=== PATIENT | female | born 1985 | race Caucasian/White ===

== ENCOUNTER 2021-03-23 18:01 | Emergency (ER) | payer SELFPAY ==
[2021-03-23] MEDS ORDERED: Dexamethasone 10 MG/ML SDV IVPUSH ONE (18:11)
[2021-03-23] MEDS ORDERED: Sodium Chloride 0.9% 1,000 ML IV ONE (18:11)
[2021-03-23] MEDS ORDERED: Acetaminophen 500 MG Tab PO ONE (18:12)
--- NOTE | 2021-03-23 18:19 | EDM.PDOC ---
<OrionphilPiotr gabriel Gurdeep - Last Filed: 03/23/21 18:36> ED HPI GENERAL MEDICAL PROBLEM - General Chief Complaint: Respiratory Problem Stated Complaint: LOW OXYGEN 85%, COVID POS Time Seen by Provider: 03/23/21 18:07 Source of Information: Reports: Patient History Limitations: Reports: No Limitations - History of Present Illness INITIAL COMMENTS - FREE TEXT/NARRATIVE: 35-year-old female past medical history obesity, asthma presents for worsening shortness of breath in setting of known Covid infection. Patient states that she began to feel symptomatic with Covid 4 days ago. She went for testing yesterday and tested positive. She was given albuterol nebulizer treatments and sent home. Today she notes worsening symptoms and has been checking her oxygen saturation at home which was 88% on room air. She notes body aches, fever, nonproductive cough, shortness of breath, diarrhea. She denies vomiting or chest pain. She feels dehydrated. She did not get a Covid vaccine. - Related Data Allergies Allergy/AdvReac Type Severity Reaction Status Date / Time No Known Allergies Allergy Verified 03/23/21 18:08 Home Meds: Home Meds Ramipril 10 mg PO DAILY 03/23/21 [History] ED ROS GENERAL - Review of Systems Review Of Systems: Comprehensive ROS is negative, except as noted in HPI. ED EXAM, GENERAL - Physical Exam Exam: See Below Exam Limited By: No Limitations General Appearance: Alert, WD/WN, No Apparent Distress Ears: Hearing Grossly Normal Throat/Mouth: Normal Voice, No Airway Compromise Head: Atraumatic, Normocephalic Respiratory/Chest: No Respiratory Distress, Lungs Clear, Normal Breath Sounds, No Accessory Muscle Use Cardiovascular: Normal Peripheral Pulses, Regular Rate, Rhythm GI/Abdominal: Soft, Non-Tender Extremities: Normal Inspection Neurological: Alert, Normal Cognition, Normal Gait Psychiatric: Normal Affect, Normal Mood Skin Exam: Warm, Dry, Intact, Normal Color Course - Re-Assessments/Exams Free Text/Narrative Re-Assessment/Exam: 03/23/21 18:18 Patient is hypoxic on room air to 86%. She improves with nasal cannula oxygen. Will get labs and imaging. 03/23/21 19:00 Patient care transitioned to Dr. Rodriguez pending labs and imaging Departure - Departure Disposition: Home, Self-Care 01 Clinical Impression: COVID-19, Hypoxia - Discharge Information Instructions: Hypoxia, COVID-19: How to Protect Yourself and Others - [facility] [place] Referrals: PCP,None [Primary Care Provider] - Forms: ED Department Discharge Additional Instructions: The following information is given to patients seen in the emergency department who are being discharged to home. This information is to outline your options for follow-up care. We provide all patients seen in our emergency department with a follow-up referral. The need for follow-up, as well as the timing and circumstances, are variable depending upon the specifics of your emergency department visit. If you don't have a primary care physician on staff, we will provide you with a referral. We always advise you to contact your personal physician following an emergency department visit to inform them of the circumstance of the visit and for follow-up with them and/or the need for any referrals to a consulting specialist. The emergency department will also refer you to a specialist when appropriate. This referral assures that you have the opportunity for follow-up care with a specialist. All of these measure are taken in an effort to provide you with optimal care, which includes your follow-up. Under all circumstances we always encourage you to contact your private physician who remains a resource for coordinating your care. When calling for follow-up care, please make the office aware that this follow-up is from your recent emergency room visit. If for any reason you are refused follow-up, please contact the [facility] Emergency Department at and asked to speak to the emergency department charge nurse. Please follow up with your primary care physician. If you do not have a primary care physician, see below: [facility] [address] [place] [id number] [facility] [address] [place] [id number] You were seen today for shortness of breath. This is likely related to your Covid diagnosis. We also did a CT that did not show any pulmonary emboli in your lungs. We placed you on oxygen through nasal cannula to help maintain oxygen level. We will send you home with an oxygen concentrator so that you can have oxygen while you are home. If you have worsening symptoms please return to ED immediately. Sepsis Event Note (ED) - Evaluation Sepsis Screening Result: No Definite Risk <Brandon Rodriguez - Last Filed: 03/23/21 21:13> Course - Vital Signs Last Recorded V/S: Last Vital Signs Temp 96.6 F L 03/23/21 18:13 Pulse 79 03/23/21 18:38 Resp 16 03/23/21 18:13 BP 145/84 H 03/23/21 18:38 Pulse Ox 98 03/23/21 18:38 - Orders/Labs/Meds Orders: Active Orders 24 hr Category Date Time Status Cardiac Monitoring [RC] . DIRECTED Care 03/23/21 18:11 Active Pulse Oximetry [RC] ASDIRECTED Care 03/23/21 18:11 Active Saline Lock Insert [OM.PC] Stat Oth 03/23/21 18:11 Ordered Labs: Laboratory Tests 03/23/21 03/23/21 03/23/21 Range/Units 18:09 18:09 18:09 WBC 5.01 (4.0-11.0) K/uL RBC 4.62 (4.30-5.90) M/uL Hgb 13.9 (12.0-16.0) g/dL Hct 40.2 (36.0-46.0) % MCV 87.0 (80.0-98.0) fL MCH 30.1 (27.0-32.0) pg MCHC 34.6 (31.0-37.0) g/dL RDW Std Deviation 40.7 (28.0-62.0) fl RDW Coeff of Zulma 13 (11.0-15.0) % Plt Count 256 (150-400) K/uL MPV 10.20 (7.40-12.00) fL Neut % (Auto) 60.1 (48.0-80.0) % Lymph % (Auto) 28.5 (16.0-40.0) % [place] % (Auto) 11.4 (0.0-15.0) % Eos % (Auto) 0.0 (0.0-7.0) % Baso % (Auto) 0.0 (0.0-1.5) % Neut # (Auto) 3.0 (1.4-5.7) K/uL Lymph # (Auto) 1.4 (0.6-2.4) K/uL [place] # (Auto) 0.6 (0.0-0.8) K/uL Eos # (Auto) 0.0 (0.0-0.7) K/uL Baso # (Auto) 0.0 (0.0-0.1) K/uL Nucleated RBC % 0.0 /100WBC Nucleated RBCs # 0 K/uL INR 1.04 APTT 29.9 (18.6-31.3) SEC D-Dimer, Quantitative 0.55 H (0.0-0.50) mg/L FEU Sodium 138 (136-145) mmol/L Potassium 2.8 L (3.5-5.1) mmol/L Chloride 96 L (98-107) mmol/L Carbon Dioxide 31.1 (21.0-32.0) mmol/L BUN 11 (7.0-18.0) mg/dL Creatinine 1.4 H (0.6-1.0) mg/dL Est Cr Clr Drug Dosing 51.00 mL/min Estimated GFR (MDRD) 42.5 ml/min Glucose 109 H (74-106) mg/dL Lactic Acid (0.4-2.0) mmol/L Calcium 7.9 L (8.5-10.1) mg/dL Total Bilirubin 0.8 (0.2-1.0) mg/dL AST 60 H (15-37) IU/L ALT 56 (14-63) IU/L Alkaline Phosphatase 88 (46-116) U/L Troponin I < 0.050 (0.000-0.056) ng/mL C-Reactive Protein 12.90 H (0.00-0.90) mg/dL Total Protein 7.6 (6.4-8.2) g/dL Albumin 3.5 (3.4-5.0) g/dL Globulin 4.1 H (2.6-4.0) g/dL Albumin/Globulin Ratio 0.9 (0.9-1.6) Urine HCG, Qual (NEGATIVE) SARS-CoV-2 RNA (REJI) (NEGATIVE) 03/23/21 03/23/21 03/23/21 Range/Units 18:15 18:22 19:22 WBC (4.0-11.0) K/uL RBC (4.30-5.90) M/uL Hgb (12.0-16.0) g/dL Hct (36.0-46.0) % MCV (80.0-98.0) fL MCH (27.0-32.0) pg MCHC (31.0-37.0) g/dL RDW Std Deviation (28.0-62.0) fl RDW Coeff of Zulma (11.0-15.0) % Plt Count (150-400) K/uL MPV (7.40-12.00) fL Neut % (Auto) (48.0-80.0) % Lymph % (Auto) (16.0-40.0) % [place] % (Auto) (0.0-15.0) % Eos % (Auto) (0.0-7.0) % Baso % (Auto) (0.0-1.5) % Neut # (Auto) (1.4-5.7) K/uL Lymph # (Auto) (0.6-2.4) K/uL [place] # (Auto) (0.0-0.8) K/uL Eos # (Auto) (0.0-0.7) K/uL Baso # (Auto) (0.0-0.1) K/uL Nucleated RBC % /100WBC Nucleated RBCs # K/uL INR APTT (18.6-31.3) SEC D-Dimer, Quantitative (0.0-0.50) mg/L FEU Sodium (136-145) mmol/L Potassium (3.5-5.1) mmol/L Chloride (98-107) mmol/L Carbon Dioxide (21.0-32.0) mmol/L BUN (7.0-18.0) mg/dL Creatinine (0.6-1.0) mg/dL Est Cr Clr Drug Dosing mL/min Estimated GFR (MDRD) ml/min Glucose (74-106) mg/dL Lactic Acid 0.9 (0.4-2.0) mmol/L Calcium (8.5-10.1) mg/dL Total Bilirubin (0.2-1.0) mg/dL AST (15-37) IU/L ALT (14-63) IU/L Alkaline Phosphatase (46-116) U/L Troponin I (0.000-0.056) ng/mL C-Reactive Protein (0.00-0.90) mg/dL Total Protein (6.4-8.2) g/dL Albumin (3.4-5.0) g/dL Globulin (2.6-4.0) g/dL Albumin/Globulin Ratio (0.9-1.6) Urine HCG, Qual NEGATIVE (NEGATIVE) SARS-CoV-2 RNA (REJI) POSITIVE H (NEGATIVE) Meds: Medications Discontinued Medications Generic Name Dose Route Start Last Admin Trade Name Shantell PRN Reason Stop Dose Admin Acetaminophen 1,000 mg 03/23/21 18:12 03/23/21 18:19 Acetaminophen 500 Mg Tab PO 03/23/21 18:13 1,000 mg ONETIME ONE Administration Dexamethasone 6 mg 03/23/21 18:11 03/23/21 18:19 Dexamethasone 10 Mg/Ml Sdv IVPUSH 03/23/21 18:12 6 mg ONETIME ONE Administration Sodium Chloride 1,000 mls @ 999 mls/hr 03/23/21 18:11 03/23/21 18:19 Normal Saline IV 03/23/21 19:11 999 mls/hr .Bolus ONE Administration Iopamidol 50 ml 03/23/21 20:28 03/23/21 20:29 Iopamidol 755 Mg/Ml 500 Ml Multipack Bottle IVPUSH 03/23/21 20:29 50 ml ONETIME STA Administration - Re-Assessments/Exams Free Text/Narrative Re-Assessment/Exam: 03/23/21 21:10 Patient elevated D-dimer we did a CT PE did not show any pulmonary emboli. Patient was try to wean off oxygen but oxygen level drops down to the mid 80s. She was placed back on 2 L oxygen improved greater than 98%. Patient looks comfortable on oxygen. We do not have any beds available in the hospital and also we have called various other patients there are no beds available in the state either. We will try to send patient home home O2 as she is requiring this to maintain oxygen saturation. Departure - Departure Time of Disposition: 21:12 Condition: Good - Discharge Information *PRESCRIPTION DRUG MONITORING PROGRAM REVIEWED*: Not Applicable *COPY OF PRESCRIPTION DRUG MONITORING REPORT IN PATIENT ELISA: Not Applicable Critical Care Note - Critical Care Note Total Time (mins): 45 Comments: Critical Care Procedure Note Authorized and Performed by: Dr. Rodriguez Total critical care time: Approximately Due to a high probability of clinically significant, life threatening deterioration, the patient required my highest level of preparedness to intervene emergently and I personally spent this critical care time directly and personally managing the patient. This critical care time included obtaining a history; examining the patient; pulse oximetry; ordering and review of studies; arranging urgent treatment with development of a management plan; evaluation of patient's response to treatment; frequent reassessment; and, discussions with other providers. This critical care time was performed to assess and manage the high probability of imminent, life-threatening deterioration that could result in multi-organ failure. It was exclusive of separately billable procedures and treating other patients and teaching time. Sepsis Event Note (ED) - Focused Exam Vital Signs: Vital Signs Temp Pulse Resp BP Pulse Ox 03/23/21 18:38 79 145/84 H 98 03/23/21 18:13 96.6 F L 84 16 146/85 H 89 L
[2021-03-23 18:42] LABS: BLOOD UREA NITROGEN,BUN 11 mg/dL (7.0-18.0); CARBON DIOXIDE,CO2 31.1 mmol/L (21.0-32.0); CHLORIDE,CL 96 mmol/L (98-107); GLUCOSE RANDOM 109 mg/dL (74-106); POTASSIUM,K 2.8 mmol/L (3.5-5.1); SODIUM,NA 138 mmol/L (136-145)
--- NOTE | 2021-03-23 19:47 | CR ---
Indication: COVID positive Technique: Chest 1 view Comparison: None Findings/Impression: Low lung volumes accentuate the cardiac size. There are patchy opacities in the left mid lung which may represent COVID pneumonia. No pneumothorax or effusion. No acute osseous abnormality. Dictated by Huma Agudelo MD @ 03/23/2021 7:46:52 PM (Electronically Signed)
[2021-03-23] MEDS ORDERED: Iopamidol 755 MG/ML 500 ML Multipack Bottle IVPUSH STA (20:28)
--- NOTE | 2021-03-23 20:48 | CT ---
HISTORY: COVID infection. Hypoxia. Elevated D-dimer. TECHNIQUE: CT chest with IV contrast, pulmonary embolism protocol. 50 mL [id number] IV. COMPARISON: None. FINDINGS: Pulmonary arteries: No pulmonary embolism. Main pulmonary artery is normal caliber. Lungs: Central airways are patent. Patchy airspace consolidation involving all lobes of both lungs, moderate on the left and mild on the right. Associated mild patchy ground-glass opacities bilaterally. Mild atelectasis in the left lower lobe. No pleural effusion or pneumothorax. Mediastinum: Thoracic aorta is normal caliber. No pericardial effusion. Lymph nodes: No lymphadenopathy. Musculoskeletal: Degenerative changes of the spine. Upper min: Unremarkable. IMPRESSION: 1. No pulmonary embolism. 2. Multifocal bilateral airspace disease consistent with pneumonia, likely COVID pneumonia. Please note that all CT scans at this facility use dose modulation, iterative reconstruction, and/or weight-based dosing when appropriate to reduce radiation dose to as low as reasonably achievable. Dictated by Yoav Mendez MD @ 03/23/2021 8:46:33 PM (Electronically Signed)
== END 2021-03-23 21:27 | disposition home or self-care (01) ==
LOC: MW.ED 18:01
DX: U07.1 COVID-19 (principal); R09.02 Hypoxemia; E66.9 Obesity, unspecified; Z68.36 Body mass index [BMI] 36.0-36.9, adult; Z79.899 Other long term (current) drug therapy
CPT/HCPCS: 36415; 71045; 71275; 80053; 81025; 83605; 84484; 85025; 85379; 85610; 85730; 86140; 87635; 93005; 96374; 99285; A9270; J1100; J7030; Q9967; U0002

== ENCOUNTER 2021-03-26 10:00 | Inpatient (IN) | payer MEDICAID ==
[2021-03-26] MEDS ORDERED: Sodium Chloride 0.9% 10 ML Syringe FLUSH PRN (10:44)
[2021-03-26] MEDS ORDERED: Acetaminophen 325 MG Tab PO ONE (10:44)
[2021-03-26] MEDS ORDERED: Sodium Chloride 0.9% 1,000 ML IV ONE (10:44)
[2021-03-26] MEDS ORDERED: Sodium Chloride 0.9% 2.5 ML Syringe FLUSH PRN (10:44)
[2021-03-26] MEDS ORDERED: Ketorolac 30 MG/ML SDV IVPUSH ONE (10:44)
[2021-03-26] MEDS ORDERED: Ondansetron 4 MG/2 ML SDV IVPUSH ONE (10:44)
--- NOTE | 2021-03-26 10:45 | EDM.PDOC ---
ED HPI GENERAL MEDICAL PROBLEM - General Chief Complaint: General Stated Complaint: COVID POS/SOB Time Seen by Provider: 03/26/21 10:07 Source of Information: Reports: Patient History Limitations: Reports: No Limitations - History of Present Illness INITIAL COMMENTS - FREE TEXT/NARRATIVE: HISTORY AND PHYSICAL: History of present illness: The patient is a 35-year-old female with a BMI of 37.3 presents to the emergency room with complaints of shortness of breath after being diagnosed with COVID-19 on March 22. Her symptoms started on March 19, 2021. The patient p resents on 2 L per nasal cannula of O2 with an SPO2 of 88%. The patient complains of a headache, dizziness, shortness of breath, and nausea. The patient states that on Monday when she presented due to worsening shortness of breath and was placed on home O2 whenever she would try to sleep her SPO2 would drop to 85%. The patient states that she has been unable to eat and is extremely hungry. In the emergency department the patient is hypertensive with a blood pressure 162/81 and tachycardic with a pulse of 103. She is febrile with a temperature of 104.4. She is tachypneic with a respiratory rate of 39 and shallow. Her SPO2 on 2 L per nasal cannula after exertion was 77%. Review of systems: As per history of present illness and below otherwise all systems reviewed and negative. Past medical history: As per history of present illness and as reviewed below otherwise noncontributory. Surgical history: As per history of present illness and as reviewed below otherwise noncontri butory. Social history: See social history for further information Family history: As per history of present illness and as reviewed below otherwise noncontributory. Physical exam: General: Well developed and well nourished. Alert and orientated x 3. Ill acting in appearance and mild distress. Nursing notes were reviewed. HEENT: Atraumatic, normocephalic, pupils equal and reactive bilaterally, negative for conjunctival pallor or scleral icterus, mucous membranes moist, TMs normal bilaterally, throat clear, neck supple, nontender, trachea midline. No drooling or trismus noted. No meningeal signs. No hot potato voice noted. Lungs: Clear to auscultation bilaterally. No wheezes, rales, or rhonchi. Chest nontender. Tachypneic, no accessory muscles used. Heart: S1S2, tachycardic without overt murmur, gallops, or rubs. No JVD. No peripheral edema Abdomen: Soft, nondistended, nontender. Normoactive bowel sounds. Negative for masses or costovertebral tenderness. Skin: Intact, warm, dry. No lesions or rashes noted. Hematologic: No petechiae or purpra. Mucosa appropriate color and normal nail bed color and refill. Extremities: Atraumatic, moves all extremities per self without difficulty or deficits, negative for cords or calf pain. Neurovascular unremarkable. Neuro: Awake, alert, oriented. Cranial nerves II through XII unremarkable. Cerebellum unremarkable. Motor and sensory unremarkable throughout. Exam nonfocal. Psychiatric: Mood and affect are appropriate. Normal thought process. Answering questions appropriately. Notes: *This patient was seen and evaluated during the 2019 SARS-CoV-2 novel coronavirus pandemic period. Community viral transmission is ongoing at time of this encounter and the emergency department is operating under pandemic response procedures. As stated above the patient is a 35-year-old female who presents to the emergency room with complaints of shortness of breath after being diagnosed with Covid on March 22. Her symptoms started on March 19, 2021. The patient presents on 2 L per nasal cannula of O2 with an SPO2 of 77%. The patient is tachypneic with a respiration rate of 40. The patient desats into the mid 80s with any exertion. At present the patient is on 5 L per nasal cannula with an SPO2 of 90% at rest. Dr. Nielsen consulted on possibility of high flow oxygen and his advised to wait at this time. The patient had a pulmonary angiogram on March 23 and was read as 1 no pulmonary embolism, 2 multifocal bilateral airspace disease consistent with pneumonia, likely Covid pneumonia per the radiologist. The patient has already been diagnosed with COVID pneumonia not order a repeat chest x-ray. The patient's urine hCG on 03/23/2021 was negative. I will not repeat another urine hCG. The patient states that she is not . The patient's temperature is 104.4 and I will treat her with Tylenol. Upon reading Dr. Rodriguez's notes he attempted to place the patient on 03/23/2021, however, was unable to due to no beds in several facilities and as the patient did well while on 2 L of O2 she was discharged home with instructions to follow-up if her O2 sat fell below 90%. I will order lab work, EKG, IV fluids, Tylenol, & Toradol. The patient CMP is significant for hyponatremia of 135 and hypokalemia of 3.2. The patient's chloride is also low at 94. Patient's lactic acid is normal at 1.2. The patient hypocalcemia is 880. Patient's total bilirubin is 1.6. Patient's AST 89, ALT 72 and albumin is 2.8. The patient CBC is unremarkable. I spoke with Dr. Farrell the hospitalist regarding admission. Dr. Rivas agrees with admission but would like a chest x-ray and a troponin added on. I have ordered these. Dr. Rivas would also like Remdesivir 200 mg loading dose while in the emergency department. I have ordered this also. Upon completion of the troponin and chest x-ray, the patient will be admitted inpatient on telemetry. The patient's troponin I is less than 0.050. Chest x-ray IMPRESSION: Relatively severe COVID pneumonitis has worsened since the prior exam. Upon transfer to the floor I was informed the patient's O2 sat was at 85% and the patient would be set up on high flow oxygen on the floor. I phoned Dr. Rivas to inform her of this change the patient. Diagnostics: EKG, CBC, CMP, blood cultures, lactic acid, Therapeutics: V fluids, Toradol, Tylenol, Zofran Impression: Hypoxemia, COVID-19 pneumonia Definitive disposition and diagnosis as appropriate pending reevaluation and review of above. head Pain Score (Numeric/FACES): 7 - Related Data Allergies Allergy/AdvReac Type Severity Reaction Status Date / Time No Known Allergies Allergy Verified 03/26/21 15:28 Home Meds: Home Meds Ramipril 10 mg PO DAILY 03/23/21 [History] Past Medical History - Past Health History Medical/Surgical History: Denies Medical/Surgical History Cardiovascular History: Reports: Hypertension - Infectious Disease History Infectious Disease History: Reports: Chicken Pox - Past Surgical History Other HEENT Surgeries/Procedures: wears glasses Social & Family History - Family History Family Medical History: No Pertinent Family History - Tobacco Use Tobacco Use Status *Q: Never Tobacco User - Caffeine Use Caffeine Use: Reports: None - Recreational Drug Use Recreational Drug Use: No ED ROS GENERAL - Review of Systems Review Of Systems: Comprehensive ROS is negative, except as noted in HPI. ED EXAM, GENERAL - Physical Exam Exam: See Below (See dictation) Course - Vital Signs Last Recorded V/S: Last Vital Signs Temp 96.3 F L 03/26/21 14:45 Pulse 87 03/26/21 14:45 Resp 20 03/26/21 14:45 BP 139/83 03/26/21 14:45 Pulse Ox 94 L 03/26/21 14:45 - Orders/Labs/Meds Orders: Active Orders 24 hr Category Date Time Status Admission Status [Patient Status] [ADT] Stat ADT 03/26/21 13:31 Active CULTURE BLOOD [BC] Stat Lab 03/26/21 10:39 Received CULTURE BLOOD [BC] Stat Lab 03/26/21 11:03 Received Sodium Chloride 0.9% [Saline Flush] Med 03/26/21 10:44 Active 10 ml FLUSH ASDIRECTED PRN Sodium Chloride 0.9% [Saline Flush] Med 03/26/21 10:44 Active 2.5 ml FLUSH ASDIRECTED PRN Blood Culture x2 Reflex Set [OM.PC] Stat Oth 03/26/21 10:44 Ordered Saline Lock Insert [OM.PC] Stat Oth 03/26/21 10:43 Ordered Medication Orders Albuterol/Ipratropium (Albuterol/Ipratropium 4 Gm Inhalation [place]) 1 gm INH Q4HRRT PRN PRN Reason: Dyspnea Dexamethasone (Dexamethasone 4 Mg Tab) 6 mg PO DAILY DUYEN Enoxaparin Sodium (Enoxaparin 40 Mg/0.4 Ml Syringe) 40 mg SUBCUT Q24H DUYEN Guaifenesin/Dextromethorphan (Guaifenesin/Dextromethorphan 100-10 Mg/5 Ml Soln 10 Ml Cup) 10 ml PO Q4H PRN PRN Reason: Cough Remdesivir 100 mg/ Sodium (Chloride) 100 mls @ 100 mls/hr IV Q24H DUYEN Stop: 03/30/21 14:29 Ondansetron HCl (Ondansetron 4 Mg/2 Ml Sdv) 4 mg IVPUSH Q6H PRN PRN Reason: Nausea/Vomiting Pantoprazole Sodium (Pantoprazole 40 Mg Tab.Cr) 40 mg PO DAILY DUYEN Sodium Chloride (Sodium Chloride 0.9% 10 Ml Syringe) 10 ml FLUSH ASDIRECTED PRN PRN Reason: Keep Vein Open Last Admin: 03/26/21 10:51 Dose: 10 ml Documented by: MARYANN Sodium Chloride (Sodium Chloride 0.9% 2.5 Ml Syringe) 2.5 ml FLUSH ASDIRECTED PRN PRN Reason: Keep Vein Open Last Admin: 03/26/21 10:51 Dose: 2.5 ml Documented by: MARYANN Labs: Laboratory Tests 03/26/21 03/26/21 03/26/21 Range/Units 10:39 10:39 10:39 WBC 9.22 (4.0-11.0) K/uL RBC 4.34 (4.30-5.90) M/uL Hgb 12.7 (12.0-16.0) g/dL Hct 38.3 (36.0-46.0) % MCV 88.2 (80.0-98.0) fL MCH 29.3 (27.0-32.0) pg MCHC 33.2 (31.0-37.0) g/dL RDW Std Deviation 42.0 (28.0-62.0) fl RDW Coeff of Zulma 13 (11.0-15.0) % Plt Count 267 (150-400) K/uL MPV 10.30 (7.40-12.00) fL Neut % (Auto) 90.9 H (48.0-80.0) % Lymph % (Auto) 5.3 L (16.0-40.0) % [place] % (Auto) 3.7 (0.0-15.0) % Eos % (Auto) 0.0 (0.0-7.0) % Baso % (Auto) 0.1 (0.0-1.5) % Neut # (Auto) 8.4 H (1.4-5.7) K/uL Lymph # (Auto) 0.5 L (0.6-2.4) K/uL [place] # (Auto) 0.3 (0.0-0.8) K/uL Eos # (Auto) 0.0 (0.0-0.7) K/uL Baso # (Auto) 0.0 (0.0-0.1) K/uL Nucleated RBC % 0.0 /100WBC Nucleated RBCs # 0 K/uL Sodium 135 L (136-145) mmol/L Potassium 3.2 L (3.5-5.1) mmol/L Chloride 94 L (98-107) mmol/L Carbon Dioxide 30.6 (21.0-32.0) mmol/L BUN 9 (7.0-18.0) mg/dL Creatinine 1.0 (0.6-1.0) mg/dL Est Cr Clr Drug Dosing 69.98 mL/min Estimated GFR (MDRD) > 60.0 ml/min Glucose 97 (74-106) mg/dL Lactic Acid 1.2 (0.4-2.0) mmol/L Calcium 8.0 L (8.5-10.1) mg/dL Total Bilirubin 1.6 H (0.2-1.0) mg/dL AST 89 H (15-37) IU/L ALT 72 H (14-63) IU/L Alkaline Phosphatase 101 (46-116) U/L Troponin I (0.000-0.056) ng/mL Total Protein 6.8 (6.4-8.2) g/dL Albumin 2.8 L (3.4-5.0) g/dL Globulin 4.0 (2.6-4.0) g/dL Albumin/Globulin Ratio 0.7 L (0.9-1.6) 03/26/21 Range/Units 10:39 WBC (4.0-11.0) K/uL RBC (4.30-5.90) M/uL Hgb (12.0-16.0) g/dL Hct (36.0-46.0) % MCV (80.0-98.0) fL MCH (27.0-32.0) pg MCHC (31.0-37.0) g/dL RDW Std Deviation (28.0-62.0) fl RDW Coeff of Zulma (11.0-15.0) % Plt Count (150-400) K/uL MPV (7.40-12.00) fL Neut % (Auto) (48.0-80.0) % Lymph % (Auto) (16.0-40.0) % [place] % (Auto) (0.0-15.0) % Eos % (Auto) (0.0-7.0) % Baso % (Auto) (0.0-1.5) % Neut # (Auto) (1.4-5.7) K/uL Lymph # (Auto) (0.6-2.4) K/uL [place] # (Auto) (0.0-0.8) K/uL Eos # (Auto) (0.0-0.7) K/uL Baso # (Auto) (0.0-0.1) K/uL Nucleated RBC % /100WBC Nucleated RBCs # K/uL Sodium (136-145) mmol/L Potassium (3.5-5.1) mmol/L Chloride (98-107) mmol/L Carbon Dioxide (21.0-32.0) mmol/L BUN (7.0-18.0) mg/dL Creatinine (0.6-1.0) mg/dL Est Cr Clr Drug Dosing mL/min Estimated GFR (MDRD) ml/min Glucose (74-106) mg/dL Lactic Acid (0.4-2.0) mmol/L Calcium (8.5-10.1) mg/dL Total Bilirubin (0.2-1.0) mg/dL AST (15-37) IU/L ALT (14-63) IU/L Alkaline Phosphatase (46-116) U/L Troponin I < 0.050 (0.000-0.056) ng/mL Total Protein (6.4-8.2) g/dL Albumin (3.4-5.0) g/dL Globulin (2.6-4.0) g/dL Albumin/Globulin Ratio (0.9-1.6) Meds: Medications Generic Name Dose Route Start Last Admin Trade Name Freq PRN Reason Stop Dose Admin Albuterol/Ipratropium 1 gm 03/26/21 18:00 Albuterol/Ipratropium 4 Gm Inhalation [place] INH Q4HRRT PRN Dyspnea Dexamethasone 6 mg 03/26/21 18:00 Dexamethasone 4 Mg Tab PO DAILY DUYEN Enoxaparin Sodium 40 mg 03/26/21 18:00 Enoxaparin 40 Mg/0.4 Ml Syringe SUBCUT Q24H DUYEN Guaifenesin/Dextromethorphan 10 ml 03/26/21 18:00 Guaifenesin/Dextromethorphan 100-10 Mg/5 Ml Soln 10 Ml Cup PO Q4H PRN Cough Remdesivir 100 mg/ Sodium 100 mls @ 100 mls/hr 03/27/21 13:30 Chloride IV 03/30/21 14:29 Q24H DUYEN Ondansetron HCl 4 mg 03/26/21 18:00 Ondansetron 4 Mg/2 Ml Sdv IVPUSH Q6H PRN Nausea/Vomiting Pantoprazole Sodium 40 mg 03/27/21 09:00 Pantoprazole 40 Mg Tab.Cr PO DAILY DUYEN Sodium Chloride 10 ml 03/26/21 10:44 03/26/21 10:51 Sodium Chloride 0.9% 10 Ml Syringe FLUSH 10 ml ASDIRECTED PRN Administration Keep Vein Open Sodium Chloride 2.5 ml 03/26/21 10:44 03/26/21 10:51 Sodium Chloride 0.9% 2.5 Ml Syringe FLUSH 2.5 ml ASDIRECTED PRN Administration Keep Vein Open Discontinued Medications Generic Name Dose Route Start Last Admin Trade Name Freq PRN Reason Stop Dose Admin Acetaminophen 650 mg 03/26/21 10:44 03/26/21 10:50 Acetaminophen 325 Mg Tab PO 03/26/21 10:45 650 mg NOW ONE Administration Sodium Chloride 1,000 mls @ 999 mls/hr 03/26/21 10:44 03/26/21 10:51 Normal Saline IV 03/26/21 11:44 999 mls/hr .BOLUS ONE Administration Remdesivir 200 mg/ Sodium 250 mls @ 250 mls/hr 03/26/21 12:30 03/26/21 12:44 Chloride IV 03/26/21 13:29 250 mls/hr ONETIME ONE Administration Ketorolac Tromethamine 30 mg 03/26/21 10:44 03/26/21 10:50 Ketorolac 30 Mg/Ml Sdv IVPUSH 03/26/21 10:45 30 mg ONETIME ONE Administration Ondansetron HCl 4 mg 03/26/21 10:44 03/26/21 10:50 Ondansetron 4 Mg/2 Ml Sdv IVPUSH 03/26/21 10:45 4 mg ONETIME ONE Administration Departure - Departure Time of Disposition: 13:31 Disposition: Admitted As Inpatient 65 Condition: Fair Clinical Impression: Hypoxemia, Pneumonia due to COVID-19 virus - Discharge Information Sepsis Event Note (ED) - Evaluation Sepsis Screening Result: Possible Sepsis Risk - Focused Exam Vital Signs: Vital Signs Temp Temp Pulse Resp BP Pulse Ox 03/26/21 12:26 81 28 H 124/70 91 L 03/26/21 11:35 101.4 F H 96 18 128/73 93 L 03/26/21 10:55 100 30 H 155/76 H 96 03/26/21 10:50 104.4 F H 03/26/21 10:27 103 H 20 154/85 H 89 L 03/26/21 10:22 104.4 F H 103 H 39 H 162/81 H 77 L - My Orders Last 24 Hours: My Active Orders 03/26/21 10:39 CULTURE BLOOD [BC] Stat 03/26/21 10:43 Saline Lock Insert [OM.PC] Stat 03/26/21 10:44 Sodium Chloride 0.9% [Saline Flush] 10 ml FLUSH ASDIRECTED PRN Sodium Chloride 0.9% [Saline Flush] 2.5 ml FLUSH ASDIRECTED PRN Blood Culture x2 Reflex Set [OM.PC] Stat 03/26/21 11:03 CULTURE BLOOD [BC] Stat 03/26/21 13:31 Admission Status [Patient Status] [ADT] Stat - Assessment/Plan Last 24 Hours: My Active Orders 03/26/21 10:39 CULTURE BLOOD [BC] Stat 03/26/21 10:43 Saline Lock Insert [OM.PC] Stat 03/26/21 10:44 Sodium Chloride 0.9% [Saline Flush] 10 ml FLUSH ASDIRECTED PRN Sodium Chloride 0.9% [Saline Flush] 2.5 ml FLUSH ASDIRECTED PRN Blood Culture x2 Reflex Set [OM.PC] Stat 03/26/21 11:03 CULTURE BLOOD [BC] Stat 03/26/21 13:31 Admission Status [Patient Status] [ADT] Stat
--- NOTE | 2021-03-26 10:49 | PCM.EKG ---
#1 Interpretation EKG Interpretation Comments: EKG performed 03/26/2021 at 10:41 AM sinus tachycardia heart rate 103 [place] interval 148 QT duration 409 [place] [address] and T normal compared to 03/23/2021 no significant change. Impression sinus tachycardia and otherwise normal
[2021-03-26 11:21] LABS: BLOOD UREA NITROGEN,BUN 9 mg/dL (7.0-18.0); CARBON DIOXIDE,CO2 30.6 mmol/L (21.0-32.0); CHLORIDE,CL 94 mmol/L (98-107); GLUCOSE RANDOM 97 mg/dL (74-106); POTASSIUM,K 3.2 mmol/L (3.5-5.1); SODIUM,NA 135 mmol/L (136-145)
[2021-03-26] MEDS ORDERED: REMDESIVIR 200 MG in Sodium Chloride 0.9% 250 ML IV ONE ×2 (11:39→12:30)
[2021-03-26] MEDS ORDERED: Ondansetron 4 MG/2 ML SDV IVPUSH PRN (18:00)
[2021-03-26] MEDS ORDERED: Albuterol/Ipratropium 4 GM Inhalation Spray INH PRN (18:00)
[2021-03-26] MEDS: Enoxaparin 40 MG/0.4 ML Syringe SUBCUT SCH (18:45)
[2021-03-26] MEDS: Dexamethasone 4 MG Tab PO SCH (18:45)
--- NOTE | 2021-03-26 18:52 | PCM.HP.2 ---
<Elen Cortes - Last Filed: 03/26/21 18:44> H&P History of Present Illness - General Date of Service: 03/26/21 Admit Problem/Dx: Admission Diagnosis/Problem Admission Diagnosis/Problem Hypoxemia - History of Present Illness Initial Comments - Free Text/Narative: The patient is a 35-year-old female, on day 1 of service, with a significant past medical history of hypertension, who was admitted to the medical floor today due to acute respiratory failure secondary to COVID-19 pneumonia. The patient explains that on 03/22 she was diagnosed with COVID-19. Her symptoms started on 03/19 with shortness of breath, nausea, nonbilious and nonbloody vomiting, frontal headache which is 4 out of 10 in intensity, dull in nature, and nonradiating, and dizziness. The patient explains that she has had many recent sick contacts with COVID-19 and she attributes her current infection to that. She denies any chest pain, palpitations, abdominal pain, diarrhea, loss of taste or smell, but does admit to feeling extremely tired. On social history, she denies any cigarette smoking, alcohol consumption, or recreational drug use. Her family history is consistent with hypertension in both her mother and father. She does not have any allergies. She has no other complaints at this time. On CBC her white blood cell count is 9.22, hemoglobin is 12.7, hematocrit is 38.3, and platelet count is 267 On CMP, her sodium is 135, potassium 3.2, chloride is 94, carbon dioxide is 30.6, AST is 89, ALT is 72 On EKG, she is sinus tachycardic, with a heart rate of 103, CT interval 148, QT duration of 409, QRS is normal ST is normal In the emergency room, she was seen by Dr. Nielsen, she had 2 blood cultures drawn which are pending, a chest x-ray done which is pending, 1 normal saline bolus of 1000 mL, as she was initiated on remdesivir 200 mg per IV route once. 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 Denies: Diaphoresis, Decreased Appetite HEENT: Reports: Headaches. Denies: Sore Throat Pulmonary: Reports: Shortness of Breath, Cough. Denies: Wheezing Cardiovascular: Denies: Chest Pain, Palpitations Gastrointestinal: Denies: Abdominal Pain Genitourinary: Denies: Dysuria Exam - Exam Exam: See Below - Vital Signs Vital Signs: Last Vital Signs Temp 96.3 F L 03/26/21 14:45 Pulse 87 03/26/21 14:45 Resp 20 03/26/21 14:45 BP 139/83 03/26/21 14:45 Pulse Ox 94 L 03/26/21 14:45 Weight: 101.605 kg - Exam General: Alert, Oriented, Cooperative HEENT: Mucosa Moist & [place] Neck: Trachea Midline Lungs: Wheezing Cardiovascular: Tachycardia GI/Abdominal Exam: Normal Bowel Sounds, Soft, Non-Tender, No Organomegaly Extremities: Other (SCDs in place bilaterally on lower extremities) - Patient Data Lab Results Last 24 hrs: Laboratory Results - last 24 hr 03/26/21 03/26/21 03/26/21 Range/Units 10:39 10:39 10:39 WBC 9.22 (4.0-11.0) K/uL RBC 4.34 (4.30-5.90) M/uL Hgb 12.7 (12.0-16.0) g/dL Hct 38.3 (36.0-46.0) % MCV 88.2 (80.0-98.0) fL MCH 29.3 (27.0-32.0) pg MCHC 33.2 (31.0-37.0) g/dL RDW Std Deviation 42.0 (28.0-62.0) fl RDW Coeff of Zulma 13 (11.0-15.0) % Plt Count 267 (150-400) K/uL MPV 10.30 (7.40-12.00) fL Neut % (Auto) 90.9 H (48.0-80.0) % Lymph % (Auto) 5.3 L (16.0-40.0) % [place] % (Auto) 3.7 (0.0-15.0) % Eos % (Auto) 0.0 (0.0-7.0) % Baso % (Auto) 0.1 (0.0-1.5) % Neut # (Auto) 8.4 H (1.4-5.7) K/uL Lymph # (Auto) 0.5 L (0.6-2.4) K/uL [place] # (Auto) 0.3 (0.0-0.8) K/uL Eos # (Auto) 0.0 (0.0-0.7) K/uL Baso # (Auto) 0.0 (0.0-0.1) K/uL Nucleated RBC % 0.0 /100WBC Nucleated RBCs # 0 K/uL Sodium 135 L (136-145) mmol/L Potassium 3.2 L (3.5-5.1) mmol/L Chloride 94 L (98-107) mmol/L Carbon Dioxide 30.6 (21.0-32.0) mmol/L BUN 9 (7.0-18.0) mg/dL Creatinine 1.0 (0.6-1.0) mg/dL Est Cr Clr Drug Dosing 69.98 mL/min Estimated GFR (MDRD) > 60.0 ml/min Glucose 97 (74-106) mg/dL Lactic Acid 1.2 (0.4-2.0) mmol/L Calcium 8.0 L (8.5-10.1) mg/dL Total Bilirubin 1.6 H (0.2-1.0) mg/dL AST 89 H (15-37) IU/L ALT 72 H (14-63) IU/L Alkaline Phosphatase 101 (46-116) U/L Troponin I (0.000-0.056) ng/mL Total Protein 6.8 (6.4-8.2) g/dL Albumin 2.8 L (3.4-5.0) g/dL Globulin 4.0 (2.6-4.0) g/dL Albumin/Globulin Ratio 0.7 L (0.9-1.6) 03/26/21 Range/Units 10:39 WBC (4.0-11.0) K/uL RBC (4.30-5.90) M/uL Hgb (12.0-16.0) g/dL Hct (36.0-46.0) % MCV (80.0-98.0) fL MCH (27.0-32.0) pg MCHC (31.0-37.0) g/dL RDW Std Deviation (28.0-62.0) fl RDW Coeff of [place] (11.0-15.0) % Plt Count (150-400) K/uL MPV (7.40-12.00) fL Neut % (Auto) (48.0-80.0) % Lymph % (Auto) (16.0-40.0) % [place] % (Auto) (0.0-15.0) % Eos % (Auto) (0.0-7.0) % Baso % (Auto) (0.0-1.5) % Neut # (Auto) (1.4-5.7) K/uL Lymph # (Auto) (0.6-2.4) K/uL [place] # (Auto) (0.0-0.8) K/uL Eos # (Auto) (0.0-0.7) K/uL Baso # (Auto) (0.0-0.1) K/uL Nucleated RBC % /100WBC Nucleated RBCs # K/uL Sodium (136-145) mmol/L Potassium (3.5-5.1) mmol/L Chloride (98-107) mmol/L Carbon Dioxide (21.0-32.0) mmol/L BUN (7.0-18.0) mg/dL Creatinine (0.6-1.0) mg/dL Est Cr Clr Drug Dosing mL/min Estimated GFR (MDRD) ml/min Glucose (74-106) mg/dL Lactic Acid (0.4-2.0) mmol/L Calcium (8.5-10.1) mg/dL Total Bilirubin (0.2-1.0) mg/dL AST (15-37) IU/L ALT (14-63) IU/L Alkaline Phosphatase (46-116) U/L Troponin I < 0.050 (0.000-0.056) ng/mL Total Protein (6.4-8.2) g/dL Albumin (3.4-5.0) g/dL Globulin (2.6-4.0) g/dL Albumin/Globulin Ratio (0.9-1.6) Result Diagrams: 03/26/21 10:39 03/26/21 10:39 Sepsis Event Note - Evaluation Sepsis Screening Result: No Definite Risk - Focused Exam Vital Signs: Vital Signs Temp Temp Pulse Resp BP Pulse Ox 03/26/21 14:45 96.3 F L 87 20 139/83 94 L 03/26/21 14:14 97.1 F 92 18 120/58 L 90 L 03/26/21 12:26 81 28 H 124/70 91 L 03/26/21 11:35 101.4 F H 96 18 128/73 93 L 03/26/21 10:55 100 30 H 155/76 H 96 03/26/21 10:50 104.4 F H 03/26/21 10:27 103 H 20 154/85 H 89 L 03/26/21 10:22 104.4 F H 103 H 39 H 162/81 H 77 L - Problem List (1) Hypertension SNOMED Code(s): 74996214 ICD Code: I10 - ESSENTIAL (PRIMARY) HYPERTENSION Status: Acute Current Visit: Yes (2) Pneumonia due to COVID-19 virus SNOMED Code(s): 715478962451145611 ICD Code: U07.1 - COVID-19; J12.82 - PNEUMONIA DUE TO CORONAVIRUS DISEASE 2018 Status: Acute Current Visit: Yes (3) COVID-19 SNOMED Code(s): 307382074 ICD Code: U07.1 - COVID-19 Status: Acute Current Visit: No (4) Hypoxia SNOMED Code(s): 408361139 ICD Code: R09.02 - HYPOXEMIA Status: Acute Current Visit: No Problem List Initiated/Reviewed/Updated: Yes Orders Last 24hrs: Active Orders 24 hr Category Date Time Status Admission Status [Patient Status] [ADT] Stat ADT 03/26/21 13:31 Active RT Post Treatment Assessment [RC] Click to Edit Care 03/26/21 17:36 Active RT Pre-Treatment Assessment [RC] Click to Edit Care 03/26/21 17:36 Active Telemetry Monitoring [Cardiac Monitoring] [RC] Q8H Care 03/26/21 16:18 Active Regular Diet [DIET] Diet 03/27/21 Breakfast Active CBC WITH AUTO DIFF [HEME] AM Lab 03/27/21 05:11 Ordered CBC WITH AUTO DIFF [HEME] AM Lab 03/28/21 05:11 Ordered CBC WITH AUTO DIFF [HEME] AM Lab 03/29/21 05:11 Ordered CBC WITH AUTO DIFF [HEME] AM Lab 03/30/21 05:11 Ordered CMP [COMPREHENSIVE METABOLIC PN,CMP] [CHEM] AM Lab 03/27/21 05:11 Ordered CMP [COMPREHENSIVE METABOLIC PN,CMP] [CHEM] AM Lab 03/28/21 05:11 Ordered CMP [COMPREHENSIVE METABOLIC PN,CMP] [CHEM] AM Lab 03/29/21 05:11 Ordered CMP [COMPREHENSIVE METABOLIC PN,CMP] [CHEM] AM Lab 03/30/21 05:11 Ordered CULTURE BLOOD [BC] Stat Lab 03/26/21 10:39 Received CULTURE BLOOD [BC] Stat Lab 03/26/21 11:03 Received Albuterol/Ipratropium [Combivent Respimat] Med 03/26/21 18:00 Active 1 gm INH Q4HRRT PRN Dextromethorphan/guaiFENesin [Robitussin DM] Med 03/26/21 18:00 Active 10 ml PO Q4H PRN Enoxaparin [Lovenox] Med 03/26/21 18:00 Active 40 mg SUBCUT Q24H Ondansetron [Zofran] Med 03/26/21 18:00 Active 4 mg IVPUSH Q6H PRN Pantoprazole [ProTONIX] Med 03/27/21 09:00 Active 40 mg PO DAILY Potassium Chloride [Klor-Con M20] Med 03/26/21 20:00 Once 40 meq PO ONETIME ONE Remdesivir 100 mg Med 03/27/21 13:30 Active Sodium Chloride 0.9% [Normal Saline] 100 ml IV Q24H Sodium Chloride 0.9% [Saline Flush] Med 03/26/21 10:44 Active 10 ml FLUSH ASDIRECTED PRN Sodium Chloride 0.9% [Saline Flush] Med 03/26/21 10:44 Active 2.5 ml FLUSH ASDIRECTED PRN dexAMETHasone Med 03/26/21 18:00 Active 6 mg PO DAILY Blood Culture x2 Reflex Set [OM.PC] Stat Ot 03/26/21 10:44 Ordered Saline Lock Insert [OM.PC] Stat Ot 03/26/21 10:43 Ordered Medication Orders Albuterol/Ipratropium (Albuterol/Ipratropium 4 Gm Inhalation [place]) 1 gm INH Q4HRRT PRN PRN Reason: Dyspnea Dexamethasone (Dexamethasone 4 Mg Tab) 6 mg PO DAILY DUYEN Enoxaparin Sodium (Enoxaparin 40 Mg/0.4 Ml Syringe) 40 mg SUBCUT Q24H DUYEN Guaifenesin/Dextromethorphan (Guaifenesin/Dextromethorphan 100-10 Mg/5 Ml Soln 10 Ml Cup) 10 ml PO Q4H PRN PRN Reason: Cough Remdesivir 100 mg/ Sodium (Chloride) 100 mls @ 100 mls/hr IV Q24H DUYEN Stop: 03/30/21 14:29 Ondansetron HCl (Ondansetron 4 Mg/2 Ml Sdv) 4 mg IVPUSH Q6H PRN PRN Reason: Nausea/Vomiting Pantoprazole Sodium (Pantoprazole 40 Mg Tab.Cr) 40 mg PO DAILY DUYEN Potassium Chloride (Potassium Chloride 20 Meq Tab.Er) 40 meq PO ONETIME ONE Stop: 03/26/21 20:01 Sodium Chloride (Sodium Chloride 0.9% 10 Ml Syringe) 10 ml FLUSH ASDIRECTED PRN PRN Reason: Keep Vein Open Last Admin: 03/26/21 10:51 Dose: 10 ml Documented by: MARYANN Sodium Chloride (Sodium Chloride 0.9% 2.5 Ml Syringe) 2.5 ml FLUSH ASDIRECTED PRN PRN Reason: Keep Vein Open Last Admin: 03/26/21 10:51 Dose: 2.5 ml Documented by: MARYANN Assessment/Plan Comment:: Admit the patient to the medical floor, vitals per unit routine, activity up ad ruthann., DVT prophylaxis with enoxaparin 40 mg subcutaneously, DVT prophylaxis with pantoprazole 40 mg per oral route once a day, regular diet 1. Acute respiratory failure secondary to COVID-19 pneumonia -The patient was given 1 dose of remdesivir 200 mg per IV route in the ER, will continue with remdesivir 100 mg per IV route starting 24 hours after first dose, 4 bags to be given -We will start the patient on dexamethasone 6 mg per oral route once a day -For shortness of breath the patient will be given Combivent therapy -Incentive spirometry in the prone position will be encouraged -Robitussin DM will be given for cough as needed -Oxygen will be supplied as needed, patient is currently on heated high flow, with O2 flow rate of 45, and FiO2 of 75, currently saturating at 94% 2. Hypertension -We will continue with the patient's home dose of ramipril to control her blood pressure, will hold if hypotensive 3. Hypokalemia -The patient has been given 1 dose of potassium chloride 40 mEq per oral route, a.m. CMP <Chris Rivas - Last Filed: 04/03/21 15:49> H&P History of Present Illness - General Admit Problem/Dx: Admission Diagnosis/Problem Admission Diagnosis/Problem Hypoxemia Exam - Vital Signs Vital Signs: Last Vital Signs Temp 36.4 C 04/03/21 13:00 Pulse 81 03/31/21 09:00 Resp 39 H 04/03/21 14:00 BP 127/70 04/03/21 14:00 Pulse Ox 89 L 04/03/21 14:00 - Patient Data Lab Results Last 24 hrs: Laboratory Results - last 24 hr 04/03/21 04/03/21 04/03/21 Range/Units 05:15 05:15 13:05 WBC 7.25 (4.0-11.0) K/uL RBC 4.04 L (4.30-5.90) M/uL Hgb 11.7 L (12.0-16.0) g/dL Hct 35.7 L (36.0-46.0) % MCV 88.4 (80.0-98.0) fL MCH 29.0 (27.0-32.0) pg MCHC 32.8 (31.0-37.0) g/dL RDW Std Deviation 41.7 (28.0-62.0) fl RDW Coeff of Zulma 13 (11.0-15.0) % Plt Count 632 H (150-400) K/uL MPV 10.70 (7.40-12.00) fL Neut % (Auto) 82.2 H (48.0-80.0) % Lymph % (Auto) 9.5 L (16.0-40.0) % [place] % (Auto) 6.6 (0.0-15.0) % Eos % (Auto) 1.7 (0.0-7.0) % Baso % (Auto) 0.0 (0.0-1.5) % Neut # (Auto) 6.0 H (1.4-5.7) K/uL Lymph # (Auto) 0.7 (0.6-2.4) K/uL [place] # (Auto) 0.5 (0.0-0.8) K/uL Eos # (Auto) 0.1 (0.0-0.7) K/uL Baso # (Auto) 0.0 (0.0-0.1) K/uL Nucleated RBC % 0.0 /100WBC Nucleated RBCs # 0 K/uL Sodium 142 (136-145) mmol/L Potassium 4.1 (3.5-5.1) mmol/L Chloride 105 (98-107) mmol/L Carbon Dioxide 27.7 (21.0-32.0) mmol/L BUN 20 H (7.0-18.0) mg/dL Creatinine 0.9 (0.6-1.0) mg/dL Est Cr Clr Drug Dosing 77.76 mL/min Estimated GFR (MDRD) > 60.0 ml/min Glucose 84 (74-106) mg/dL Calcium 8.1 L (8.5-10.1) mg/dL Total Bilirubin 0.8 (0.2-1.0) mg/dL AST 23 (15-37) IU/L ALT 68 H (14-63) IU/L Alkaline Phosphatase 70 (46-116) U/L Total Protein 5.9 L (6.4-8.2) g/dL Albumin 2.1 L (3.4-5.0) g/dL Globulin 3.8 (2.6-4.0) g/dL Albumin/Globulin Ratio 0.6 L (0.9-1.6) Vancomycin Trough 18.6 H (5.0-10.0) ug/mL Result Diagrams: 04/03/21 05:15 04/03/21 05:15 Sepsis Event Note - Focused Exam Vital Signs: Vital Signs Temp Resp BP BP Pulse Ox 04/03/21 14:00 39 H 127/70 89 L 04/03/21 13:00 36.4 C 41 H 93 L 04/03/21 12:00 34 H 123/69 88 L 04/03/21 11:00 33 H 138/71 89 L 04/03/21 10:00 41 H 140/74 83 L 04/03/21 09:00 33 H 138/66 95 04/03/21 08:11 125/62 04/03/21 08:00 36.2 C 19 125/62 92 L 04/03/21 07:00 35 H 150/69 H 90 L 04/03/21 06:00 31 H 95 04/03/21 05:00 34 H 152/80 H 95 04/03/21 04:00 23 H 134/72 91 L - Problem List (1) Acute respiratory failure with hypoxia SNOMED Code(s): 05663875, 060701258 ICD Code: J96.01 - ACUTE RESPIRATORY FAILURE WITH HYPOXIA Status: Acute Current Visit: Yes (2) Hypertension SNOMED Code(s): 40243776 ICD Code: I10 - ESSENTIAL (PRIMARY) HYPERTENSION Status: Acute Current Visit: Yes (3) Hypoxemia SNOMED Code(s): 959280210 ICD Code: R09.02 - HYPOXEMIA Status: Acute Current Visit: Yes (4) Pneumonia due to COVID-19 virus SNOMED Code(s): 714670967606407192 ICD Code: U07.1 - COVID-19; J12.82 - PNEUMONIA DUE TO CORONAVIRUS DISEASE 2019 Status: Acute Current Visit: Yes Orders Last 24hrs: Active Orders 24 hr Category Date Time Status CBC WITH AUTO DIFF [HEME] AM Lab 04/04/21 05:11 Ordered CBC WITH AUTO DIFF [HEME] AM Lab 04/05/21 05:11 Ordered CMP [COMPREHENSIVE METABOLIC PN,CMP] [CHEM] AM Lab 04/04/21 05:11 Ordered CMP [COMPREHENSIVE METABOLIC PN,CMP] [CHEM] AM Lab 04/05/21 05:11 Ordered VANCOMYCIN TROUGH [CHEM] Routine Lab 04/04/21 13:00 Ordered levoFLOXacin [Levaquin] Med 04/03/21 16:00 Active 750 mg PO Q24H Medication Orders Acetaminophen (Acetaminophen 325 Mg Tab) 650 mg PO Q6H PRN PRN Reason: Pain/Fever Last Admin: 04/02/21 09:51 Dose: 650 mg Documented by: Admin: 04/01/21 11:08 Dose: 650 mg Documented by: Admin: 03/31/21 11:06 Dose: 650 mg Documented by: Admin: 03/29/21 00:16 Dose: 650 mg Documented by: Admin: 03/28/21 16:28 Dose: 650 mg Documented by: Admin: 03/26/21 21:19 Dose: 650 mg Documented by: BENITO Albuterol/Ipratropium (Albuterol/Ipratropium 4 Gm Inhalation [place]) 0 gm INH Q4 HRRT [facility]YEN Last Admin: 04/03/21 14:17 Dose: 1 puff Documented by: Admin: 04/03/21 10:00 Dose: 1 puff Documented by: Admin: 04/03/21 06:17 Dose: 1 puff Documented by: Admin: 04/03/21 02:48 Dose: 1 puff Documented by: Admin: 04/02/21 21:39 Dose: 1 puff Documented by: Admin: 04/02/21 18:09 Dose: 1 puff Documented by: Admin: 04/02/21 14:47 Dose: 1 puff Documented by: Admin: 04/02/21 09:55 Dose: 1 puff Documented by: Admin: 04/02/21 05:51 Dose: 1 puff Documented by: Admin: 04/02/21 02:13 Dose: 1 puff Documented by: Admin: 04/01/21 21:32 Dose: 1 puff Documented by: Admin: 04/01/21 17:09 Dose: 1 puff Documented by: Admin: 04/01/21 13:36 Dose: 1 puff Documented by: Admin: 04/01/21 09:45 Dose: 1 puff Documented by: Admin: 04/01/21 05:55 Dose: 1 puff Documented by: Admin: 04/01/21 02:01 Dose: 1 puff Documented by: Admin: 03/31/21 21:22 Dose: 1 puff Documented by: Admin: 03/31/21 17:27 Dose: 1 puff Documented by: Admin: 03/31/21 13:40 Dose: 1 puff Documented by: Admin: 03/31/21 10:05 Dose: Not Given Documented by: Admin: 03/31/21 06:23 Dose: 1 puff Documented by: Admin: 03/31/21 01:08 Dose: 1 puff Documented by: Admin: 03/30/21 21:29 Dose: 1 puff Documented by: Admin: 03/30/21 17:01 Dose: 1 puff Documented by: Admin: 03/30/21 14:13 Dose: 1 puff Documented by: Admin: 03/30/21 09:54 Dose: 1 puff Documented by: Admin: 03/30/21 06:03 Dose: 1 puff Documented by: Admin: 03/30/21 03:05 Dose: 1 puff Documented by: Admin: 03/29/21 22:53 Dose: 1 puff Documented by: Admin: 03/29/21 17:32 Dose: 1 puff Documented by: Admin: 03/29/21 14:45 Dose: Not Given Documented by: Admin: 03/29/21 10:07 Dose: 1 puff Documented by: Admin: 03/29/21 06:07 Dose: Not Given Documented by: Admin: 03/29/21 02:56 Dose: 1 puff Documented by: Admin: 03/28/21 23:13 Dose: 1 puff Documented by: Admin: 03/28/21 17:20 Dose: 1 puff Documented by: Admin: 03/28/21 13:14 Dose: 1 puff Documented by: Admin: 03/28/21 09:29 Dose: 1 puff Documented by: Admin: 03/28/21 06:34 Dose: 1 puff Documented by: Admin: 03/28/21 03:21 Dose: Not Given Documented by: Admin: 03/27/21 22:42 Dose: 1 puff Documented by: Admin: 03/27/21 17:30 Dose: 1 puff Documented by: Admin: 03/27/21 14:15 Dose: 1 puff Documented by: Admin: 03/27/21 09:24 Dose: 1 puff Documented by: Admin: 03/27/21 06:17 Dose: 1 puff Documented by: Admin: 03/27/21 01:12 Dose: 1 puff Documented by: Admin: 03/26/21 21:24 Dose: 1 puff Documented by: BENITO Baricitinib (Baricitinib 2 Mg Tab) 4 mg PO DAILY [facility] Admin: 04/03/21 08:10 Dose: 4 mg Documented by: Admin: 04/02/21 09:50 Dose: 4 mg Documented by: Admin: 04/01/21 09:56 Dose: 4 mg Documented by: Admin: 03/31/21 09:17 Dose: 4 mg Documented by: Admin: 03/30/21 09:51 Dose: 4 mg Documented by: DARLYN Dexamethasone (Dexamethasone 4 Mg Tab) 6 mg PO DAILY [facility] Admin: 04/03/21 08:11 Dose: 6 mg Documented by: Admin: 04/02/21 09:49 Dose: 6 mg Documented by: Admin: 04/01/21 09:53 Dose: 6 mg Documented by: Admin: 03/31/21 09:20 Dose: 6 mg Documented by: Admin: 03/30/21 09:51 Dose: 6 mg Documented by: Admin: 03/29/21 08:19 Dose: 6 mg Documented by: Admin: 03/28/21 09:23 Dose: 6 mg Documented by: Admin: 03/27/21 09:23 Dose: 6 mg Documented by: Admin: 03/26/21 18:45 Dose: 6 mg Documented by: LEOPOLDO Enoxaparin Sodium (Enoxaparin 40 Mg/0.4 Ml Syringe) 40 mg SUBCUT Q24H [facility] Last Admin: 04/02/21 18:10 Dose: 40 mg Documented by: Admin: 04/01/21 17:09 Dose: 40 mg Documented by: Admin: 03/31/21 17:26 Dose: 40 mg Documented by: Admin: 03/30/21 17:00 Dose: 40 mg Documented by: Admin: 03/29/21 18:51 Dose: 40 mg Documented by: Admin: 03/28/21 17:58 Dose: 40 mg Documented by: Admin: 03/27/21 18:59 Dose: 40 mg Documented by: Admin: 03/26/21 18:45 Dose: 40 mg Documented by: LEOPOLDO Guaifenesin/Codeine Phosphate (Codeine/Guaifenesin 10-100 Mg/5 Ml Syrup 5 Ml Cup) 5 ml PO Q4H PRN PRN Reason: Cough Last Admin: 04/01/21 02:03 Dose: 5 ml Documented by: Admin: 03/30/21 21:29 Dose: 5 ml Documented by: Admin: 03/30/21 03:05 Dose: 5 ml Documented by: Admin: 03/29/21 15:50 Dose: 5 ml Documented by: Admin: 03/29/21 07:19 Dose: 5 ml Documented by: Admin: 03/29/21 00:03 Dose: 5 ml Documented by: Admin: 03/28/21 20:01 Dose: 5 ml Documented by: Admin: 03/27/21 14:16 Dose: 5 ml Documented by: LEOPOLDO Vancomycin HCl 1.25 gm/ Sodium (Chloride) 250 mls @ 166.667 mls/hr IV Q8H [facility] Last Admin: 04/03/21 13:43 Dose: 166.667 mls/hr Documented by: Infusion: 04/03/21 06:16 Dose: 166.667 mls/hr Documented by: Admin: 04/03/21 04:46 Dose: 166.667 mls/hr Documented by: Infusion: 04/02/21 23:09 Dose: 166.667 mls/hr Documented by: Admin: 04/02/21 21:39 Dose: 166.667 mls/hr Documented by: Infusion: 04/02/21 15:15 Dose: 166.667 mls/hr Documented by: Admin: 04/02/21 13:45 Dose: 166.667 mls/hr Documented by: LEE Levofloxacin (Levofloxacin 750 Mg Tab) 750 mg PO Q24H [facility] Ondansetron HCl (Ondansetron 4 Mg/2 Ml Sdv) 4 mg IVPUSH Q6H PRN PRN Reason: Nausea/Vomiting Pantoprazole Sodium (Pantoprazole 40 Mg Tab.Cr) 40 mg PO DAILY [facility] Admin: 04/03/21 08:10 Dose: 40 mg Documented by: Admin: 04/02/21 09:51 Dose: 40 mg Documented by: Admin: 04/01/21 09:53 Dose: 40 mg Documented by: Admin: 03/31/21 09:20 Dose: 40 mg Documented by: Admin: 03/30/21 09:54 Dose: 40 mg Documented by: Admin: 03/29/21 08:19 Dose: 40 mg Documented by: Admin: 03/28/21 09:23 Dose: 40 mg Documented by: Admin: 03/27/21 09:24 Dose: 40 mg Documented by: LEOPOLDO Ramipril (Ramipril 10 Mg Cap) 10 mg PO DAILY [facility] Admin: 04/03/21 08:11 Dose: 10 mg Documented by: Admin: 04/02/21 09:51 Dose: 10 mg Documented by: Admin: 04/01/21 09:57 Dose: 10 mg Documented by: Admin: 03/31/21 09:17 Dose: 10 mg Documented by: Admin: 03/30/21 09:52 Dose: 10 mg Documented by: Admin: 03/29/21 08:19 Dose: 10 mg Documented by: Admin: 03/28/21 09:24 Dose: 10 mg Documented by: Admin: 03/27/21 09:23 Dose: 10 mg Documented by: LEOPOLDO Sodium Chloride (Sodium Chloride 0.9% 10 Ml Syringe) 10 ml FLUSH ASDIRECTED PRN PRN Reason: Keep Vein Open Last Admin: 03/26/21 10:51 Dose: 10 ml Documented by: VANCMOR Sodium Chloride (Sodium Chloride 0.9% 2.5 Ml Syringe) 2.5 ml FLUSH ASDIRECTED PRN PRN Reason: Keep Vein Open Last Admin: 03/26/21 10:51 Dose: 2.5 ml Documented by: VANCMOR Vancomycin HCl (Pharmacy To Dose - Vancomycin) 1 dose .XX ASDIRECTED DUYEN Assessment/Plan Comment:: I have seen and evaluated the patient and agree with the residents note unless specified in my note I performed a history and physical exam of the patient and discussed management with resident. I have reviewed the residents note and agree with documented findings and plan unless otherwise specified in my note.
[2021-03-26] MEDS ORDERED: Potassium Chloride 20 MEQ Tab.ER PO ONE (20:00)
[2021-03-26] MEDS ORDERED: Levofloxacin/Dextrose 5%-Water 750 MG in Premix Bag 1 BAG IV SCH (21:15)
[2021-03-26] MEDS: Acetaminophen 325 MG Tab PO PRN (21:19)
[2021-03-26] MEDS: guaiFENesin/Dextromethorphan 100-10 MG/5 ML Soln 10 ML Cup PO PRN (21:23)
[2021-03-26] MEDS: Albuterol/Ipratropium 4 GM Inhalation Spray INH SCH (21:24)
[2021-03-27] MEDS: guaiFENesin/Dextromethorphan 100-10 MG/5 ML Soln 10 ML Cup PO PRN ×2 (00:29→09:24)
[2021-03-27] MEDS: Albuterol/Ipratropium 4 GM Inhalation Spray INH SCH ×6 (01:12→22:42)
[2021-03-27 07:18] LABS: BLOOD UREA NITROGEN,BUN 11 mg/dL (7.0-18.0); CARBON DIOXIDE,CO2 33.6 mmol/L (21.0-32.0); CHLORIDE,CL 102 mmol/L (98-107); GLUCOSE RANDOM 128 mg/dL (74-106); POTASSIUM,K 3.9 mmol/L (3.5-5.1); SODIUM,NA 142 mmol/L (136-145)
[2021-03-27] MEDS: Dexamethasone 4 MG Tab PO SCH (09:23)
[2021-03-27] MEDS: Pantoprazole 40 MG Tab.CR PO SCH (09:24)
[2021-03-27] MEDS: Piperacillin/Tazobactam 4.5 GM in Sodium Chloride 0.9% 100 ML IV SCH ×2 (11:07→19:04)
[2021-03-27] MEDS: VANCOmycin 1.5 GM/300 ML 1.5 GM in Premix Bag 1 BAG IV SCH ×2 (12:26→20:35)
[2021-03-27] MEDS: REMDESIVIR 100 MG in Sodium Chloride 0.9% 100 ML IV SCH (14:15)
[2021-03-27] MEDS: Codeine/guaiFENesin 10-100 MG/5 ML Syrup 5 ML Cup PO PRN (14:16)
--- NOTE | 2021-03-27 16:19 | PCM.PN ---
- General Info Date of Service: 03/27/21 Admission Dx/Problem (Free Text): Admission Diagnosis/Problem Admission Diagnosis/Problem Hypoxemia Functional Status: Reports: Tolerating Diet, Urinating - Review of Systems General: Reports: Weakness, Fatigue, Malaise Pulmonary: Reports: Shortness of Breath, Pleuritic Chest Pain, Cough, Sputum Cardiovascular: Reports: Dyspnea on Exertion Gastrointestinal: Reports: Decreased Appetite. Denies: Abdominal Pain, Constipation, Diarrhea Genitourinary: Denies: Dysuria, Frequency, Burning, Pain Musculoskeletal: Denies: Neck Pain, Shoulder Pain, Arm Pain, Hand Pain Skin: Denies: Cyanosis, Jaundice, Mottled, Pallor Neurological: Denies: Headache, Numbness, Paresthesia, Pre-Existing Deficit - Patient Data Vitals - Most Recent: Last Vital Signs Temp 36.6 C 03/27/21 15:58 Pulse 76 03/27/21 15:58 Resp 20 03/27/21 15:58 BP 151/96 H 03/27/21 15:58 Pulse Ox 90 L 03/27/21 15:58 Weight - Most Recent: 101.605 kg I&O - Last 24 Hours: Intake & Output 03/27/21 03/27/21 03/27/21 06:59 14:59 22:59 Intake Total 1850 1180 Output Total 1600 675 Balance 250 505 Lab Results Last 24 Hours: Laboratory Results - last 24 hr 03/27/21 03/27/21 Range/Units 06:20 06:20 WBC 6.64 (4.0-11.0) K/uL RBC 4.35 (4.30-5.90) M/uL Hgb 12.8 (12.0-16.0) g/dL Hct 38.1 (36.0-46.0) % MCV 87.6 (80.0-98.0) fL MCH 29.4 (27.0-32.0) pg MCHC 33.6 (31.0-37.0) g/dL RDW Std Deviation 41.4 (28.0-62.0) fl RDW Coeff of Zulma 13 (11.0-15.0) % Plt Count 273 (150-400) K/uL MPV 10.60 (7.40-12.00) fL Neut % (Auto) 92.2 H (48.0-80.0) % Lymph % (Auto) 5.0 L (16.0-40.0) % Gibson % (Auto) 2.6 (0.0-15.0) % Eos % (Auto) 0.0 (0.0-7.0) % Baso % (Auto) 0.2 (0.0-1.5) % Neut # (Auto) 6.1 H (1.4-5.7) K/uL Lymph # (Auto) 0.3 L (0.6-2.4) K/uL Gibson # (Auto) 0.2 (0.0-0.8) K/uL Eos # (Auto) 0.0 (0.0-0.7) K/uL Baso # (Auto) 0.0 (0.0-0.1) K/uL Nucleated RBC % 0.0 /100WBC Nucleated RBCs # 0 K/uL Sodium 142 (136-145) mmol/L Potassium 3.9 (3.5-5.1) mmol/L Chloride 102 (98-107) mmol/L Carbon Dioxide 33.6 H (21.0-32.0) mmol/L BUN 11 (7.0-18.0) mg/dL Creatinine 0.9 (0.6-1.0) mg/dL Est Cr Clr Drug Dosing 77.76 mL/min Estimated GFR (MDRD) > 60.0 ml/min Glucose 128 H (74-106) mg/dL Calcium 8.1 L (8.5-10.1) mg/dL Total Bilirubin 1.2 H (0.2-1.0) mg/dL AST 70 H (15-37) IU/L ALT 67 H (14-63) IU/L Alkaline Phosphatase 107 (46-116) U/L Total Protein 6.4 (6.4-8.2) g/dL Albumin 2.4 L (3.4-5.0) g/dL Globulin 4.0 (2.6-4.0) g/dL Albumin/Globulin Ratio 0.6 L (0.9-1.6) Daniel Results Last 24 Hours: Microbiology 03/26/21 11:03 Aerobic Blood Culture - Preliminary Blood - Venous - Lab Draw NO GROWTH AFTER 1 DAY Anaerobic Blood Culture - Preliminary NO GROWTH AFTER 1 DAY 03/26/21 10:39 Aerobic Blood Culture - Preliminary Blood - Venous NO GROWTH AFTER 1 DAY Anaerobic Blood Culture - Preliminary Med Orders - Current: Current Medications Acetaminophen (Acetaminophen 325 Mg Tab) 650 mg PO Q6H PRN PRN Reason: Pain/Fever Last Admin: 03/26/21 21:19 Dose: 650 mg Documented by: Albuterol/Ipratropium (Albuterol/Ipratropium 4 Gm Inhalation [place]) 0 gm INH Q4HRRT [facility] Last Admin: 03/27/21 14:15 Dose: 1 puff Documented by: Dexamethasone (Dexamethasone 4 Mg Tab) 6 mg PO DAILY [facility] Last Admin: 03/27/21 09:23 Dose: 6 mg Documented by: Enoxaparin Sodium (Enoxaparin 40 Mg/0.4 Ml Syringe) 40 mg SUBCUT Q24H [facility] Last Admin: 03/26/21 18:45 Dose: 40 mg Documented by: Guaifenesin/Codeine Phosphate (Codeine/Guaifenesin 10-100 Mg/5 Ml Syrup 5 Ml Cup) 5 ml PO Q4H PRN PRN Reason: Cough Last Admin: 03/27/21 14:16 Dose: 5 ml Documented by: Remdesivir 100 mg/ Sodium (Chloride) 100 mls @ 100 mls/hr IV Q24H [facility] Stop: 03/30/21 14:29 Last Admin: 03/27/21 14:15 Dose: 100 mls/hr Documented by: Piperacillin Sod/Tazobactam (Sod 4.5 gm/ Sodium Chloride) 100 mls @ 100 mls/hr IV Q8H [facility] Last Admin: 03/27/21 11:07 Dose: 100 mls/hr Documented by: Vancomycin HCl 1.5 gm/ Premix 300 mls @ 200 mls/hr IV Q8H [facility] Last Admin: 03/27/21 12:26 Dose: 200 mls/hr Documented by: Ondansetron HCl (Ondansetron 4 Mg/2 Ml Sdv) 4 mg IVPUSH Q6H PRN PRN Reason: Nausea/Vomiting Pantoprazole Sodium (Pantoprazole 40 Mg Tab.Cr) 40 mg PO DAILY [facility] Last Admin: 03/27/21 09:24 Dose: 40 mg Documented by: Ramipril (Ramipril 10 Mg Cap) 10 mg PO DAILY [facility] Last Admin: 03/27/21 09:23 Dose: 10 mg Documented by: Sodium Chloride (Sodium Chloride 0.9% 10 Ml Syringe) 10 ml FLUSH ASDIRECTED PRN PRN Reason: Keep Vein Open Last Admin: 03/26/21 10:51 Dose: 10 ml Documented by: Sodium Chloride (Sodium Chloride 0.9% 2.5 Ml Syringe) 2.5 ml FLUSH ASDIRECTED PRN PRN Reason: Keep Vein Open Last Admin: 03/26/21 10:51 Dose: 2.5 ml Documented by: Vancomycin HCl (Pharmacy To Dose - Vancomycin) 1 dose .XX ASDIRECTED [facility] Discontinued Medications Acetaminophen (Acetaminophen 325 Mg Tab) 650 mg PO NOW ONE Stop: 03/26/21 10:45 Last Admin: 03/26/21 10:50 Dose: 650 mg Documented by: Albuterol/Ipratropium (Albuterol/Ipratropium 4 Gm Inhalation [place]) 1 gm INH Q4HRRT PRN PRN Reason: Dyspnea Guaifenesin/Dextromethorphan (Guaifenesin/Dextromethorphan 100-10 Mg/5 Ml Soln 10 Ml Cup) 10 ml PO Q4H PRN PRN Reason: Cough Last Admin: 03/27/21 09:24 Dose: 10 ml Documented by: Sodium Chloride (Normal Saline) 1,000 mls @ 999 mls/hr IV .BOLUS ONE Stop: 03/26/21 11:44 Last Admin: 03/26/21 10:51 Dose: 999 mls/hr Documented by: Remdesivir 200 mg/ Sodium (Chloride) 250 mls @ 250 mls/hr IV ONETIME ONE Stop: 03/26/21 13:29 Last Admin: 03/26/21 12:44 Dose: 250 mls/hr Documented by: Levofloxacin/Dextrose 750 mg/ (Premix) 150 mls @ 100 mls/hr IV Q24H [facility] Last Admin: 03/26/21 22:45 Dose: 100 mls/hr Documented by: Ketorolac Tromethamine (Ketorolac 30 Mg/Ml Sdv) 30 mg IVPUSH ONETIME ONE Stop: 03/26/21 10:45 Last Admin: 03/26/21 10:50 Dose: 30 mg Documented by: Ondansetron HCl (Ondansetron 4 Mg/2 Ml Sdv) 4 mg IVPUSH ONETIME ONE Stop: 03/26/21 10:45 Last Admin: 03/26/21 10:50 Dose: 4 mg Documented by: Potassium Chloride (Potassium Chloride 20 Meq Tab.Er) 40 meq PO ONETIME ONE Stop: 03/26/21 20:01 Last Admin: 03/26/21 21:20 Dose: 40 meq Documented by: Ramipril (Ramipril 10 Mg Cap) 10 mg PO ONETIME ONE Stop: 03/26/21 21:16 Last Admin: 03/26/21 21:20 Dose: 10 mg Documented by: - Exam Quality Assessment: Supplemental Oxygen General: Alert, Mild Distress Lungs: Decreased Breath Sounds, Crackles, Rales Cardiovascular: Regular Rate, Regular Rhythm GI/Abdominal Exam: Normal Bowel Sounds, Soft, Non-Tender Extremities: Normal Inspection, Normal Range of Motion - Patient Data Lab Results Last 24 hrs: Laboratory Results - last 24 hr 03/27/21 03/27/21 Range/Units 06:20 06:20 WBC 6.64 (4.0-11.0) K/uL RBC 4.35 (4.30-5.90) M/uL Hgb 12.8 (12.0-16.0) g/dL Hct 38.1 (36.0-46.0) % MCV 87.6 (80.0-98.0) fL MCH 29.4 (27.0-32.0) pg MCHC 33.6 (31.0-37.0) g/dL RDW Std Deviation 41.4 (28.0-62.0) fl RDW Coeff of Zulma 13 (11.0-15.0) % Plt Count 273 (150-400) K/uL MPV 10.60 (7.40-12.00) fL Neut % (Auto) 92.2 H (48.0-80.0) % Lymph % (Auto) 5.0 L (16.0-40.0) % Gibson % (Auto) 2.6 (0.0-15.0) % Eos % (Auto) 0.0 (0.0-7.0) % Baso % (Auto) 0.2 (0.0-1.5) % Neut # (Auto) 6.1 H (1.4-5.7) K/uL Lymph # (Auto) 0.3 L (0.6-2.4) K/uL Gibson # (Auto) 0.2 (0.0-0.8) K/uL Eos # (Auto) 0.0 (0.0-0.7) K/uL Baso # (Auto) 0.0 (0.0-0.1) K/uL Nucleated RBC % 0.0 /100WBC Nucleated RBCs # 0 K/uL Sodium 142 (136-145) mmol/L Potassium 3.9 (3.5-5.1) mmol/L Chloride 102 (98-107) mmol/L Carbon Dioxide 33.6 H (21.0-32.0) mmol/L BUN 11 (7.0-18.0) mg/dL Creatinine 0.9 (0.6-1.0) mg/dL Est Cr Clr Drug Dosing 77.76 mL/min Estimated GFR (MDRD) > 60.0 ml/min Glucose 128 H (74-106) mg/dL Calcium 8.1 L (8.5-10.1) mg/dL Total Bilirubin 1.2 H (0.2-1.0) mg/dL AST 70 H (15-37) IU/L ALT 67 H (14-63) IU/L Alkaline Phosphatase 107 (46-116) U/L Total Protein 6.4 (6.4-8.2) g/dL Albumin 2.4 L (3.4-5.0) g/dL Globulin 4.0 (2.6-4.0) g/dL Albumin/Globulin Ratio 0.6 L (0.9-1.6) Result Diagrams: 03/27/21 06:20 03/27/21 06:20 Daniel Results Last 24 hrs: Microbiology 03/26/21 11:03 Aerobic Blood Culture - Preliminary Blood - Venous - Lab Draw NO GROWTH AFTER 1 DAY Anaerobic Blood Culture - Preliminary NO GROWTH AFTER 1 DAY 03/26/21 10:39 Aerobic Blood Culture - Preliminary Blood - Venous NO GROWTH AFTER 1 DAY Anaerobic Blood Culture - Preliminary Sepsis Event Note - Evaluation Sepsis Screening Result: No Definite Risk - Focused Exam Vital Signs: Vital Signs Temp Pulse Resp BP BP BP Pulse Ox 03/27/21 15:58 36.6 C 76 20 151/96 H 90 L 03/27/21 12:00 36.7 C 82 18 133/70 89 L 03/27/21 09:23 153/87 H 03/27/21 08:00 36.7 C 88 20 153/87 H 89 L - Problem List & Annotations (1) Acute respiratory failure with hypoxia SNOMED Code(s): 47804883, 881640002 Code(s): J96.01 - ACUTE RESPIRATORY FAILURE WITH HYPOXIA Status: Acute Current Visit: Yes (2) Hypertension SNOMED Code(s): 45137154 Code(s): I10 - ESSENTIAL (PRIMARY) HYPERTENSION Status: Acute Current Visit: Yes (3) Hypoxemia SNOMED Code(s): 977244811 Code(s): R09.02 - HYPOXEMIA Status: Acute Current Visit: Yes (4) Pneumonia due to COVID-19 virus SNOMED Code(s): 120544981055062317 Code(s): U07.1 - COVID-19; J12.82 - PNEUMONIA DUE TO CORONAVIRUS DISEASE 2019 Status: Acute Current Visit: Yes - Problem List Review Problem List Initiated/Reviewed/Updated: Yes - My Orders Last 24 Hours: My Active Orders 03/26/21 16:18 Telemetry Monitoring [Cardiac Monitoring] [RC] Q8H 03/26/21 20:54 Acetaminophen [TylenoL] 650 mg PO Q6H PRN 03/26/21 22:00 Albuterol/Ipratropium [Combivent Respimat] 0 gm INH Q4HRRT 03/27/21 10:30 Pharmacy to Dose - Vancomycin 1 dose .XX ASDIRECTED 03/27/21 11:00 Piperacillin/Tazobactam [Piperacil-Tazobact] 4.5 gm Sodium Chloride 0.9% [Normal Saline] 100 ml IV Q8H 03/27/21 12:00 VANCOmycin 1.5 GM/300 ML 1.5 gm Premix Bag 1 bag IV Q8H 03/27/21 12:30 Codeine/guaiFENesin [Robitussin AC] 5 ml PO Q4H PRN - Plan Plan:: Admit the patient to the medical floor, vitals per unit routine, activity up ad ruthann., DVT prophylaxis with enoxaparin 40 mg subcutaneously, DVT prophylaxis with pantoprazole 40 mg per oral route once a day, regular diet 1. Acute hypoxic respiratory failure secondary to COVID-19 pneumonia -The patient was given 1 dose of remdesivir 200 mg per IV route in the ER, will continue with remdesivir 100 mg per IV route starting 24 hours after first dose, 4 bags to be given -We will start the patient on dexamethasone 6 mg per oral route once a day -For shortness of breath the patient will be given Combivent therapy -Incentive spirometry in the prone position will be encouraged -Robitussin DM will be given for cough as needed -Oxygen will be supplied as needed, patient is currently on heated high flow, with O2 flow rate of 45, and FiO2 of 75, currently saturating at 94% -We will check CRP, possible candidate for baricitinib 2. Hypertension -We will continue with the patient's home dose of ramipril to control her blood pressure, will hold if hypotensive 3. Hypokalemia -The patient has been given 1 dose of potassium chloride 40 mEq per oral route, a.m. CMP [id number] bacteremia: Possible contaminant? Awaiting culture and sensitivity, will start patient on broad-spectrum antibiotics for now, repeat bl ood cultures in a.m.
[2021-03-27] MEDS: Enoxaparin 40 MG/0.4 ML Syringe SUBCUT SCH (18:59)
[2021-03-28] MEDS: Albuterol/Ipratropium 4 GM Inhalation Spray INH SCH ×6 (03:21→23:13)
[2021-03-28] MEDS: Piperacillin/Tazobactam 4.5 GM in Sodium Chloride 0.9% 100 ML IV SCH ×3 (03:32→18:00)
[2021-03-28] MEDS: VANCOmycin 1.5 GM/300 ML 1.5 GM in Premix Bag 1 BAG IV SCH ×3 (05:01→19:47)
[2021-03-28 06:31] LABS: BLOOD UREA NITROGEN,BUN 17 mg/dL (7.0-18.0); CARBON DIOXIDE,CO2 30.3 mmol/L (21.0-32.0); CHLORIDE,CL 104 mmol/L (98-107); GLUCOSE RANDOM 129 mg/dL (74-106); POTASSIUM,K 3.7 mmol/L (3.5-5.1); SODIUM,NA 145 mmol/L (136-145)
[2021-03-28] MEDS: Pantoprazole 40 MG Tab.CR PO SCH (09:23)
[2021-03-28] MEDS: Dexamethasone 4 MG Tab PO SCH (09:23)
--- NOTE | 2021-03-28 10:43 | PCM.PN ---
<Elen Cortes - Last Filed: 03/28/21 10:49> - General Info Date of Service: 03/28/21 Subjective Update: The patient is a 35-year-old female, on day 3 of service, with a significant past medical history of hypertension, who was admitted to the medical floor today due to acute respiratory failure secondary to COVID-19 pneumonia. The patient is currently on heated high flow, O2 flow rate of 55, and FiO2 of 60. She is saturating at 86%. On interview today she complains that the apparatus is causing burning in her nose and that she is extremely uncomfortable. She would like it removed. It was explained to her that the HHF was necessary to keep her oxygen up to saturate all the tissues within her body. Discussion with her nurse was initiated about this complaint, efforts will be made to try to have her at a level which is comfortable and subsequently keeps her oxygen at optimal levels. On further interview the patient admits that her shortness of breath has improved but she is still suffering from cough. She denies any fevers or issues with urination and/or defecation. She has no other complaints at this time. - Review of Systems General: Denies: Fever, Fatigue, Chills HEENT: Reports: Other (Complaining of bilateral nostril irritation/burning with heated high flow apparatus). Denies: Headaches, Sore Throat Pulmonary: Reports: Shortness of Breath, Cough Cardiovascular: Denies: Chest Pain, Palpitations Gastrointestinal: Denies: Abdominal Pain, Diarrhea, Nausea, Vomiting Genitourinary: Denies: Dysuria - Patient Data Vitals - Most Recent: Last Vital Signs Temp 97.6 F 03/28/21 08:00 Pulse 72 03/28/21 08:00 Resp 32 H 03/28/21 08:00 BP 130/74 03/28/21 09:24 Pulse Ox 94 L 03/28/21 08:00 Weight - Most Recent: 101.605 kg I&O - Last 24 Hours: Intake & Output 03/27/21 03/28/21 03/28/21 22:59 06:59 14:59 Intake Total 1530 120 Output Total 675 500 Balance 855 -380 Lab Results Last 24 Hours: Laboratory Results - last 24 hr 03/27/21 03/28/21 03/28/21 Range/Units 06:20 05:30 05:30 WBC 5.05 (4.0-11.0) K/uL RBC 4.13 L (4.30-5.90) M/uL Hgb 11.9 L (12.0-16.0) g/dL Hct 36.0 (36.0-46.0) % MCV 87.2 (80.0-98.0) fL MCH 28.8 (27.0-32.0) pg MCHC 33.1 (31.0-37.0) g/dL RDW Std Deviation 40.9 (28.0-62.0) fl RDW Coeff of Zulma 13 (11.0-15.0) % Plt Count 317 (150-400) K/uL MPV 10.10 (7.40-12.00) fL Neut % (Auto) 83.0 H (48.0-80.0) % Lymph % (Auto) 8.7 L (16.0-40.0) % [place] % (Auto) 8.1 (0.0-15.0) % Eos % (Auto) 0.0 (0.0-7.0) % Baso % (Auto) 0.2 (0.0-1.5) % Neut # (Auto) 4.2 (1.4-5.7) K/uL Lymph # (Auto) 0.4 L (0.6-2.4) K/uL [place] # (Auto) 0.4 (0.0-0.8) K/uL Eos # (Auto) 0.0 (0.0-0.7) K/uL Baso # (Auto) 0.0 (0.0-0.1) K/uL Nucleated RBC % 0.0 /100WBC Nucleated RBCs # 0 K/uL Sodium 145 (136-145) mmol/L Potassium 3.7 (3.5-5.1) mmol/L Chloride 104 (98-107) mmol/L Carbon Dioxide 30.3 (21.0-32.0) mmol/L BUN 17 (7.0-18.0) mg/dL Creatinine 0.9 (0.6-1.0) mg/dL Est Cr Clr Drug Dosing 77.76 mL/min Estimated GFR (MDRD) > 60.0 ml/min Glucose 129 H (74-106) mg/dL Calcium 7.7 L (8.5-10.1) mg/dL Total Bilirubin 0.7 (0.2-1.0) mg/dL AST 42 H (15-37) IU/L ALT 54 (14-63) IU/L Alkaline Phosphatase 85 (46-116) U/L C-Reactive Protein 32.30 H (0.00-0.90) mg/dL Total Protein 5.8 L (6.4-8.2) g/dL Albumin 2.1 L (3.4-5.0) g/dL Globulin 3.7 (2.6-4.0) g/dL Albumin/Globulin Ratio 0.6 L (0.9-1.6) Daniel Results Last 24 Hours: Microbiology 03/26/21 11:03 Aerobic Blood Culture - Preliminary Blood - Venous - Lab Draw NO GROWTH AFTER 1 DAY Anaerobic Blood Culture - Preliminary NO GROWTH AFTER 1 DAY 03/26/21 10:39 Aerobic Blood Culture - Preliminary Blood - Venous NO GROWTH AFTER 1 DAY Anaerobic Blood Culture - Preliminary Med Orders - Current: Current Medications Acetaminophen (Acetaminophen 325 Mg Tab) 650 mg PO Q6H PRN PRN Reason: Pain/Fever Last Admin: 03/26/21 21:19 Dose: 650 mg Documented by: Albuterol/Ipratropium (Albuterol/Ipratropium 4 Gm Inhalation [place]) 0 gm INH Q4HRRT [facility] Last Admin: 03/28/21 09:29 Dose: 1 puff Documented by: Dexamethasone (Dexamethasone 4 Mg Tab) 6 mg PO DAILY [facility] Last Admin: 03/28/21 09:23 Dose: 6 mg Documented by: Enoxaparin Sodium (Enoxaparin 40 Mg/0.4 Ml Syringe) 40 mg SUBCUT Q24H [facility] Last Admin: 03/27/21 18:59 Dose: 40 mg Documented by: Guaifenesin/Codeine Phosphate (Codeine/Guaifenesin 10-100 Mg/5 Ml Syrup 5 Ml Cup) 5 ml PO Q4H PRN PRN Reason: Cough Last Admin: 03/27/21 14:16 Dose: 5 ml Documented by: Remdesivir 100 mg/ Sodium (Chloride) 100 mls @ 100 mls/hr IV Q24H [facility] Stop: 03/30/21 14:29 Last Admin: 03/27/21 14:15 Dose: 100 mls/hr Documented by: Piperacillin Sod/Tazobactam (Sod 4.5 gm/ Sodium Chloride) 100 mls @ 100 mls/hr IV Q8H [facility] Last Admin: 03/28/21 03:32 Dose: 100 mls/hr Documented by: Vancomycin HCl 1.5 gm/ Premix 300 mls @ 200 mls/hr IV Q8H [facility] Last Admin: 03/28/21 05:01 Dose: 200 mls/hr Documented by: Ondansetron HCl (Ondansetron 4 Mg/2 Ml Sdv) 4 mg IVPUSH Q6H PRN PRN Reason: Nausea/Vomiting Pantoprazole Sodium (Pantoprazole 40 Mg Tab.Cr) 40 mg PO DAILY [facility] Last Admin: 03/28/21 09:23 Dose: 40 mg Documented by: Ramipril (Ramipril 10 Mg Cap) 10 mg PO DAILY [facility] Last Admin: 03/28/21 09:24 Dose: 10 mg Documented by: Sodium Chloride (Sodium Chloride 0.9% 10 Ml Syringe) 10 ml FLUSH ASDIRECTED PRN PRN Reason: Keep Vein Open Last Admin: 03/26/21 10:51 Dose: 10 ml Documented by: Sodium Chloride (Sodium Chloride 0.9% 2.5 Ml Syringe) 2.5 ml FLUSH ASDIRECTED PRN PRN Reason: Keep Vein Open Last Admin: 03/26/21 10:51 Dose: 2.5 ml Documented by: Vancomycin HCl (Pharmacy To Dose - Vancomycin) 1 dose .XX ASDIRECTED [facility] Discontinued Medications Acetaminophen (Acetaminophen 325 Mg Tab) 650 mg PO NOW ONE Stop: 03/26/21 10:45 Last Admin: 03/26/21 10:50 Dose: 650 mg Documented by: Albuterol/Ipratropium (Albuterol/Ipratropium 4 Gm Inhalation [place]) 1 gm INH Q4HRRT PRN PRN Reason: Dyspnea Guaifenesin/Dextromethorphan (Guaifenesin/Dextromethorphan 100-10 Mg/5 Ml Soln 10 Ml Cup) 10 ml PO Q4H PRN PRN Reason: Cough Last Admin: 03/27/21 09:24 Dose: 10 ml Documented by: Sodium Chloride (Normal Saline) 1,000 mls @ 999 mls/hr IV .BOLUS ONE Stop: 03/26/21 11:44 Last Admin: 03/26/21 10:51 Dose: 999 mls/hr Documented by: Remdesivir 200 mg/ Sodium (Chloride) 250 mls @ 250 mls/hr IV ONETIME ONE Stop: 03/26/21 13:29 Last Admin: 03/26/21 12:44 Dose: 250 mls/hr Documented by: Levofloxacin/Dextrose 750 mg/ (Premix) 150 mls @ 100 mls/hr IV Q24H [facility] Last Admin: 03/26/21 22:45 Dose: 100 mls/hr Documented by: Ketorolac Tromethamine (Ketorolac 30 Mg/Ml Sdv) 30 mg IVPUSH ONETIME ONE Stop: 03/26/21 10:45 Last Admin: 03/26/21 10:50 Dose: 30 mg Documented by: Ondansetron HCl (Ondansetron 4 Mg/2 Ml Sdv) 4 mg IVPUSH ONETIME ONE Stop: 03/26/21 10:45 Last Admin: 03/26/21 10:50 Dose: 4 mg Documented by: Potassium Chloride (Potassium Chloride 20 Meq Tab.Er) 40 meq PO ONETIME ONE Stop: 03/26/21 20:01 Last Admin: 03/26/21 21:20 Dose: 40 meq Documented by: Ramipril (Ramipril 10 Mg Cap) 10 mg PO ONETIME ONE Stop: 03/26/21 21:16 Last Admin: 03/26/21 21:20 Dose: 10 mg Documented by: - Exam General: Alert, Oriented, Mild Distress HEENT: Other (Dry mucous membranes) Neck: Trachea Midline Lungs: Other (Tachypnea) Cardiovascular: Regular Rate, Regular Rhythm, No Murmurs GI/Abdominal Exam: Normal Bowel Sounds, Soft, Non-Tender - Patient Data Lab Results Last 24 hrs: Laboratory Results - last 24 hr 03/27/21 03/28/21 03/28/21 Range/Units 06:20 05:30 05:30 WBC 5.05 (4.0-11.0) K/uL RBC 4.13 L (4.30-5.90) M/uL Hgb 11.9 L (12.0-16.0) g/dL Hct 36.0 (36.0-46.0) % MCV 87.2 (80.0-98.0) fL MCH 28.8 (27.0-32.0) pg MCHC 33.1 (31.0-37.0) g/dL RDW Std Deviation 40.9 (28.0-62.0) fl RDW Coeff of [place]ma 13 (11.0-15.0) % Plt Count 317 (150-400) K/uL MPV 10.10 (7.40-12.00) fL Neut % (Auto) 83.0 H (48.0-80.0) % Lymph % (Auto) 8.7 L (16.0-40.0) % [place] % (Auto) 8.1 (0.0-15.0) % Eos % (Auto) 0.0 (0.0-7.0) % Baso % (Auto) 0.2 (0.0-1.5) % Neut # (Auto) 4.2 (1.4-5.7) K/uL Lymph # (Auto) 0.4 L (0.6-2.4) K/uL [place] # (Auto) 0.4 (0.0-0.8) K/uL Eos # (Auto) 0.0 (0.0-0.7) K/uL Baso # (Auto) 0.0 (0.0-0.1) K/uL Nucleated RBC % 0.0 /100WBC Nucleated RBCs # 0 K/uL Sodium 145 (136-145) mmol/L Potassium 3.7 (3.5-5.1) mmol/L Chloride 104 (98-107) mmol/L Carbon Dioxide 30.3 (21.0-32.0) mmol/L BUN 17 (7.0-18.0) mg/dL Creatinine 0.9 (0.6-1.0) mg/dL Est Cr Clr Drug Dosing 77.76 mL/min Estimated GFR (MDRD) > 60.0 ml/min Glucose 129 H (74-106) mg/dL Calcium 7.7 L (8.5-10.1) mg/dL Total Bilirubin 0.7 (0.2-1.0) mg/dL AST 42 H (15-37) IU/L ALT 54 (14-63) IU/L Alkaline Phosphatase 85 (46-116) U/L C-Reactive Protein 32.30 H (0.00-0.90) mg/dL Total Protein 5.8 L (6.4-8.2) g/dL Albumin 2.1 L (3.4-5.0) g/dL Globulin 3.7 (2.6-4.0) g/dL Albumin/Globulin Ratio 0.6 L (0.9-1.6) Result Diagrams: 03/28/21 05:30 03/28/21 05:30 Daniel Results Last 24 hrs: Microbiology 03/26/21 11:03 Aerobic Blood Culture - Preliminary Blood - Venous - Lab Draw NO GROWTH AFTER 1 DAY Anaerobic Blood Culture - Preliminary NO GROWTH AFTER 1 DAY 03/26/21 10:39 Aerobic Blood Culture - Preliminary Blood - Venous NO GROWTH AFTER 1 DAY Anaerobic Blood Culture - Preliminary Sepsis Event Note - Evaluation Sepsis Screening Result: No Definite Risk - Focused Exam Vital Signs: Vital Signs Temp Pulse Resp BP BP BP Pulse Ox 03/28/21 09:24 130/74 03/28/21 08:00 97.6 F 72 32 H 130/74 94 L 03/28/21 04:18 97.4 F 74 21 H 137/80 76 L 03/27/21 23:51 98 F 73 20 146/87 H 89 L - Problem List & Annotations (1) Hypertension SNOMED Code(s): 10972659 Code(s): I10 - ESSENTIAL (PRIMARY) HYPERTENSION Status: Acute Current Visit: Yes (2) Pneumonia due to COVID-19 virus SNOMED Code(s): 287971504777472821 Code(s): U07.1 - COVID-19; J12.82 - PNEUMONIA DUE TO CORONAVIRUS DISEASE 2019 Status: Acute Current Visit: Yes (3) COVID-19 SNOMED Code(s): 992567848 Code(s): U07.1 - COVID-19 Status: Acute Current Visit: No (4) Hypoxia SNOMED Code(s): 413943590 Code(s): R09.02 - HYPOXEMIA Status: Acute Current Visit: No (5) Bacteremia SNOMED Code(s): 6498065 Code(s): R78.81 - BACTEREMIA Status: Acute Current Visit: Yes - Problem List Review Problem List Initiated/Reviewed/Updated: Yes - My Orders Last 24 Hours: My Active Orders 03/27/21 13:30 Remdesivir 100 mg Sodium Chloride 0.9% [Normal Saline] 100 ml IV Q24H 03/29/21 05:11 CBC WITH AUTO DIFF [HEME] AM CMP [COMPREHENSIVE METABOLIC PN,CMP] [CHEM] AM 03/30/21 05:11 CBC WITH AUTO DIFF [HEME] AM CMP [COMPREHENSIVE METABOLIC PN,CMP] [CHEM] AM - Plan Plan:: 1. Acute hypoxic respiratory failure secondary to COVID-19 pneumonia -Continue the patient on remdesivir 100 mg per IV route -Continue the patient on dexamethasone 6 mg per oral route once a day -For shortness of breath continue the patient on Combivent therapy -Incentive spirometry in the prone position is encouraged -For cough continue the patient on Robitussin DM as needed -Continue to supply oxygen for the patient, wean as appropriate 2. Lerhsjvgop-snyd-djdvvioe cocci in clumps -The patient has been started on Zosyn 4.5 g per IV route every 8 hours and Vancomycin 1.5 g per IV route every 8 hours -Repeat blood cultures done this morning, awaiting results to guide further management 3. Hypertension -We will continue with the patient's home dose of ramipril to control blood pressure <Chris Rivas - Last Filed: 04/03/21 15:53> - Patient Data Vitals - Most Recent: Last Vital Signs Temp 36.4 C 04/03/21 13:00 Pulse 81 03/31/21 09:00 Resp 39 H 04/03/21 14:00 BP 127/70 04/03/21 14:00 Pulse Ox 89 L 04/03/21 14:00 I&O - Last 24 Hours: Intake & Output 04/03/21 04/03/21 04/03/21 06:59 14:59 22:59 Intake Total 1050 Output Total 700 Balance 350 Lab Results Last 24 Hours: Laboratory Results - last 24 hr 04/03/21 04/03/21 04/03/21 Range/Units 05:15 05:15 13:05 WBC 7.25 (4.0-11.0) K/uL RBC 4.04 L (4.30-5.90) M/uL Hgb 11.7 L (12.0-16.0) g/dL Hct 35.7 L (36.0-46.0) % MCV 88.4 (80.0-98.0) fL MCH 29.0 (27.0-32.0) pg MCHC 32.8 (31.0-37.0) g/dL RDW Std Deviation 41.7 (28.0-62.0) fl RDW Coeff of [place] 13 (11.0-15.0) % Plt Count 632 H (150-400) K/uL MPV 10.70 (7.40-12.00) fL Neut % (Auto) 82.2 H (48.0-80.0) % Lymph % (Auto) 9.5 L (16.0-40.0) % [place] % (Auto) 6.6 (0.0-15.0) % Eos % (Auto) 1.7 (0.0-7.0) % Baso % (Auto) 0.0 (0.0-1.5) % Neut # (Auto) 6.0 H (1.4-5.7) K/uL Lymph # (Auto) 0.7 (0.6-2.4) K/uL [place] # (Auto) 0.5 (0.0-0.8) K/uL Eos # (Auto) 0.1 (0.0-0.7) K/uL Baso # (Auto) 0.0 (0.0-0.1) K/uL Nucleated RBC % 0.0 /100WBC Nucleated RBCs # 0 K/uL Sodium 142 (136-145) mmol/L Potassium 4.1 (3.5-5.1) mmol/L Chloride 105 (98-107) mmol/L Carbon Dioxide 27.7 (21.0-32.0) mmol/L BUN 20 H (7.0-18.0) mg/dL Creatinine 0.9 (0.6-1.0) mg/dL Est Cr Clr Drug Dosing 77.76 mL/min Estimated GFR (MDRD) > 60.0 ml/min Glucose 84 (74-106) mg/dL Calcium 8.1 L (8.5-10.1) mg/dL Total Bilirubin 0.8 (0.2-1.0) mg/dL AST 23 (15-37) IU/L ALT 68 H (14-63) IU/L Alkaline Phosphatase 70 (46-116) U/L Total Protein 5.9 L (6.4-8.2) g/dL Albumin 2.1 L (3.4-5.0) g/dL Globulin 3.8 (2.6-4.0) g/dL Albumin/Globulin Ratio 0.6 L (0.9-1.6) Vancomycin Trough 18.6 H (5.0-10.0) ug/mL Med Orders - Current: Current Medications Acetaminophen (Acetaminophen 325 Mg Tab) 650 mg PO Q6H PRN PRN Reason: Pain/Fever Last Admin: 04/02/21 09:51 Dose: 650 mg Documented by: Albuterol/Ipratropium (Albuterol/Ipratropium 4 Gm Inhalation [place]) 0 gm INH Q4HRRT [facility] Last Admin: 04/03/21 14:17 Dose: 1 puff Documented by: Baricitinib (Baricitinib 2 Mg Tab) 4 mg PO DAILY [facility] Last Admin: 04/03/21 08:10 Dose: 4 mg Documented by: Dexamethasone (Dexamethasone 4 Mg Tab) 6 mg PO DAILY [facility] Last Admin: 04/03/21 08:11 Dose: 6 mg Documented by: Enoxaparin Sodium (Enoxaparin 40 Mg/0.4 Ml Syringe) 40 mg SUBCUT Q24H [facility] Last Admin: 04/02/21 18:10 Dose: 40 mg Documented by: Guaifenesin/Codeine Phosphate (Codeine/Guaifenesin 10-100 Mg/5 Ml Syrup 5 Ml Cu p) 5 ml PO Q4H PRN PRN Reason: Cough Last Admin: 04/01/21 02:03 Dose: 5 ml Documented by: Vancomycin HCl 1.25 gm/ Sodium (Chloride) 250 mls @ 166.667 mls/hr IV Q8H [facility] Last Admin: 04/03/21 13:43 Dose: 166.667 mls/hr Documented by: Levofloxacin (Levofloxacin 750 Mg Tab) 750 mg PO Q24H [facility] Last Admin: 04/03/21 15:50 Dose: 750 mg Documented by: Ondansetron HCl (Ondansetron 4 Mg/2 Ml Sdv) 4 mg IVPUSH Q6H PRN PRN Reason: Nausea/Vomiting Pantoprazole Sodium (Pantoprazole 40 Mg Tab.Cr) 40 mg PO DAILY [facility] Last Admin: 04/03/21 08:10 Dose: 40 mg Documented by: Ramipril (Ramipril 10 Mg Cap) 10 mg PO DAILY [facility] Last Admin: 04/03/21 08:11 Dose: 10 mg Documented by: Sodium Chloride (Sodium Chloride 0.9% 10 Ml Syringe) 10 ml FLUSH ASDIRECTED PRN PRN Reason: Keep Vein Open Last Admin: 03/26/21 10:51 Dose: 10 ml Documented by: Sodium Chloride (Sodium Chloride 0.9% 2.5 Ml Syringe) 2.5 ml FLUSH ASDIRECTED PRN PRN Reason: Keep Vein Open Last Admin: 03/26/21 10:51 Dose: 2.5 ml Documented by: Vancomycin HCl (Pharmacy To Dose - Vancomycin) 1 dose .XX ASDIRECTED [facility] Discontinued Medications Acetaminophen (Acetaminophen 325 Mg Tab) 650 mg PO NOW ONE Stop: 03/26/21 10:45 Last Admin: 03/26/21 10:50 Dose: 650 mg Documented by: Albuterol/Ipratropium (Albuterol/Ipratropium 4 Gm Inhalation [place]) 1 gm INH Q4HRRT PRN PRN Reason: Dyspnea Baricitinib (Baricitinib 2 Mg Tab) 4 mg PO DAILY [facility] Last Admin: 03/29/21 08:19 Dose: 4 mg Documented by: Guaifenesin/Dextromethorphan (Guaifenesin/Dextromethorphan 100-10 Mg/5 Ml Soln 10 Ml Cup) 10 ml PO Q4H PRN PRN Reason: Cough Last Admin: 03/27/21 09:24 Dose: 10 ml Documented by: Sodium Chloride (Normal Saline) 1,000 mls @ 999 mls/hr IV .BOLUS ONE Stop: 03/26/21 11:44 Last Admin: 03/26/21 10:51 Dose: 999 mls/hr Documented by: Remdesivir 200 mg/ Sodium (Chloride) 250 mls @ 250 mls/hr IV ONETIME ONE Stop: 03/26/21 13:29 Last Admin: 03/26/21 12:44 Dose: 250 mls/hr Documented by: Remdesivir 100 mg/ Sodium (Chloride) 100 mls @ 100 mls/hr IV Q24H [facility] Stop: 03/30/21 14:29 Last Admin: 03/30/21 12:35 Dose: 100 mls/hr Documented by: Levofloxacin/Dextrose 750 mg/ (Premix) 150 mls @ 100 mls/hr IV Q24H [facility] Last Admin: 03/26/21 22:45 Dose: 100 mls/hr Documented by: Piperacillin Sod/Tazobactam (Sod 4.5 gm/ Sodium Chloride) 100 mls @ 100 mls/hr IV Q8H [facility] Last Admin: 04/03/21 10:54 Dose: 100 mls/hr Documented by: Vancomycin HCl 1.5 gm/ Premix 300 mls @ 200 mls/hr IV Q8H [facility] Last Admin: 03/29/21 05:02 Dose: 200 mls/hr Documented by: Vancomycin HCl 1.5 gm/ Premix 300 mls @ 200 mls/hr IV Q8H [facility] Last Admin: 04/02/21 13:42 Dose: Not Given Documented by: Ketorolac Tromethamine (Ketorolac 30 Mg/Ml Sdv) 30 mg IVPUSH ONETIME ONE Stop: 03/26/21 10:45 Last Admin: 03/26/21 10:50 Dose: 30 mg Documented by: Ondansetron HCl (Ondansetron 4 Mg/2 Ml Sdv) 4 mg IVPUSH ONETIME ONE Stop: 03/26/21 10:45 Last Admin: 03/26/21 10:50 Dose: 4 mg Documented by: Potassium Chloride (Potassium Chloride 20 Meq Tab.Er) 40 meq PO ONETIME ONE Stop: 03/26/21 20:01 Last Admin: 03/26/21 21:20 Dose: 40 meq Documented by: Ramipril (Ramipril 10 Mg Cap) 10 mg PO ONETIME ONE Stop: 03/26/21 21:16 Last Admin: 03/26/21 21:20 Dose: 10 mg Documented by: - Patient Data Lab Results Last 24 hrs: Laboratory Results - last 24 hr 04/03/21 04/03/21 04/03/21 Range/Units 05:15 05:15 13:05 WBC 7.25 (4.0-11.0) K/uL RBC 4.04 L (4.30-5.90) M/uL Hgb 11.7 L (12.0-16.0) g/dL Hct 35.7 L (36.0-46.0) % MCV 88.4 (80.0-98.0) fL MCH 29.0 (27.0-32.0) pg MCHC 32.8 (31.0-37.0) g/dL RDW Std Deviation 41.7 (28.0-62.0) fl RDW Coeff of [place]ma 13 (11.0-15.0) % Plt Count 632 H (150-400) K/uL MPV 10.70 (7.40-12.00) fL Neut % (Auto) 82.2 H (48.0-80.0) % Lymph % (Auto) 9.5 L (16.0-40.0) % [place] % (Auto) 6.6 (0.0-15.0) % Eos % (Auto) 1.7 (0.0-7.0) % Baso % (Auto) 0.0 (0.0-1.5) % Neut # (Auto) 6.0 H (1.4-5.7) K/uL Lymph # (Auto) 0.7 (0.6-2.4) K/uL [place] # (Auto) 0.5 (0.0-0.8) K/uL Eos # (Auto) 0.1 (0.0-0.7) K/uL Baso # (Auto) 0.0 (0.0-0.1) K/uL Nucleated RBC % 0.0 /100WBC Nucleated RBCs # 0 K/uL Sodium 142 (136-145) mmol/L Potassium 4.1 (3.5-5.1) mmol/L Chloride 105 (98-107) mmol/L Carbon Dioxide 27.7 (21.0-32.0) mmol/L BUN 20 H (7.0-18.0) mg/dL Creatinine 0.9 (0.6-1.0) mg/dL Est Cr Clr Drug Dosing 77.76 mL/min Estimated GFR (MDRD) > 60.0 ml/min Glucose 84 (74-106) mg/dL Calcium 8.1 L (8.5-10.1) mg/dL Total Bilirubin 0.8 (0.2-1.0) mg/dL AST 23 (15-37) IU/L ALT 68 H (14-63) IU/L Alkaline Phosphatase 70 (46-116) U/L Total Protein 5.9 L (6.4-8.2) g/dL Albumin 2.1 L (3.4-5.0) g/dL Globulin 3.8 (2.6-4.0) g/dL Albumin/Globulin Ratio 0.6 L (0.9-1.6) Vancomycin Trough 18.6 H (5.0-10.0) ug/mL Result Diagrams: 04/03/21 05:15 04/03/21 05:15 Sepsis Event Note - Focused Exam Vital Signs: Vital Signs Temp Resp BP BP Pulse Ox 04/03/21 14:00 39 H 127/70 89 L 04/03/21 13:00 36.4 C 41 H 93 L 04/03/21 12:00 34 H 123/69 88 L 04/03/21 11:00 33 H 138/71 89 L 04/03/21 10:00 41 H 140/74 83 L 04/03/21 09:00 33 H 138/66 95 04/03/21 08:11 125/62 04/03/21 08:00 36.2 C 19 125/62 92 L 04/03/21 07:00 35 H 150/69 H 90 L 04/03/21 06:00 31 H 95 04/03/21 05:00 34 H 152/80 H 95 04/03/21 04:00 23 H 134/72 91 L - Problem List & Annotations (1) Acute respiratory failure with hypoxia SNOMED Code(s): 39661751, 081936699 Code(s): J96.01 - ACUTE RESPIRATORY FAILURE WITH HYPOXIA Status: Acute Current Visit: Yes (2) Hypertension SNOMED Code(s): 29480479 Code(s): I10 - ESSENTIAL (PRIMARY) HYPERTENSION Status: Acute Current Visit: Yes (3) Hypoxemia SNOMED Code(s): 811073410 Code(s): R09.02 - HYPOXEMIA Status: Acute Current Visit: Yes (4) Pneumonia due to COVID-19 virus SNOMED Code(s): 071088830825128100 Code(s): U07.1 - COVID-19; J12.82 - PNEUMONIA DUE TO CORONAVIRUS DISEASE 2019 Status: Acute Current Visit: Yes - My Orders Last 24 Hours: My Active Orders 04/03/21 16:00 levoFLOXacin [Levaquin] 750 mg PO Q24H 04/04/21 13:00 VANCOMYCIN TROUGH [CHEM] Routine - Plan Plan:: I have seen and evaluated the patient and agree with the residents note unless specified in my note
[2021-03-28] MEDS: REMDESIVIR 100 MG in Sodium Chloride 0.9% 100 ML IV SCH (14:55)
[2021-03-28] MEDS: Acetaminophen 325 MG Tab PO PRN (16:28)
[2021-03-28] MEDS: Enoxaparin 40 MG/0.4 ML Syringe SUBCUT SCH (17:58)
[2021-03-28] MEDS: Codeine/guaiFENesin 10-100 MG/5 ML Syrup 5 ML Cup PO PRN (20:01)
[2021-03-29] MEDS: Codeine/guaiFENesin 10-100 MG/5 ML Syrup 5 ML Cup PO PRN ×3 (00:03→15:50)
[2021-03-29] MEDS: Acetaminophen 325 MG Tab PO PRN (00:16)
[2021-03-29] MEDS: Albuterol/Ipratropium 4 GM Inhalation Spray INH SCH ×6 (02:56→22:53)
[2021-03-29] MEDS: Piperacillin/Tazobactam 4.5 GM in Sodium Chloride 0.9% 100 ML IV SCH ×3 (03:09→18:51)
[2021-03-29 03:58] LABS: BLOOD UREA NITROGEN,BUN 20 mg/dL (7.0-18.0); CARBON DIOXIDE,CO2 30.1 mmol/L (21.0-32.0); CHLORIDE,CL 104 mmol/L (98-107); GLUCOSE RANDOM 122 mg/dL (74-106); POTASSIUM,K 3.5 mmol/L (3.5-5.1); SODIUM,NA 143 mmol/L (136-145)
[2021-03-29] MEDS: VANCOmycin 1.5 GM/300 ML 1.5 GM in Premix Bag 1 BAG IV SCH ×3 (05:02→20:38)
[2021-03-29] MEDS: Pantoprazole 40 MG Tab.CR PO SCH (08:19)
[2021-03-29] MEDS: Dexamethasone 4 MG Tab PO SCH (08:19)
--- NOTE | 2021-03-29 13:28 | PCM.PN ---
- General Info Date of Service: 03/29/21 Subjective Update: The patient is a 35-year-old female, on day 4 of service, with a significant past medical history of hypertension, who was admitted to the medical floor today due to acute respiratory failure secondary to COVID-19 pneumonia. The patient is currently on heated high flow, O2 flow rate of 50, and FiO2 of 54. She is saturating at 93%. Nursing staff did reveal that when the patient ambulates her FiO2 must be turned up in order for her to saturate above 90%, but when at rest or in prone body position, FiO2 can be decreased to 54 and the patient saturates well above 90%. On interview today, she complains that she feels extremely weak. She feels aches in her ribs as well as her back and has the occasional chills. On further interview the patient admits that her shortness of breath has improved but she is has cough. The oxygen apparatus st ill causes some discomfort but she knows it is there for her own good. She denies any fevers or issues with urination and/or defecation. She has no other complaints at this time. - Review of Systems General: Reports: Weakness, Fatigue, Chills. Denies: Fever HEENT: Reports: Other (Dry throat). Denies: Headaches Pulmonary: Reports: Shortness of Breath, Cough Cardiovascular: Reports: Dyspnea on Exertion. Denies: Chest Pain, Palpitations Gastrointestinal: Denies: Abdominal Pain, Constipation, Diarrhea Genitourinary: Reports: Other. Denies: Dysuria Musculoskeletal: Reports: Other (Aches in her back and ribs) - Patient Data Vitals - Most Recent: Last Vital Signs Temp 96.5 F L 03/29/21 12:15 Pulse 63 03/29/21 12:15 Resp 28 H 03/29/21 12:15 BP 150/87 H 03/29/21 12:15 Pulse Ox 90 L 03/29/21 12:15 Weight - Most Recent: 224 lb I&O - Last 24 Hours: Intake & Output 03/28/21 03/29/21 03/29/21 22:59 06:59 14:59 Intake Total 1520 1340 Output Total 950 550 Balance 570 790 Lab Results Last 24 Hours: Laboratory Results - last 24 hr 03/27/21 03/28/21 03/29/21 Range/Units 18:36 19:40 03:00 WBC 9.26 (4.0-11.0) K/uL RBC 3.86 L (4.30-5.90) M/uL Hgb 11.3 L (12.0-16.0) g/dL Hct 34.8 L (36.0-46.0) % MCV 90.2 (80.0-98.0) fL MCH 29.3 (27.0-32.0) pg MCHC 32.5 (31.0-37.0) g/dL RDW Std Deviation 39.8 (28.0-62.0) fl RDW Coeff of [place] 12 (11.0-15.0) % Plt Count 387 (150-400) K/uL MPV 10.00 (7.40-12.00) fL Neut % (Auto) 86.1 H (48.0-80.0) % Lymph % (Auto) 7.1 L (16.0-40.0) % [place] % (Auto) 6.8 (0.0-15.0) % Eos % (Auto) 0.0 (0.0-7.0) % Baso % (Auto) 0.0 (0.0-1.5) % Neut # (Auto) 8.0 H (1.4-5.7) K/uL Lymph # (Auto) 0.7 (0.6-2.4) K/uL [place] # (Auto) 0.6 (0.0-0.8) K/uL Eos # (Auto) 0.0 (0.0-0.7) K/uL Baso # (Auto) 0.0 (0.0-0.1) K/uL Sodium (136-145) mmol/L Potassium (3.5-5.1) mmol/L Chloride (98-107) mmol/L Carbon Dioxide (21.0-32.0) mmol/L BUN (7.0-18.0) mg/dL Creatinine (0.6-1.0) mg/dL Est Cr Clr Drug Dosing mL/min Estimated GFR (MDRD) ml/min Glucose (74-106) mg/dL Calcium (8.5-10.1) mg/dL Total Bilirubin (0.2-1.0) mg/dL AST (15-37) IU/L ALT (14-63) IU/L Alkaline Phosphatase (46-116) U/L Total Protein (6.4-8.2) g/dL Albumin (3.4-5.0) g/dL Globulin (2.6-4.0) g/dL Albumin/Globulin Ratio (0.9-1.6) Procalcitonin 0.45 H ng/mL Vancomycin Trough 63.6 H (5.0-10.0) ug/mL 03/29/21 03/29/21 Range/Units 03:00 03:00 WBC (4.0-11.0) K/uL RBC (4.30-5.90) M/uL Hgb (12.0-16.0) g/dL Hct (36.0-46.0) % MCV (80.0-98.0) fL MCH (27.0-32.0) pg MCHC (31.0-37.0) g/dL RDW Std Deviation (28.0-62.0) fl RDW Coeff of [place] (11.0-15.0) % Plt Count (150-400) K/uL MPV (7.40-12.00) fL Neut % (Auto) (48.0-80.0) % Lymph % (Auto) (16.0-40.0) % [place] % (Auto) (0.0-15.0) % Eos % (Auto) (0.0-7.0) % Baso % (Auto) (0.0-1.5) % Neut # (Auto) (1.4-5.7) K/uL Lymph # (Auto) (0.6-2.4) K/uL [place] # (Auto) (0.0-0.8) K/uL Eos # (Auto) (0.0-0.7) K/uL Baso # (Auto) (0.0-0.1) K/uL Sodium 143 (136-145) mmol/L Potassium 3.5 (3.5-5.1) mmol/L Chloride 104 (98-107) mmol/L Carbon Dioxide 30.1 (21.0-32.0) mmol/L BUN 20 H (7.0-18.0) mg/dL Creatinine 0.9 (0.6-1.0) mg/dL Est Cr Clr Drug Dosing 77.76 mL/min Estimated GFR (MDRD) > 60.0 ml/min Glucose 122 H (74-106) mg/dL Calcium 7.4 L (8.5-10.1) mg/dL Total Bilirubin 0.6 (0.2-1.0) mg/dL AST 29 (15-37) IU/L ALT 43 (14-63) IU/L Alkaline Phosphatase 72 (46-116) U/L Total Protein 5.7 L (6.4-8.2) g/dL Albumin 2.1 L (3.4-5.0) g/dL Globulin 3.6 (2.6-4.0) g/dL Albumin/Globulin Ratio 0.6 L (0.9-1.6) Procalcitonin ng/mL Vancomycin Trough 24.0 H (5.0-10.0) ug/mL Daniel Results Last 24 Hours: Microbiology 03/26/21 11:03 Aerobic Blood Culture - Preliminary Blood - Venous - Lab Draw NO GROWTH AFTER 3 DAYS Anaerobic Blood Culture - Preliminary NO GROWTH AFTER 3 DAYS 03/26/21 10:39 Aerobic Blood Culture - Preliminary Blood - Venous NO GROWTH AFTER 3 DAYS Anaerobic Blood Culture - Preliminary 03/28/21 05:30 Aerobic Blood Culture - Preliminary Blood - Venous - Lab Draw NO GROWTH AFTER 1 DAY Anaerobic Blood Culture - Preliminary NO GROWTH AFTER 1 DAY 03/28/21 05:20 Aerobic Blood Culture - Preliminary Blood - Venous NO GROWTH AFTER 1 DAY Anaerobic Blood Culture - Preliminary NO GROWTH AFTER 1 DAY 03/26/21 10:39 Blood Culture Identification Panel - Preliminary Blood Med Orders - Current: Current Medications Acetaminophen (Acetaminophen 325 Mg Tab) 650 mg PO Q6H PRN PRN Reason: Pain/Fever Last Admin: 03/29/21 00:16 Dose: 650 mg Documented by: Albuterol/Ipratropium (Albuterol/Ipratropium 4 Gm Inhalation [place]) 0 gm INH Q4HRRT [facility] Last Admin: 03/29/21 10:07 Dose: 1 puff Documented by: Baricitinib (Baricitinib 2 Mg Tab) 4 mg PO DAILY [facility] Dexamethasone (Dexamethasone 4 Mg Tab) 6 mg PO DAILY [facility] Last Admin: 03/29/21 08:19 Dose: 6 mg Documented by: Enoxaparin Sodium (Enoxaparin 40 Mg/0.4 Ml Syringe) 40 mg SUBCUT Q24H [facility] Last Admin: 03/28/21 17:58 Dose: 40 mg Documented by: Guaifenesin/Codeine Phosphate (Codeine/Guaifenesin 10-100 Mg/5 Ml Syrup 5 Ml Cup) 5 ml PO Q4H PRN PRN Reason: Cough Last Admin: 03/29/21 07:19 Dose: 5 ml Documented by: Remdesivir 100 mg/ Sodium (Chloride) 100 mls @ 100 mls/hr IV Q24H [facility] Stop: 03/30/21 14:29 Last Admin: 03/28/21 14:55 Dose: 100 mls/hr Documented by: Piperacillin Sod/Tazobactam (Sod 4.5 gm/ Sodium Chloride) 100 mls @ 100 mls/hr IV Q8H [facility] Last Admin: 03/29/21 10:38 Dose: 100 mls/hr Documented by: Vancomycin HCl 1.5 gm/ Premix 300 mls @ 200 mls/hr IV Q8H [facility] Last Admin: 03/29/21 12:18 Dose: 200 mls/hr Documented by: Ondansetron HCl (Ondansetron 4 Mg/2 Ml Sdv) 4 mg IVPUSH Q6H PRN PRN Reason: Nausea/Vomiting Pantoprazole Sodium (Pantoprazole 40 Mg Tab.Cr) 40 mg PO DAILY [facility] Last Admin: 03/29/21 08:19 Dose: 40 mg Documented by: Ramipril (Ramipril 10 Mg Cap) 10 mg PO DAILY [facility] Last Admin: 03/29/21 08:19 Dose: 10 mg Documented by: Sodium Chloride (Sodium Chloride 0.9% 10 Ml Syringe) 10 ml FLUSH ASDIRECTED PRN PRN Reason: Keep Vein Open Last Admin: 03/26/21 10:51 Dose: 10 ml Documented by: Sodium Chloride (Sodium Chloride 0.9% 2.5 Ml Syringe) 2.5 ml FLUSH ASDIRECTED PRN PRN Reason: Keep Vein Open Last Admin: 03/26/21 10:51 Dose: 2.5 ml Documented by: Vancomycin HCl (Pharmacy To Dose - Vancomycin) 1 dose .XX ASDIRECTED [facility] Discontinued Medications Acetaminophen (Acetaminophen 325 Mg Tab) 650 mg PO NOW ONE Stop: 03/26/21 10:45 Last Admin: 03/26/21 10:50 Dose: 650 mg Documented by: Albuterol/Ipratropium (Albuterol/Ipratropium 4 Gm Inhalation [place]) 1 gm INH Q4HRRT PRN PRN Reason: Dyspnea Baricitinib (Baricitinib 2 Mg Tab) 4 mg PO DAILY [facility] Last Admin: 03/29/21 08:19 Dose: 4 mg Documented by: Guaifenesin/Dextromethorphan (Guaifenesin/Dextromethorphan 100-10 Mg/5 Ml Soln 10 Ml Cup) 10 ml PO Q4H PRN PRN Reason: Cough Last Admin: 03/27/21 09:24 Dose: 10 ml Documented by: Sodium Chloride (Normal Saline) 1,000 mls @ 999 mls/hr IV .BOLUS ONE Stop: 03/26/21 11:44 Last Admin: 03/26/21 10:51 Dose: 999 mls/hr Documented by: Remdesivir 200 mg/ Sodium (Chloride) 250 mls @ 250 mls/hr IV ONETIME ONE Stop: 03/26/21 13:29 Last Admin: 03/26/21 12:44 Dose: 250 mls/hr Documented by: Levofloxacin/Dextrose 750 mg/ (Premix) 150 mls @ 100 mls/hr IV Q24H [facility] Last Admin: 03/26/21 22:45 Dose: 100 mls/hr Documented by: Vancomycin HCl 1.5 gm/ Premix 300 mls @ 200 mls/hr IV Q8H [facility] Last Admin: 03/29/21 05:02 Dose: 200 mls/hr Documented by: Ketorolac Tromethamine (Ketorolac 30 Mg/Ml Sdv) 30 mg IVPUSH ONETIME ONE Stop: 03/26/21 10:45 Last Admin: 03/26/21 10:50 Dose: 30 mg Documented by: Ondansetron HCl (Ondansetron 4 Mg/2 Ml Sdv) 4 mg IVPUSH ONETIME ONE Stop: 03/26/21 10:45 Last Admin: 03/26/21 10:50 Dose: 4 mg Documented by: Potassium Chloride (Potassium Chloride 20 Meq Tab.Er) 40 meq PO ONETIME ONE Stop: 03/26/21 20:01 Last Admin: 03/26/21 21:20 Dose: 40 meq Documented by: Ramipril (Ramipril 10 Mg Cap) 10 mg PO ONETIME ONE Stop: 03/26/21 21:16 Last Admin: 03/26/21 21:20 Dose: 10 mg Documented by: - Exam General: Alert, Oriented, Mild Distress HEENT: Other (Dry mucous membranes) Neck: Trachea Midline Lungs: Wheezing Cardiovascular: Regular Rate, Regular Rhythm, No Murmurs GI/Abdominal Exam: Normal Bowel Sounds, Soft, Non-Tender - Patient Data Lab Results Last 24 hrs: Laboratory Results - last 24 hr 03/27/21 03/28/21 03/29/21 Range/Units 18:36 19:40 03:00 WBC 9.26 (4.0-11.0) K/uL RBC 3.86 L (4.30-5.90) M/uL Hgb 11.3 L (12.0-16.0) g/dL Hct 34.8 L (36.0-46.0) % MCV 90.2 (80.0-98.0) fL MCH 29.3 (27.0-32.0) pg MCHC 32.5 (31.0-37.0) g/dL RDW Std Deviation 39.8 (28.0-62.0) fl RDW Coeff of [place] 12 (11.0-15.0) % Plt Count 387 (150-400) K/uL MPV 10.00 (7.40-12.00) fL Neut % (Auto) 86.1 H (48.0-80.0) % Lymph % (Auto) 7.1 L (16.0-40.0) % [place] % (Auto) 6.8 (0.0-15.0) % Eos % (Auto) 0.0 (0.0-7.0) % Baso % (Auto) 0.0 (0.0-1.5) % Neut # (Auto) 8.0 H (1.4-5.7) K/uL Lymph # (Auto) 0.7 (0.6-2.4) K/uL [place] # (Auto) 0.6 (0.0-0.8) K/uL Eos # (Auto) 0.0 (0.0-0.7) K/uL Baso # (Auto) 0.0 (0.0-0.1) K/uL Sodium (136-145) mmol/L Potassium (3.5-5.1) mmol/L Chloride (98-107) mmol/L Carbon Dioxide (21.0-32.0) mmol/L BUN (7.0-18.0) mg/dL Creatinine (0.6-1.0) mg/dL Est Cr Clr Drug Dosing mL/min Estimated GFR (MDRD) ml/min Glucose (74-106) mg/dL Calcium (8.5-10.1) mg/dL Total Bilirubin (0.2-1.0) mg/dL AST (15-37) IU/L ALT (14-63) IU/L Alkaline Phosphatase (46-116) U/L Total Protein (6.4-8.2) g/dL Albumin (3.4-5.0) g/dL Globulin (2.6-4.0) g/dL Albumin/Globulin Ratio (0.9-1.6) Procalcitonin 0.45 H ng/mL Vancomycin Trough 63.6 H (5.0-10.0) ug/mL 03/29/21 03/29/21 Range/Units 03:00 03:00 WBC (4.0-11.0) K/uL RBC (4.30-5.90) M/uL Hgb (12.0-16.0) g/dL Hct (36.0-46.0) % MCV (80.0-98.0) fL MCH (27.0-32.0) pg MCHC (31.0-37.0) g/dL RDW Std Deviation (28.0-62.0) fl RDW Coeff of [place] (11.0-15.0) % Plt Count (150-400) K/uL MPV (7.40-12.00) fL Neut % (Auto) (48.0-80.0) % Lymph % (Auto) (16.0-40.0) % [place] % (Auto) (0.0-15.0) % Eos % (Auto) (0.0-7.0) % Baso % (Auto) (0.0-1.5) % Neut # (Auto) (1.4-5.7) K/uL Lymph # (Auto) (0.6-2.4) K/uL [place] # (Auto) (0.0-0.8) K/uL Eos # (Auto) (0.0-0.7) K/uL Baso # (Auto) (0.0-0.1) K/uL Sodium 143 (136-145) mmol/L Potassium 3.5 (3.5-5.1) mmol/L Chloride 104 (98-107) mmol/L Carbon Dioxide 30.1 (21.0-32.0) mmol/L BUN 20 H (7.0-18.0) mg/dL Creatinine 0.9 (0.6-1.0) mg/dL Est Cr Clr Drug Dosing 77.76 mL/min Estimated GFR (MDRD) > 60.0 ml/min Glucose 122 H (74-106) mg/dL Calcium 7.4 L (8.5-10.1) mg/dL Total Bilirubin 0.6 (0.2-1.0) mg/dL AST 29 (15-37) IU/L ALT 43 (14-63) IU/L Alkaline Phosphatase 72 (46-116) U/L Total Protein 5.7 L (6.4-8.2) g/dL Albumin 2.1 L (3.4-5.0) g/dL Globulin 3.6 (2.6-4.0) g/dL Albumin/Globulin Ratio 0.6 L (0.9-1.6) Procalcitonin ng/mL Vancomycin Trough 24.0 H (5.0-10.0) ug/mL Result Diagrams: 03/29/21 03:00 03/29/21 03:00 Daniel Results Last 24 hrs: Microbiology 03/26/21 11:03 Aerobic Blood Culture - Preliminary Blood - Venous - Lab Draw NO GROWTH AFTER 3 DAYS Anaerobic Blood Culture - Preliminary NO GROWTH AFTER 3 DAYS 03/26/21 10:39 Aerobic Blood Culture - Preliminary Blood - Venous NO GROWTH AFTER 3 DAYS Anaerobic Blood Culture - Preliminary 03/28/21 05:30 Aerobic Blood Culture - Preliminary Blood - Venous - Lab Draw NO GROWTH AFTER 1 DAY Anaerobic Blood Culture - Preliminary NO GROWTH AFTER 1 DAY 03/28/21 05:20 Aerobic Blood Culture - Preliminary Blood - Venous NO GROWTH AFTER 1 DAY Anaerobic Blood Culture - Preliminary NO GROWTH AFTER 1 DAY 03/26/21 10:39 Blood Culture Identification Panel - Preliminary Blood Sepsis Event Note - Evaluation Sepsis Screening Result: No Definite Risk - Focused Exam Vital Signs: Vital Signs Temp Pulse Resp BP BP Pulse Ox 03/29/21 12:15 96.5 F L 63 28 H 150/87 H 90 L 03/29/21 10:40 22 H 91 L 03/29/21 08:19 157/101 H 03/29/21 08:11 98.3 F 80 24 H 157/101 H 92 L 03/29/21 03:03 97.4 F 74 22 H 141/82 H 93 L - Problem List & Annotations (1) Hypertension SNOMED Code(s): 16908956 Code(s): I10 - ESSENTIAL (PRIMARY) HYPERTENSION Status: Acute Current Visit: Yes (2) Pneumonia due to COVID-19 virus SNOMED Code(s): 525331287026060368 Code(s): U07.1 - COVID-19; J12.82 - PNEUMONIA DUE TO CORONAVIRUS DISEASE 2018 Status: Acute Current Visit: Yes (3) COVID-19 SNOMED Code(s): 612712962 Code(s): U07.1 - COVID-19 Status: Acute Current Visit: No (4) Hypoxia SNOMED Code(s): 992673531 Code(s): R09.02 - HYPOXEMIA Status: Acute Current Visit: No (5) Bacteremia SNOMED Code(s): 1748814 Code(s): R78.81 - BACTEREMIA Status: Acute Current Visit: Yes - Problem List Review Problem List Initiated/Reviewed/Updated: Yes - My Orders Last 24 Hours: My Active Orders 03/30/21 05:11 CBC WITH AUTO DIFF [HEME] AM CMP [COMPREHENSIVE METABOLIC PN,CMP] [CHEM] AM - Plan Plan:: 1. Acute hypoxic respiratory failure secondary to COVID-19 pneumonia -Continue the patient on remdesivir 100 mg per IV route -Continue the patient on dexamethasone 6 mg per oral route once a day -For shortness of breath continue the patient on Combivent therapy -Incentive spirometry in the prone position is encouraged -For cough continue the patient on Robitussin DM as needed -Continue to supply oxygen for the patient, wean as appropriate 2. [id number] cocci in clumps -The patient has been started on Zosyn 4.5 g per IV route every 8 hours and Vancomycin 1.5 g per IV route every 8 hours 3. Hypertension -We will continue with the patient's home dose of ramipril to control blood pressure
[2021-03-29] MEDS: REMDESIVIR 100 MG in Sodium Chloride 0.9% 100 ML IV SCH (14:26)
--- NOTE | 2021-03-29 14:53 | CR ---
EXAM DATE: 03/26/21 PATIENT'S AGE: 35 [facility] Facility[facility] Site Site : 1985 Study: XRay-Chest [id number] 12:59:17 PM Ordering Physician: ALFIE MOLINA Final Report: INDICATION: COVID infection. TECHNIQUE: Chest 1 views. COMPARISON: CT chest March 23, 2021. FINDINGS: Cardiovascular and mediastinum: Heart size and vasculature are normal in caliber and appearance. Lungs and pleural spaces: Severe dense infiltrates present in the left lung was smaller patchy infiltrates in the right lung. No pneumothorax. Bones and soft tissues: No significant findings. IMPRESSION: Relatively severe COVID pneumonitis has worsened since the prior exam. Dictated by Narinder West MD @ 03/26/2021 1:29:48 PM Signed by: Narinder West MD @03/26/2021 1:29:48 PM (Electronic Signature) Report Signed by Proxy. [facility]
[2021-03-29] MEDS: Enoxaparin 40 MG/0.4 ML Syringe SUBCUT SCH (18:51)
[2021-03-30] MEDS: Piperacillin/Tazobactam 4.5 GM in Sodium Chloride 0.9% 100 ML IV SCH ×3 (03:05→19:27)
[2021-03-30] MEDS: Albuterol/Ipratropium 4 GM Inhalation Spray INH SCH ×6 (03:05→21:29)
[2021-03-30] MEDS: Codeine/guaiFENesin 10-100 MG/5 ML Syrup 5 ML Cup PO PRN ×2 (03:05→21:29)
[2021-03-30] MEDS: VANCOmycin 1.5 GM/300 ML 1.5 GM in Premix Bag 1 BAG IV SCH ×3 (05:04→21:29)
[2021-03-30 07:04] LABS: BLOOD UREA NITROGEN,BUN 13 mg/dL (7.0-18.0); CARBON DIOXIDE,CO2 30.1 mmol/L (21.0-32.0); CHLORIDE,CL 101 mmol/L (98-107); GLUCOSE RANDOM 86 mg/dL (74-106); POTASSIUM,K 3.6 mmol/L (3.5-5.1); SODIUM,NA 140 mmol/L (136-145)
[2021-03-30] MEDS: Dexamethasone 4 MG Tab PO SCH (09:51)
[2021-03-30] MEDS: Pantoprazole 40 MG Tab.CR PO SCH (09:54)
--- NOTE | 2021-03-30 11:15 | PCM.PN ---
- General Info Date of Service: 03/30/21 Subjective Update: The patient is a 35-year-old female, on day 5 of service, with a significant past medical history of hypertension, who was admitted to the medical floor today due to acute respiratory failure secondary to COVID-19 pneumonia. The patient is currently on heated high flow, O2 flow rate of 45, and FiO2 of 75. She is saturating at 92%. Upon interview today the patient states that she only feels shortness of breath and has productive cough when she ambulates, and that both of these symptoms do not arise when she is at rest. She feels better today than she did for the last 2 days. She continues to have aches in her ribs and back with the occasional chills. She denies any fevers or issues with urination and/or defecation. She has no other complaints at this time. - Review of Systems General: Reports: Fatigue, Chills. Denies: Fever HEENT: Denies: Headaches, Sore Throat Pulmonary: Reports: Shortness of Breath, Cough Cardiovascular: Reports: Dyspnea on Exertion. Denies: Chest Pain, Palpitations Gastrointestinal: Denies: Abdominal Pain Genitourinary: Denies: Dysuria - Patient Data Vitals - Most Recent: Last Vital Signs Temp 98.6 F 03/30/21 08:00 Pulse 80 03/30/21 08:00 Resp 26 H 03/30/21 08:00 BP 158/75 H 03/30/21 09:52 Pulse Ox 92 L 03/30/21 08:00 Weight - Most Recent: 224 lb I&O - Last 24 Hours: Intake & Output 03/29/21 03/30/21 03/30/21 22:59 06:59 14:59 Intake Total 1200 400 Output Total 1500 Balance -300 400 Lab Results Last 24 Hours: Laboratory Results - last 24 hr 03/30/21 03/30/21 Range/Units 06:05 06:05 WBC 10.53 (4.0-11.0) K/uL RBC 4.16 L (4.30-5.90) M/uL Hgb 12.0 (12.0-16.0) g/dL Hct 37.2 (36.0-46.0) % MCV 89.4 (80.0-98.0) fL MCH 28.8 (27.0-32.0) pg MCHC 32.3 (31.0-37.0) g/dL RDW Std Deviation 39.3 (28.0-62.0) fl RDW Coeff of Z[place]ma 12 (11.0-15.0) % Plt Count 408 H (150-400) K/uL MPV 10.40 (7.40-12.00) fL Add Manual Diff YES Neutrophils % (Manual) 85 H (48.0-80.0) % Band Neutrophils % 9 % Lymphocytes % (Manual) 5 L (16.0-40.0) % Monocytes % (Manual) 1 (0.0-15.0) % Absolute Seg Neuts 9.0 H (1.4-5.7) Band Neutrophils # 0.9 Lymphocytes # (Manual) 0.5 L (0.6-2.4) Monocytes # (Manual) 0.1 (0.0-0.8) Sodium 140 (136-145) mmol/L Potassium 3.6 (3.5-5.1) mmol/L Chloride 101 (98-107) mmol/L Carbon Dioxide 30.1 (21.0-32.0) mmol/L BUN 13 (7.0-18.0) mg/dL Creatinine 0.9 (0.6-1.0) mg/dL Est Cr Clr Drug Dosing 77.76 mL/min Estimated GFR (MDRD) > 60.0 ml/min Glucose 86 (74-106) mg/dL Calcium 7.5 L (8.5-10.1) mg/dL Total Bilirubin 1.0 (0.2-1.0) mg/dL AST 34 (15-37) IU/L ALT 44 (14-63) IU/L Alkaline Phosphatase 72 (46-116) U/L Total Protein 6.0 L (6.4-8.2) g/dL Albumin 2.2 L (3.4-5.0) g/dL Globulin 3.8 (2.6-4.0) g/dL Albumin/Globulin Ratio 0.6 L (0.9-1.6) Daniel Results Last 24 Hours: Microbiology 03/26/21 11:03 Aerobic Blood Culture - Preliminary Blood - Venous - Lab Draw NO GROWTH AFTER 4 DAYS Anaerobic Blood Culture - Preliminary NO GROWTH AFTER 4 DAYS 03/26/21 10:39 Aerobic Blood Culture - Preliminary Blood - Venous NO GROWTH AFTER 4 DAYS Anaerobic Blood Culture - Preliminary 03/26/21 10:39 Blood Culture Identification Panel - Preliminary Blood Staphylococcus Coagulase Neg 03/28/21 05:30 Aerobic Blood Culture - Preliminary Blood - Venous - Lab Draw NO GROWTH AFTER 2 DAYS Anaerobic Blood Culture - Preliminary NO GROWTH AFTER 2 DAYS 03/28/21 05:20 Aerobic Blood Culture - Preliminary Blood - Venous NO GROWTH AFTER 2 DAYS Anaerobic Blood Culture - Preliminary NO GROWTH AFTER 2 DAYS Med Orders - Current: Current Medications Acetaminophen (Acetaminophen 325 Mg Tab) 650 mg PO Q6H PRN PRN Reason: Pain/Fever Last Admin: 03/29/21 00:16 Dose: 650 mg Documented by: Albuterol/Ipratropium (Albuterol/Ipratropium 4 Gm Inhalation [place]) 0 gm INH Q4HRRT [facility] Last Admin: 03/30/21 09:54 Dose: 1 puff Documented by: Baricitinib (Baricitinib 2 Mg Tab) 4 mg PO DAILY [facility] Last Admin: 03/30/21 09:51 Dose: 4 mg Documented by: Dexamethasone (Dexamethasone 4 Mg Tab) 6 mg PO DAILY [facility] Last Admin: 03/30/21 09:51 Dose: 6 mg Documented by: Enoxaparin Sodium (Enoxaparin 40 Mg/0.4 Ml Syringe) 40 mg SUBCUT Q24H [facility] Last Admin: 03/29/21 18:51 Dose: 40 mg Documented by: Guaifenesin/Codeine Phosphate (Codeine/Guaifenesin 10-100 Mg/5 Ml Syrup 5 Ml Cup) 5 ml PO Q4H PRN PRN Reason: Cough Last Admin: 03/30/21 03:05 Dose: 5 ml Documented by: Remdesivir 100 mg/ Sodium (Chloride) 100 mls @ 100 mls/hr IV Q24H [facility] Stop: 03/30/21 14:29 Last Admin: 03/29/21 14:26 Dose: 100 mls/hr Documented by: Piperacillin Sod/Tazobactam (Sod 4.5 gm/ Sodium Chloride) 100 mls @ 100 mls/hr IV Q8H [facility] Last Admin: 03/30/21 10:56 Dose: 100 mls/hr Documented by: Vancomycin HCl 1.5 gm/ Premix 300 mls @ 200 mls/hr IV Q8H [facility] Last Admin: 03/30/21 05:04 Dose: 200 mls/hr Documented by: Ondansetron HCl (Ondansetron 4 Mg/2 Ml Sdv) 4 mg IVPUSH Q6H PRN PRN Reason: Nausea/Vomiting Pantoprazole Sodium (Pantoprazole 40 Mg Tab.Cr) 40 mg PO DAILY [facility] Last Admin: 03/30/21 09:54 Dose: 40 mg Documented by: Ramipril (Ramipril 10 Mg Cap) 10 mg PO DAILY [facility] Last Admin: 03/30/21 09:52 Dose: 10 mg Documented by: Sodium Chloride (Sodium Chloride 0.9% 10 Ml Syringe) 10 ml FLUSH ASDIRECTED PRN PRN Reason: Keep Vein Open Last Admin: 03/26/21 10:51 Dose: 10 ml Documented by: Sodium Chloride (Sodium Chloride 0.9% 2.5 Ml Syringe) 2.5 ml FLUSH ASDIRECTED PRN PRN Reason: Keep Vein Open Last Admin: 03/26/21 10:51 Dose: 2.5 ml Documented by: Vancomycin HCl (Pharmacy To Dose - Vancomycin) 1 dose .XX ASDIRECTED [facility] Discontinued Medications Acetaminophen (Acetaminophen 325 Mg Tab) 650 mg PO NOW ONE Stop: 03/26/21 10:45 Last Admin: 03/26/21 10:50 Dose: 650 mg Documented by: Albuterol/Ipratropium (Albuterol/Ipratropium 4 Gm Inhalation [place]) 1 gm INH Q4HRRT PRN PRN Reason: Dyspnea Baricitinib (Baricitinib 2 Mg Tab) 4 mg PO DAILY [facility] Last Admin: 03/29/21 08:19 Dose: 4 mg Documented by: Guaifenesin/Dextromethorphan (Guaifenesin/Dextromethorphan 100-10 Mg/5 Ml Soln 10 Ml Cup) 10 ml PO Q4H PRN PRN Reason: Cough Last Admin: 03/27/21 09:24 Dose: 10 ml Documented by: Sodium Chloride (Normal Saline) 1,000 mls @ 999 mls/hr IV .BOLUS ONE Stop: 03/26/21 11:44 Last Admin: 03/26/21 10:51 Dose: 999 mls/hr Documented by: Remdesivir 200 mg/ Sodium (Chloride) 250 mls @ 250 mls/hr IV ONETIME ONE Stop: 03/26/21 13:29 Last Admin: 03/26/21 12:44 Dose: 250 mls/hr Documented by: Levofloxacin/Dextrose 750 mg/ (Premix) 150 mls @ 100 mls/hr IV Q24H [facility] Last Admin: 03/26/21 22:45 Dose: 100 mls/hr Documented by: Vancomycin HCl 1.5 gm/ Premix 300 mls @ 200 mls/hr IV Q8H [facility] Last Admin: 03/29/21 05:02 Dose: 200 mls/hr Documented by: Ketorolac Tromethamine (Ketorolac 30 Mg/Ml Sdv) 30 mg IVPUSH ONETIME ONE Stop: 03/26/21 10:45 Last Admin: 03/26/21 10:50 Dose: 30 mg Documented by: Ondansetron HCl (Ondansetron 4 Mg/2 Ml Sdv) 4 mg IVPUSH ONETIME ONE Stop: 03/26/21 10:45 Last Admin: 03/26/21 10:50 Dose: 4 mg Documented by: Potassium Chloride (Potassium Chloride 20 Meq Tab.Er) 40 meq PO ONETIME ONE Stop: 03/26/21 20:01 Last Admin: 03/26/21 21:20 Dose: 40 meq Documented by: Ramipril (Ramipril 10 Mg Cap) 10 mg PO ONETIME ONE Stop: 03/26/21 21:16 Last Admin: 03/26/21 21:20 Dose: 10 mg Documented by: - Exam General: Alert, Oriented, Mild Distress HEENT: Other (Dry mucous membranes) Neck: Trachea Midline Lungs: Clear to Auscultation, Other (Tachypnea) Cardiovascular: Regular Rate, Regular Rhythm, No Murmurs GI/Abdominal Exam: Normal Bowel Sounds, Soft, Non-Tender - Patient Data Lab Results Last 24 hrs: Laboratory Results - last 24 hr 03/30/21 03/30/21 Range/Units 06:05 06:05 WBC 10.53 (4.0-11.0) K/uL RBC 4.16 L (4.30-5.90) M/uL Hgb 12.0 (12.0-16.0) g/dL Hct 37.2 (36.0-46.0) % MCV 89.4 (80.0-98.0) fL MCH 28.8 (27.0-32.0) pg MCHC 32.3 (31.0-37.0) g/dL RDW Std Deviation 39.3 (28.0-62.0) fl RDW Coeff of [place] 12 (11.0-15.0) % Plt Count 408 H (150-400) K/uL MPV 10.40 (7.40-12.00) fL Add Manual Diff YES Neutrophils % (Manual) 85 H (48.0-80.0) % Band Neutrophils % 9 % Lymphocytes % (Manual) 5 L (16.0-40.0) % Monocytes % (Manual) 1 (0.0-15.0) % Absolute Seg Neuts 9.0 H (1.4-5.7) Band Neutrophils # 0.9 Lymphocytes # (Manual) 0.5 L (0.6-2.4) Monocytes # (Manual) 0.1 (0.0-0.8) Sodium 140 (136-145) mmol/L Potassium 3.6 (3.5-5.1) mmol/L Chloride 101 (98-107) mmol/L Carbon Dioxide 30.1 (21.0-32.0) mmol/L BUN 13 (7.0-18.0) mg/dL Creatinine 0.9 (0.6-1.0) mg/dL Est Cr Clr Drug Dosing 77.76 mL/min Estimated GFR (MDRD) > 60.0 ml/min Glucose 86 (74-106) mg/dL Calcium 7.5 L (8.5-10.1) mg/dL Total Bilirubin 1.0 (0.2-1.0) mg/dL AST 34 (15-37) IU/L ALT 44 (14-63) IU/L Alkaline Phosphatase 72 (46-116) U/L Total Protein 6.0 L (6.4-8.2) g/dL Albumin 2.2 L (3.4-5.0) g/dL Globulin 3.8 (2.6-4.0) g/dL Albumin/Globulin Ratio 0.6 L (0.9-1.6) Result Diagrams: 03/30/21 06:05 03/30/21 06:05 Daniel Results Last 24 hrs: Microbiology 03/26/21 11:03 Aerobic Blood Culture - Preliminary Blood - Venous - Lab Draw NO GROWTH AFTER 4 DAYS Anaerobic Blood Culture - Preliminary NO GROWTH AFTER 4 DAYS 03/26/21 10:39 Aerobic Blood Culture - Preliminary Blood - Venous NO GROWTH AFTER 4 DAYS Anaerobic Blood Culture - Preliminary 03/26/21 10:39 Blood Culture Identification Panel - Preliminary Blood Staphylococcus Coagulase Neg 03/28/21 05:30 Aerobic Blood Culture - Preliminary Blood - Venous - Lab Draw NO GROWTH AFTER 2 DAYS Anaerobic Blood Culture - Preliminary NO GROWTH AFTER 2 DAYS 03/28/21 05:20 Aerobic Blood Culture - Preliminary Blood - Venous NO GROWTH AFTER 2 DAYS Anaerobic Blood Culture - Preliminary NO GROWTH AFTER 2 DAYS Sepsis Event Note - Evaluation Sepsis Screening Result: No Definite Risk - Focused Exam Vital Signs: Vital Signs Temp Temp Pulse Resp BP BP Pulse Ox 03/30/21 09:52 158/75 H 03/30/21 08:00 98.8 F 67 34 H 157/75 H 91 L 03/30/21 03:22 97.6 F 63 26 H 157/75 H 92 L 03/29/21 23:50 97.5 F 58 L 26 H 144/75 H 91 L - Problem List & Annotations (1) Hypertension SNOMED Code(s): 85600249 Code(s): I10 - ESSENTIAL (PRIMARY) HYPERTENSION Status: Acute Current Visit: Yes (2) Pneumonia due to COVID-19 virus SNOMED Code(s): 144875508972729104 Code(s): U07.1 - COVID-19; J12.82 - PNEUMONIA DUE TO CORONAVIRUS DISEASE 2019 Status: Acute Current Visit: Yes (3) COVID-19 SNOMED Code(s): 374951951 Code(s): U07.1 - COVID-19 Status: Acute Current Visit: No (4) Hypoxia SNOMED Code(s): 044235893 Code(s): R09.02 - HYPOXEMIA Status: Acute Current Visit: No (5) Bacteremia SNOMED Code(s): 7060679 Code(s): R78.81 - BACTEREMIA Status: Acute Current Visit: Yes - Problem List Review Problem List Initiated/Reviewed/Updated: Yes - Plan Plan:: 1. Acute hypoxic respiratory failure secondary to COVID-19 pneumonia -Continue the patient on remdesivir 100 mg per IV route -Continue the patient on dexamethasone 6 mg per oral route once a day -Continue with baricitinib 4 mg per oral route once a day -For nausea continue with Zofran as needed -For shortness of breath, continue Combivent therapy -Incentive spirometry in the prone position -For cough, continue Robitussin as needed -Continue to supply oxygen for the patient, wean as appropriate 2. Bacteremia -Continue Zosyn 4.5 g per IV route every 8 hours and Vancomycin 1.5 g per IV route every 8 hours -Most recent blood cultures showed no growth 3. Hypertension -We will continue ramipril to control blood pressure
[2021-03-30] MEDS: REMDESIVIR 100 MG in Sodium Chloride 0.9% 100 ML IV SCH (12:35)
[2021-03-30] MEDS: Enoxaparin 40 MG/0.4 ML Syringe SUBCUT SCH (17:00)
[2021-03-31] MEDS: Albuterol/Ipratropium 4 GM Inhalation Spray INH SCH ×6 (01:08→21:22)
[2021-03-31] MEDS: Piperacillin/Tazobactam 4.5 GM in Sodium Chloride 0.9% 100 ML IV SCH ×3 (03:50→18:33)
[2021-03-31] MEDS: VANCOmycin 1.5 GM/300 ML 1.5 GM in Premix Bag 1 BAG IV SCH ×3 (05:46→21:21)
[2021-03-31] MEDS: Dexamethasone 4 MG Tab PO SCH (09:20)
[2021-03-31] MEDS: Pantoprazole 40 MG Tab.CR PO SCH (09:20)
[2021-03-31] MEDS: Acetaminophen 325 MG Tab PO PRN (11:06)
--- NOTE | 2021-03-31 15:23 | PCM.PN ---
- General Info Date of Service: 03/31/21 Subjective Update: The patient is a 35-year-old female, on day 6 of service, with a significant past medical history of hypertension, who was admitted to the medical floor today due to acute respiratory failure secondary to COVID-19 pneumonia. The patient was on heated high flow this morning with O2 flow rate of 50 and FiO2 of 95, however her oxygen demand increased significantly and she had to be transferred over to the intensive care unit and placed on BiPAP. Currently her BiPAP readings are 100% FiO2, respiratory rate of 41, and oxygen saturation of 92%. The patient's sister Maryjo Ramirez was updated on her sister's condition and understood why she had to be transitioned to BiPAP and placed in the ICU. Maryjo asked that from now on that the patient's mother Megan be the direct contact for any updates at the phone #[phone]. Upon interview with the patient today, she is still complaining of shortness of breath and cough upon exertion. She is eating and drinking without any issues. She has no other complaints at this time. - Review of Systems General: Reports: Weakness, Fatigue. Denies: Fever HEENT: Denies: Headaches, Sore Throat Pulmonary: Reports: Shortness of Breath, Cough Cardiovascular: Reports: Dyspnea on Exertion. Denies: Chest Pain, Palpitations Gastrointestinal: Denies: Abdominal Pain Genitourinary: Denies: Dysuria - Patient Data Vitals - Most Recent: Last Vital Signs Temp 100.4 F 03/31/21 11:06 Pulse 81 03/31/21 09:00 Resp 41 H 03/31/21 13:00 BP 144/90 H 03/31/21 13:00 Pulse Ox 92 L 03/31/21 13:00 Weight - Most Recent: 224 lb I&O - Last 24 Hours: Intake & Output 03/31/21 03/31/21 03/31/21 06:59 14:59 22:59 Intake Total 900 400 Output Total 900 Balance 0 400 Daniel Results Last 24 Hours: Microbiology 03/26/21 11:03 Aerobic Blood Culture - Final Blood - Venous - Lab Draw NO GROWTH AFTER 5 DAYS Anaerobic Blood Culture - Final NO GROWTH AFTER 5 DAYS 03/26/21 10:39 Aerobic Blood Culture - Final Blood - Venous NO GROWTH AFTER 5 DAYS Anaerobic Blood Culture - Preliminary 03/26/21 10:39 Blood Culture Identification Panel - Preliminary Blood Staphylococcus Coagulase Neg 03/28/21 05:30 Aerobic Blood Culture - Preliminary Blood - Venous - Lab Draw NO GROWTH AFTER 3 DAYS Anaerobic Blood Culture - Preliminary NO GROWTH AFTER 3 DAYS 03/28/21 05:20 Aerobic Blood Culture - Preliminary Blood - Venous NO GROWTH AFTER 3 DAYS Anaerobic Blood Culture - Preliminary NO GROWTH AFTER 3 DAYS Med Orders - Current: Current Medications Acetaminophen (Acetaminophen 325 Mg Tab) 650 mg PO Q6H PRN PRN Reason: Pain/Fever Last Admin: 03/31/21 11:06 Dose: 650 mg Documented by: Albuterol/Ipratropium (Albuterol/Ipratropium 4 Gm Inhalation [place]) 0 gm INH Q4HRRT [facility] Last Admin: 03/31/21 13:40 Dose: 1 puff Documented by: Baricitinib (Baricitinib 2 Mg Tab) 4 mg PO DAILY [facility] Last Admin: 03/31/21 09:17 Dose: 4 mg Documented by: Dexamethasone (Dexamethasone 4 Mg Tab) 6 mg PO DAILY [facility] Last Admin: 03/31/21 09:20 Dose: 6 mg Documented by: Enoxaparin Sodium (Enoxaparin 40 Mg/0.4 Ml Syringe) 40 mg SUBCUT Q24H [facility] Last Admin: 03/30/21 17:00 Dose: 40 mg Documented by: Guaifenesin/Codeine Phosphate (Codeine/Guaifenesin 10-100 Mg/5 Ml Syrup 5 Ml Cup) 5 ml PO Q4H PRN PRN Reason: Cough Last Admin: 03/30/21 21:29 Dose: 5 ml Documented by: Piperacillin Sod/Tazobactam (Sod 4.5 gm/ Sodium Chloride) 100 mls @ 100 mls/hr IV Q8H [facility] Last Admin: 03/31/21 11:04 Dose: 100 mls/hr Documented by: Vancomycin HCl 1.5 gm/ Premix 300 mls @ 200 mls/hr IV Q8H [facility] Last Admin: 03/31/21 13:02 Dose: 200 mls/hr Documented by: Ondansetron HCl (Ondansetron 4 Mg/2 Ml Sdv) 4 mg IVPUSH Q6H PRN PRN Reason: Nausea/Vomiting Pantoprazole Sodium (Pantoprazole 40 Mg Tab.Cr) 40 mg PO DAILY [facility] Last Admin: 03/31/21 09:20 Dose: 40 mg Documented by: Ramipril (Ramipril 10 Mg Cap) 10 mg PO DAILY [facility] Last Admin: 03/31/21 09:17 Dose: 10 mg Documented by: Sodium Chloride (Sodium Chloride 0.9% 10 Ml Syringe) 10 ml FLUSH ASDIRECTED PRN PRN Reason: Keep Vein Open Last Admin: 03/26/21 10:51 Dose: 10 ml Documented by: Sodium Chloride (Sodium Chloride 0.9% 2.5 Ml Syringe) 2.5 ml FLUSH ASDIRECTED PRN PRN Reason: Keep Vein Open Last Admin: 03/26/21 10:51 Dose: 2.5 ml Documented by: Vancomycin HCl (Pharmacy To Dose - Vancomycin) 1 dose .XX ASDIRECTED [facility] Discontinued Medications Acetaminophen (Acetaminophen 325 Mg Tab) 650 mg PO NOW ONE Stop: 03/26/21 10:45 Last Admin: 03/26/21 10:50 Dose: 650 mg Documented by: Albuterol/Ipratropium (Albuterol/Ipratropium 4 Gm Inhalation [place]) 1 gm INH Q4HRRT PRN PRN Reason: Dyspnea Baricitinib (Baricitinib 2 Mg Tab) 4 mg PO DAILY [facility] Last Admin: 03/29/21 08:19 Dose: 4 mg Documented by: Guaifenesin/Dextromethorphan (Guaifenesin/Dextromethorphan 100-10 Mg/5 Ml Soln 10 Ml Cup) 10 ml PO Q4H PRN PRN Reason: Cough Last Admin: 03/27/21 09:24 Dose: 10 ml Documented by: Sodium Chloride (Normal Saline) 1,000 mls @ 999 mls/hr IV .BOLUS ONE Stop: 03/26/21 11:44 Last Admin: 03/26/21 10:51 Dose: 999 mls/hr Documented by: Remdesivir 200 mg/ Sodium (Chloride) 250 mls @ 250 mls/hr IV ONETIME ONE Stop: 03/26/21 13:29 Last Admin: 03/26/21 12:44 Dose: 250 mls/hr Documented by: Remdesivir 100 mg/ Sodium (Chloride) 100 mls @ 100 mls/hr IV Q24H [facility] Stop: 03/30/21 14:29 Last Admin: 03/30/21 12:35 Dose: 100 mls/hr Documented by: Levofloxacin/Dextrose 750 mg/ (Premix) 150 mls @ 100 mls/hr IV Q24H [facility] Last Admin: 03/26/21 22:45 Dose: 100 mls/hr Documented by: Vancomycin HCl 1.5 gm/ Premix 300 mls @ 200 mls/hr IV Q8H [facility] Last Admin: 03/29/21 05:02 Dose: 200 mls/hr Documented by: Ketorolac Tromethamine (Ketorolac 30 Mg/Ml Sdv) 30 mg IVPUSH ONETIME ONE Stop: 03/26/21 10:45 Last Admin: 03/26/21 10:50 Dose: 30 mg Documented by: Ondansetron HCl (Ondansetron 4 Mg/2 Ml Sdv) 4 mg IVPUSH ONETIME ONE Stop: 03/26/21 10:45 Last Admin: 03/26/21 10:50 Dose: 4 mg Documented by: Potassium Chloride (Potassium Chloride 20 Meq Tab.Er) 40 meq PO ONETIME ONE Stop: 03/26/21 20:01 Last Admin: 03/26/21 21:20 Dose: 40 meq Documented by: Ramipril (Ramipril 10 Mg Cap) 10 mg PO ONETIME ONE Stop: 03/26/21 21:16 Last Admin: 03/26/21 21:20 Dose: 10 mg Documented by: - Exam General: Alert, Oriented, Cooperative HEENT: Other (Dry mucous membranes) Neck: Trachea Midline Lungs: Other (Tachypnea) Cardiovascular: Regular Rate, Regular Rhythm, No Murmurs GI/Abdominal Exam: Normal Bowel Sounds, Soft, Non-Tender - Patient Data Result Diagrams: 03/30/21 06:05 03/30/21 06:05 Daniel Results Last 24 hrs: Microbiology 03/26/21 11:03 Aerobic Blood Culture - Final Blood - Venous - Lab Draw NO GROWTH AFTER 5 DAYS Anaerobic Blood Culture - Final NO GROWTH AFTER 5 DAYS 03/26/21 10:39 Aerobic Blood Culture - Final Blood - Venous NO GROWTH AFTER 5 DAYS Anaerobic Blood Culture - Preliminary 03/26/21 10:39 Blood Culture Identification Panel - Preliminary Blood Staphylococcus Coagulase Neg 03/28/21 05:30 Aerobic Blood Culture - Preliminary Blood - Venous - Lab Draw NO GROWTH AFTER 3 DAYS Anaerobic Blood Culture - Preliminary NO GROWTH AFTER 3 DAYS 03/28/21 05:20 Aerobic Blood Culture - Preliminary Blood - Venous NO GROWTH AFTER 3 DAYS Anaerobic Blood Culture - Preliminary NO GROWTH AFTER 3 DAYS Sepsis Event Note - Evaluation Sepsis Screening Result: No Definite Risk - Focused Exam Vital Signs: Vital Signs Temp Temp Temp Pulse Resp BP BP 03/31/21 13:00 41 H 144/90 H 03/31/21 12:00 33 H 154/83 H 03/31/21 11:06 100.4 F 03/31/21 11:00 36 H 157/94 H 03/31/21 10:25 100.4 F 37 H 148/87 H 03/31/21 09:17 152/85 H 03/31/21 09:00 98.6 F 81 30 H 152/85 H 03/31/21 03:59 97.7 F 60 30 H 164/89 H Pulse Ox 03/31/21 13:00 92 L 03/31/21 12:00 93 L 03/31/21 11:06 03/31/21 11:00 92 L 03/31/21 10:25 95 03/31/21 09:17 03/31/21 09:00 90 L 03/31/21 03:59 89 L - Problem List & Annotations (1) Hypertension SNOMED Code(s): 33469594 Code(s): I10 - ESSENTIAL (PRIMARY) HYPERTENSION Status: Acute Current Visit: Yes (2) Pneumonia due to COVID-19 virus SNOMED Code(s): 313114920000282979 Code(s): U07.1 - COVID-19; J12.82 - PNEUMONIA DUE TO CORONAVIRUS DISEASE 2019 Status: Acute Current Visit: Yes (3) COVID-19 SNOMED Code(s): 010716102 Code(s): U07.1 - COVID-19 Status: Acute Current Visit: No (4) Hypoxia SNOMED Code(s): 528278604 Code(s): R09.02 - HYPOXEMIA Status: Acute Current Visit: No (5) Bacteremia SNOMED Code(s): 1079011 Code(s): R78.81 - BACTEREMIA Status: Acute Current Visit: Yes - Problem List Review Problem List Initiated/Reviewed/Updated: Yes - My Orders Last 24 Hours: My Active Orders 03/31/21 09:33 Transfer Patient (Change bed) [ADT] Routine 04/01/21 05:11 CBC WITH AUTO DIFF [HEME] AM CMP [COMPREHENSIVE METABOLIC PN,CMP] [CHEM] AM 04/02/21 05:11 CBC WITH AUTO DIFF [HEME] AM CMP [COMPREHENSIVE METABOLIC PN,CMP] [CHEM] AM 04/03/21 05:11 CBC WITH AUTO DIFF [HEME] AM CMP [COMPREHENSIVE METABOLIC PN,CMP] [CHEM] AM 04/04/21 05:11 CBC WITH AUTO DIFF [HEME] AM CMP [COMPREHENSIVE METABOLIC PN,CMP] [CHEM] AM 04/05/21 05:11 CBC WITH AUTO DIFF [HEME] AM CMP [COMPREHENSIVE METABOLIC PN,CMP] [CHEM] AM - Plan Plan:: 1. Acute hypoxic respiratory failure secondary to COVID-19 pneumonia -The patient has been transferred to the ICU and is on BiPAP -Continue the patient on dexamethasone 6 mg per oral route once a day -Continue with baricitinib 4 mg per oral route once a day -For nausea continue with Zofran as needed -For shortness of breath, continue Combivent therapy -Incentive spirometry in the prone position -For cough, continue Robitussin as needed 2. Bacteremia -Continue Zosyn 4.5 g per IV route every 8 hours and Vancomycin 1.5 g per IV route every 8 hours 3. Hypertension -Continue ramipril
[2021-03-31] MEDS: Enoxaparin 40 MG/0.4 ML Syringe SUBCUT SCH (17:26)
[2021-04-01] MEDS: Albuterol/Ipratropium 4 GM Inhalation Spray INH SCH ×6 (02:01→21:32)
[2021-04-01] MEDS: Codeine/guaiFENesin 10-100 MG/5 ML Syrup 5 ML Cup PO PRN (02:03)
[2021-04-01] MEDS: Piperacillin/Tazobactam 4.5 GM in Sodium Chloride 0.9% 100 ML IV SCH ×3 (03:13→18:09)
[2021-04-01] MEDS: VANCOmycin 1.5 GM/300 ML 1.5 GM in Premix Bag 1 BAG IV SCH ×3 (04:47→20:58)
[2021-04-01 07:58] LABS: BLOOD UREA NITROGEN,BUN 18 mg/dL (7.0-18.0); CARBON DIOXIDE,CO2 27.3 mmol/L (21.0-32.0); CHLORIDE,CL 104 mmol/L (98-107); GLUCOSE RANDOM 92 mg/dL (74-106); SODIUM,NA 143 mmol/L (136-145)
[2021-04-01] MEDS: Pantoprazole 40 MG Tab.CR PO SCH (09:53)
[2021-04-01] MEDS: Dexamethasone 4 MG Tab PO SCH (09:53)
--- NOTE | 2021-04-01 11:01 | PCM.PN ---
- General Info Date of Service: 04/01/21 Subjective Update: The patient is a 35-year-old female, on day 7 of service, with a significant past medical history of hypertension, who was admitted to the medical floor today due to acute respiratory failure secondary to COVID-19 pneumonia. The patient is currently on heated high flow with a O2 flow rate of 55 and FiO2 of 85, and saturating at 92%. This morning when seen she was sleeping in the prone position comfortably. Upon awakening she was complaining of dryness of her throat and it was explained to her that this is a common finding in patients that are on oxygen apparatuses. She is still complaining of shortness of breath and cough upon exertion. She is eating and drinking without any issues. She has no other complaints at this time. - Review of Systems General: Reports: Fatigue. Denies: Chills HEENT: Reports: Other (Dry throat). Denies: Headaches Pulmonary: Reports: Shortness of Breath, Cough Cardiovascular: Reports: Dyspnea on Exertion. Denies: Chest Pain, Palpitations Gastrointestinal: Denies: Abdominal Pain, Nausea, Vomiting Genitourinary: Denies: Dysuria - Patient Data Vitals - Most Recent: Last Vital Signs Temp 98.4 F 04/01/21 09:00 Pulse 81 03/31/21 09:00 Resp 22 H 04/01/21 09:00 BP 148/70 H 04/01/21 09:57 Pulse Ox 92 L 04/01/21 09:00 Weight - Most Recent: 224 lb I&O - Last 24 Hours: Intake & Output 03/31/21 04/01/21 04/01/21 22:59 06:59 14:59 Intake Total 860 800 Output Total 900 850 Balance -40 -50 Lab Results Last 24 Hours: Laboratory Results - last 24 hr 04/01/21 04/01/21 Range/Units 05:51 05:51 WBC 10.22 (4.0-11.0) K/uL RBC 4.22 L (4.30-5.90) M/uL Hgb 12.4 (12.0-16.0) g/dL Hct 37.0 (36.0-46.0) % MCV 87.7 (80.0-98.0) fL MCH 29.4 (27.0-32.0) pg MCHC 33.5 (31.0-37.0) g/dL RDW Std Deviation 40.8 (28.0-62.0) fl RDW Coeff of Zulma 13 (11.0-15.0) % Plt Count 482 H (150-400) K/uL MPV 10.60 (7.40-12.00) fL Neut % (Auto) 86.1 H (48.0-80.0) % Lymph % (Auto) 7.0 L (16.0-40.0) % [place] % (Auto) 6.6 (0.0-15.0) % Eos % (Auto) 0.2 (0.0-7.0) % Baso % (Auto) 0.1 (0.0-1.5) % Neut # (Auto) 8.8 H (1.4-5.7) K/uL Lymph # (Auto) 0.7 (0.6-2.4) K/uL [place] # (Auto) 0.7 (0.0-0.8) K/uL Eos # (Auto) 0.0 (0.0-0.7) K/uL Baso # (Auto) 0.0 (0.0-0.1) K/uL Nucleated RBC % 0.0 /100WBC Nucleated RBCs # 0 K/uL Sodium 143 (136-145) mmol/L Potassium 4.0 (3.5-5.1) mmol/L Chloride 104 (98-107) mmol/L Carbon Dioxide 27.3 (21.0-32.0) mmol/L BUN 18 (7.0-18.0) mg/dL Creatinine 0.9 (0.6-1.0) mg/dL Est Cr Clr Drug Dosing 77.76 mL/min Estimated GFR (MDRD) > 60.0 ml/min Glucose 92 (74-106) mg/dL Calcium 7.8 L (8.5-10.1) mg/dL Total Bilirubin 0.8 (0.2-1.0) mg/dL AST 26 (15-37) IU/L ALT 59 (14-63) IU/L Alkaline Phosphatase 70 (46-116) U/L Total Protein 6.1 L (6.4-8.2) g/dL Albumin 2.1 L (3.4-5.0) g/dL Globulin 4.0 (2.6-4.0) g/dL Albumin/Globulin Ratio 0.5 L (0.9-1.6) Daniel Results Last 24 Hours: Microbiology 03/26/21 10:39 Blood Culture Identification Panel - Final Blood Staphylococcus Coagulase Neg 03/28/21 05:30 Aerobic Blood Culture - Preliminary Blood - Venous - Lab Draw NO GROWTH AFTER 4 DAYS Anaerobic Blood Culture - Preliminary NO GROWTH AFTER 4 DAYS 03/28/21 05:20 Aerobic Blood Culture - Preliminary Blood - Venous NO GROWTH AFTER 4 DAYS Anaerobic Blood Culture - Preliminary NO GROWTH AFTER 4 DAYS 03/26/21 11:03 Aerobic Blood Culture - Final Blood - Venous - Lab Draw NO GROWTH AFTER 5 DAYS Anaerobic Blood Culture - Final NO GROWTH AFTER 5 DAYS 03/26/21 10:39 Aerobic Blood Culture - Final Blood - Venous NO GROWTH AFTER 5 DAYS Anaerobic Blood Culture - Preliminary Med Orders - Current: Current Medications Acetaminophen (Acetaminophen 325 Mg Tab) 650 mg PO Q6H PRN PRN Reason: Pain/Fever Last Admin: 03/31/21 11:06 Dose: 650 mg Documented by: Albuterol/Ipratropium (Albuterol/Ipratropium 4 Gm Inhalation [place]) 0 gm INH Q4HRRT [facility] Last Admin: 04/01/21 09:45 Dose: 1 puff Documented by: Baricitinib (Baricitinib 2 Mg Tab) 4 mg PO DAILY [facility] Last Admin: 04/01/21 09:56 Dose: 4 mg Documented by: Dexamethasone (Dexamethasone 4 Mg Tab) 6 mg PO DAILY [facility] Last Admin: 04/01/21 09:53 Dose: 6 mg Documented by: Enoxaparin Sodium (Enoxaparin 40 Mg/0.4 Ml Syringe) 40 mg SUBCUT Q24H [facility] Last Admin: 03/31/21 17:26 Dose: 40 mg Documented by: Guaifenesin/Codeine Phosphate (Codeine/Guaifenesin 10-100 Mg/5 Ml Syrup 5 Ml Cup) 5 ml PO Q4H PRN PRN Reason: Cough Last Admin: 04/01/21 02:03 Dose: 5 ml Documented by: Piperacillin Sod/Tazobactam (Sod 4.5 gm/ Sodium Chloride) 100 mls @ 100 mls/hr IV Q8H [facility] Last Admin: 04/01/21 03:13 Dose: 100 mls/hr Documented by: Vancomycin HCl 1.5 gm/ Premix 300 mls @ 200 mls/hr IV Q8H [facility] Last Admin: 04/01/21 04:47 Dose: 200 mls/hr Documented by: Ondansetron HCl (Ondansetron 4 Mg/2 Ml Sdv) 4 mg IVPUSH Q6H PRN PRN Reason: Nausea/Vomiting Pantoprazole Sodium (Pantoprazole 40 Mg Tab.Cr) 40 mg PO DAILY [facility] Last Admin: 04/01/21 09:53 Dose: 40 mg Documented by: Ramipril (Ramipril 10 Mg Cap) 10 mg PO DAILY [facility] Last Admin: 04/01/21 09:57 Dose: 10 mg Documented by: Sodium Chloride (Sodium Chloride 0.9% 10 Ml Syringe) 10 ml FLUSH ASDIRECTED PRN PRN Reason: Keep Vein Open Last Admin: 03/26/21 10:51 Dose: 10 ml Documented by: Sodium Chloride (Sodium Chloride 0.9% 2.5 Ml Syringe) 2.5 ml FLUSH ASDIRECTED PRN PRN Reason: Keep Vein Open Last Admin: 03/26/21 10:51 Dose: 2.5 ml Documented by: Vancomycin HCl (Pharmacy To Dose - Vancomycin) 1 dose .XX ASDIRECTED DUYEN Discontinued Medications Acetaminophen (Acetaminophen 325 Mg Tab) 650 mg PO NOW ONE Stop: 03/26/21 10:45 Last Admin: 03/26/21 10:50 Dose: 650 mg Documented by: Albuterol/Ipratropium (Albuterol/Ipratropium 4 Gm Inhalation [place]) 1 gm INH Q4HRRT PRN PRN Reason: Dyspnea Baricitinib (Baricitinib 2 Mg Tab) 4 mg PO DAILY [facility] Last Admin: 03/29/21 08:19 Dose: 4 mg Documented by: Guaifenesin/Dextromethorphan (Guaifenesin/Dextromethorphan 100-10 Mg/5 Ml Soln 1 0 Ml Cup) 10 ml PO Q4H PRN PRN Reason: Cough Last Admin: 03/27/21 09:24 Dose: 10 ml Documented by: Sodium Chloride (Normal Saline) 1,000 mls @ 999 mls/hr IV .BOLUS ONE Stop: 03/26/21 11:44 Last Admin: 03/26/21 10:51 Dose: 999 mls/hr Documented by: Remdesivir 200 mg/ Sodium (Chloride) 250 mls @ 250 mls/hr IV ONETIME ONE Stop: 03/26/21 13:29 Last Admin: 03/26/21 12:44 Dose: 250 mls/hr Documented by: Remdesivir 100 mg/ Sodium (Chloride) 100 mls @ 100 mls/hr IV Q24H [facility] Stop: 03/30/21 14:29 Last Admin: 03/30/21 12:35 Dose: 100 mls/hr Documented by: Levofloxacin/Dextrose 750 mg/ (Premix) 150 mls @ 100 mls/hr IV Q24H [facility] Last Admin: 03/26/21 22:45 Dose: 100 mls/hr Documented by: Vancomycin HCl 1.5 gm/ Premix 300 mls @ 200 mls/hr IV Q8H [facility] Last Admin: 03/29/21 05:02 Dose: 200 mls/hr Documented by: Ketorolac Tromethamine (Ketorolac 30 Mg/Ml Sdv) 30 mg IVPUSH ONETIME ONE Stop: 03/26/21 10:45 Last Admin: 03/26/21 10:50 Dose: 30 mg Documented by: Ondansetron HCl (Ondansetron 4 Mg/2 Ml Sdv) 4 mg IVPUSH ONETIME ONE Stop: 03/26/21 10:45 Last Admin: 03/26/21 10:50 Dose: 4 mg Documented by: Potassium Chloride (Potassium Chloride 20 Meq Tab.Er) 40 meq PO ONETIME ONE Stop: 03/26/21 20:01 Last Admin: 03/26/21 21:20 Dose: 40 meq Documented by: Ramipril (Ramipril 10 Mg Cap) 10 mg PO ONETIME ONE Stop: 03/26/21 21:16 Last Admin: 03/26/21 21:20 Dose: 10 mg Documented by: - Exam General: Alert, Oriented, Cooperative, Lethargic HEENT: Other (Dry mucous membranes) Neck: Trachea Midline Lungs: Clear to Auscultation, Other (Tachypnea) Cardiovascular: Regular Rate, Regular Rhythm, No Murmurs GI/Abdominal Exam: Normal Bowel Sounds, Soft, Non-Tender, No Organomegaly - Patient Data Lab Results Last 24 hrs: Laboratory Results - last 24 hr 04/01/21 04/01/21 Range/Units 05:51 05:51 WBC 10.22 (4.0-11.0) K/uL RBC 4.22 L (4.30-5.90) M/uL Hgb 12.4 (12.0-16.0) g/dL Hct 37.0 (36.0-46.0) % MCV 87.7 (80.0-98.0) fL MCH 29.4 (27.0-32.0) pg MCHC 33.5 (31.0-37.0) g/dL RDW Std Deviation 40.8 (28.0-62.0) fl RDW Coeff of Zulma 13 (11.0-15.0) % Plt Count 482 H (150-400) K/uL MPV 10.60 (7.40-12.00) fL Neut % (Auto) 86.1 H (48.0-80.0) % Lymph % (Auto) 7.0 L (16.0-40.0) % [place]houn % (Auto) 6.6 (0.0-15.0) % Eos % (Auto) 0.2 (0.0-7.0) % Baso % (Auto) 0.1 (0.0-1.5) % Neut # (Auto) 8.8 H (1.4-5.7) K/uL Lymph # (Auto) 0.7 (0.6-2.4) K/uL [place] # (Auto) 0.7 (0.0-0.8) K/uL Eos # (Auto) 0.0 (0.0-0.7) K/uL Baso # (Auto) 0.0 (0.0-0.1) K/uL Nucleated RBC % 0.0 /100WBC Nucleated RBCs # 0 K/uL Sodium 143 (136-145) mmol/L Potassium 4.0 (3.5-5.1) mmol/L Chloride 104 (98-107) mmol/L Carbon Dioxide 27.3 (21.0-32.0) mmol/L BUN 18 (7.0-18.0) mg/dL Creatinine 0.9 (0.6-1.0) mg/dL Est Cr Clr Drug Dosing 77.76 mL/min Estimated GFR (MDRD) > 60.0 ml/min Glucose 92 (74-106) mg/dL Calcium 7.8 L (8.5-10.1) mg/dL Total Bilirubin 0.8 (0.2-1.0) mg/dL AST 26 (15-37) IU/L ALT 59 (14-63) IU/L Alkaline Phosphatase 70 (46-116) U/L Total Protein 6.1 L (6.4-8.2) g/dL Albumin 2.1 L (3.4-5.0) g/dL Globulin 4.0 (2.6-4.0) g/dL Albumin/Globulin Ratio 0.5 L (0.9-1.6) Result Diagrams: 04/01/21 05:51 04/01/21 05:51 Daniel Results Last 24 hrs: Microbiology 03/26/21 10:39 Blood Culture Identification Panel - Final Blood Staphylococcus Coagulase Neg 03/28/21 05:30 Aerobic Blood Culture - Preliminary Blood - Venous - Lab Draw NO GROWTH AFTER 4 DAYS Anaerobic Blood Culture - Preliminary NO GROWTH AFTER 4 DAYS 03/28/21 05:20 Aerobic Blood Culture - Preliminary Blood - Venous NO GROWTH AFTER 4 DAYS Anaerobic Blood Culture - Preliminary NO GROWTH AFTER 4 DAYS 03/26/21 11:03 Aerobic Blood Culture - Final Blood - Venous - Lab Draw NO GROWTH AFTER 5 DAYS Anaerobic Blood Culture - Final NO GROWTH AFTER 5 DAYS 03/26/21 10:39 Aerobic Blood Culture - Final Blood - Venous NO GROWTH AFTER 5 DAYS Anaerobic Blood Culture - Preliminary Sepsis Event Note - Evaluation Sepsis Screening Result: No Definite Risk - Focused Exam Vital Signs: Vital Signs Temp Resp BP BP Pulse Ox 04/01/21 09:57 148/70 H 04/01/21 09:00 98.4 F 22 H 156/87 H 92 L 04/01/21 08:00 35 H 155/83 H 92 L 04/01/21 07:00 32 H 154/80 H 93 L 04/01/21 06:00 32 H 138/90 92 L 04/01/21 05:00 30 H 148/81 H 90 L 04/01/21 04:00 97.7 F 32 H 154/88 H 92 L 04/01/21 03:00 25 H 143/85 H 90 L 04/01/21 02:00 32 H 144/82 H 90 L 04/01/21 01:00 36 H 152/79 H 92 L 04/01/21 00:00 98.2 F 31 H 148/71 H 90 L 03/31/21 23:00 32 H 92 L - Problem List & Annotations (1) Hypertension SNOMED Code(s): 61345699 Code(s): I10 - ESSENTIAL (PRIMARY) HYPERTENSION Status: Acute Current Visit: Yes (2) Pneumonia due to COVID-19 virus SNOMED Code(s): 122384995317348958 Code(s): U07.1 - COVID-19; J12.82 - PNEUMONIA DUE TO CORONAVIRUS DISEASE 2019 Status: Acute Current Visit: Yes (3) COVID-19 SNOMED Code(s): 911988058 Code(s): U07.1 - COVID-19 Status: Acute Current Visit: No (4) Hypoxia SNOMED Code(s): 031313462 Code(s): R09.02 - HYPOXEMIA Status: Acute Current Visit: No (5) Bacteremia SNOMED Code(s): 1436324 Code(s): R78.81 - BACTEREMIA Status: Acute Current Visit: Yes - Problem List Review Problem List Initiated/Reviewed/Updated: Yes - My Orders Last 24 Hours: My Active Orders 04/02/21 05:11 CBC WITH AUTO DIFF [HEME] AM CMP [COMPREHENSIVE METABOLIC PN,CMP] [CHEM] AM 04/03/21 05:11 CBC WITH AUTO DIFF [HEME] AM CMP [COMPREHENSIVE METABOLIC PN,CMP] [CHEM] AM 04/04/21 05:11 CBC WITH AUTO DIFF [HEME] AM CMP [COMPREHENSIVE METABOLIC PN,CMP] [CHEM] AM 04/05/21 05:11 CBC WITH AUTO DIFF [HEME] AM CMP [COMPREHENSIVE METABOLIC PN,CMP] [CHEM] AM - Plan Plan:: 1. Acute hypoxic respiratory failure secondary to COVID-19 pneumonia -Continue dexamethasone 6 mg per oral route once a day -Continue baricitinib 4 mg per oral route once a day -Continue with Zofran as needed -Continue Combivent therapy -Incentive spirometry in the prone position -Continue Robitussin as needed 2. Bacteremia -Continue Zosyn 4.5 g per IV route every 8 hours and Vancomycin 1.5 g per IV route every 8 hours -Monitor daily CBC/CMP 3. Hypertension -Continue ramipril
[2021-04-01] MEDS: Acetaminophen 325 MG Tab PO PRN (11:08)
[2021-04-01] MEDS: Enoxaparin 40 MG/0.4 ML Syringe SUBCUT SCH (17:09)
[2021-04-02] MEDS: Albuterol/Ipratropium 4 GM Inhalation Spray INH SCH ×6 (02:13→21:39)
[2021-04-02] MEDS: Piperacillin/Tazobactam 4.5 GM in Sodium Chloride 0.9% 100 ML IV SCH ×3 (02:47→18:09)
[2021-04-02] MEDS: VANCOmycin 1.5 GM/300 ML 1.5 GM in Premix Bag 1 BAG IV SCH ×2 (04:53→13:42)
[2021-04-02 07:02] LABS: BLOOD UREA NITROGEN,BUN 20 mg/dL (7.0-18.0); CARBON DIOXIDE,CO2 28.6 mmol/L (21.0-32.0); CHLORIDE,CL 104 mmol/L (98-107); GLUCOSE RANDOM 86 mg/dL (74-106); POTASSIUM,K 4.2 mmol/L (3.5-5.1); SODIUM,NA 142 mmol/L (136-145)
[2021-04-02] MEDS: Dexamethasone 4 MG Tab PO SCH (09:49)
[2021-04-02] MEDS: Pantoprazole 40 MG Tab.CR PO SCH (09:51)
[2021-04-02] MEDS: Acetaminophen 325 MG Tab PO PRN (09:51)
--- NOTE | 2021-04-02 15:51 | PCM.PN ---
- General Info Date of Service: 04/02/21 Subjective Update: The patient is a 35-year-old female, on day 8 of service, with a significant past medical history of hypertension, who was admitted to the medical floor today due to acute respiratory failure secondary to COVID-19 pneumonia. The patient is currently on heated high flow with a O2 flow rate of 50 and FiO2 of 65, and saturating at 92%. Nursing staff did express that when this patient ambulates her oxygen saturation goes between 84 and 86%. However when this happens she does not complain of any dyspnea. This morning when seen the patient was sleeping comfortably. Upon awakening she admitted that she is feeling much better and wants to start using the incentive spirometry apparatus. She also expressed that her shortness of breath and cough upon exertion have significantly decreased. She has no issues with urination and/or defecation and admits that she is eating and drinking well. She has no other complaints at this time. - Review of Systems General: Denies: Fever, Fatigue HEENT: Denies: Headaches, Sore Throat Pulmonary: Reports: Shortness of Breath, Cough Cardiovascular: Denies: Chest Pain, Palpitations Gastrointestinal: Denies: Abdominal Pain Genitourinary: Denies: Dysuria - Patient Data Vitals - Most Recent: Last Vital Signs Temp 98.2 F 04/02/21 12:00 Pulse 81 03/31/21 09:00 Resp 18 04/02/21 15:00 BP 143/89 H 04/02/21 15:00 Pulse Ox 92 L 04/02/21 15:00 Weight - Most Recent: 223 lb 10.755 oz I&O - Last 24 Hours: Intake & Output 04/02/21 04/02/21 04/02/21 06:59 14:59 22:59 Intake Total 450 Output Total 950 Balance -500 Lab Results Last 24 Hours: Laboratory Results - last 24 hr 04/02/21 04/02/21 04/02/21 Range/Units 05:19 05:19 12:32 WBC 9.94 (4.0-11.0) K/uL RBC 4.33 (4.30-5.90) M/uL Hgb 12.6 (12.0-16.0) g/dL Hct 38.3 (36.0-46.0) % MCV 88.5 (80.0-98.0) fL MCH 29.1 (27.0-32.0) pg MCHC 32.9 (31.0-37.0) g/dL RDW Std Deviation 40.9 (28.0-62.0) fl RDW Coeff of Zulma 13 (11.0-15.0) % Plt Count 599 H (150-400) K/uL MPV 10.80 (7.40-12.00) fL Neut % (Auto) 85.8 H (48.0-80.0) % Lymph % (Auto) 7.9 L (16.0-40.0) % Piatt % (Auto) 5.9 (0.0-15.0) % Eos % (Auto) 0.4 (0.0-7.0) % Baso % (Auto) 0.0 (0.0-1.5) % Neut # (Auto) 8.5 H (1.4-5.7) K/uL Lymph # (Auto) 0.8 (0.6-2.4) K/uL Piatt # (Auto) 0.6 (0.0-0.8) K/uL Eos # (Auto) 0.0 (0.0-0.7) K/uL Baso # (Auto) 0.0 (0.0-0.1) K/uL Nucleated RBC % 0.0 /100WBC Nucleated RBCs # 0 K/uL Sodium 142 (136-145) mmol/L Potassium 4.2 (3.5-5.1) mmol/L Chloride 104 (98-107) mmol/L Carbon Dioxide 28.6 (21.0-32.0) mmol/L BUN 20 H (7.0-18.0) mg/dL Creatinine 0.9 (0.6-1.0) mg/dL Est Cr Clr Drug Dosing 77.76 mL/min Estimated GFR (MDRD) > 60.0 ml/min Glucose 86 (74-106) mg/dL Calcium 8.2 L (8.5-10.1) mg/dL Total Bilirubin 0.8 (0.2-1.0) mg/dL AST 30 (15-37) IU/L ALT 71 H (14-63) IU/L Alkaline Phosphatase 75 (46-116) U/L Total Protein 6.4 (6.4-8.2) g/dL Albumin 2.2 L (3.4-5.0) g/dL Globulin 4.2 H (2.6-4.0) g/dL Albumin/Globulin Ratio 0.5 L (0.9-1.6) Vancomycin Trough 21.4 H (5.0-10.0) ug/mL Daniel Results Last 24 Hours: Microbiology 03/28/21 05:30 Aerobic Blood Culture - Final Blood - Venous - Lab Draw NO GROWTH AFTER 5 DAYS Anaerobic Blood Culture - Final NO GROWTH AFTER 5 DAYS 03/28/21 05:20 Aerobic Blood Culture - Final Blood - Venous NO GROWTH AFTER 5 DAYS Anaerobic Blood Culture - Final NO GROWTH AFTER 5 DAYS Med Orders - Current: Current Medications Acetaminophen (Acetaminophen 325 Mg Tab) 650 mg PO Q6H PRN PRN Reason: Pain/Fever Last Admin: 04/02/21 09:51 Dose: 650 mg Documented by: Albuterol/Ipratropium (Albuterol/Ipratropium 4 Gm Inhalation [place]) 0 gm INH Q4HRRT [facility] Last Admin: 04/02/21 14:47 Dose: 1 puff Documented by: Baricitinib (Baricitinib 2 Mg Tab) 4 mg PO DAILY [facility] Last Admin: 04/02/21 09:50 Dose: 4 mg Documented by: Dexamethasone (Dexamethasone 4 Mg Tab) 6 mg PO DAILY [facility] Last Admin: 04/02/21 09:49 Dose: 6 mg Documented by: Enoxaparin Sodium (Enoxaparin 40 Mg/0.4 Ml Syringe) 40 mg SUBCUT Q24H [facility] Last Admin: 04/01/21 17:09 Dose: 40 mg Documented by: Guaifenesin/Codeine Phosphate (Codeine/Guaifenesin 10-100 Mg/5 Ml Syrup 5 Ml Cup) 5 ml PO Q4H PRN PRN Reason: Cough Last Admin: 04/01/21 02:03 Dose: 5 ml Documented by: Piperacillin Sod/Tazobactam (Sod 4.5 gm/ Sodium Chloride) 100 mls @ 100 mls/hr IV Q8H [facility] Last Admin: 04/02/21 10:18 Dose: 100 mls/hr Documented by: Vancomycin HCl 1.25 gm/ Sodium (Chloride) 250 mls @ 166.667 mls/hr IV Q8H [facility] Last Admin: 04/02/21 13:45 Dose: 166.667 mls/hr Documented by: Ondansetron HCl (Ondansetron 4 Mg/2 Ml Sdv) 4 mg IVPUSH Q6H PRN PRN Reason: Nausea/Vomiting Pantoprazole Sodium (Pantoprazole 40 Mg Tab.Cr) 40 mg PO DAILY [facility] Last Admin: 04/02/21 09:51 Dose: 40 mg Documented by: Ramipril (Ramipril 10 Mg Cap) 10 mg PO DAILY [facility] Last Admin: 04/02/21 09:51 Dose: 10 mg Documented by: Sodium Chloride (Sodium Chloride 0.9% 10 Ml Syringe) 10 ml FLUSH ASDIRECTED PRN PRN Reason: Keep Vein Open Last Admin: 03/26/21 10:51 Dose: 10 ml Documented by: Sodium Chloride (Sodium Chloride 0.9% 2.5 Ml Syringe) 2.5 ml FLUSH ASDIRECTED PRN PRN Reason: Keep Vein Open Last Admin: 03/26/21 10:51 Dose: 2.5 ml Documented by: Vancomycin HCl (Pharmacy To Dose - Vancomycin) 1 dose .XX ASDIRECTED DUYEN Discontinued Medications Acetaminophen (Acetaminophen 325 Mg Tab) 650 mg PO NOW ONE Stop: 03/26/21 10:45 Last Admin: 03/26/21 10:50 Dose: 650 mg Documented by: Albuterol/Ipratropium (Albuterol/Ipratropium 4 Gm Inhalation [place]) 1 gm INH Q4HRRT PRN PRN Reason: Dyspnea Baricitinib (Baricitinib 2 Mg Tab) 4 mg PO DAILY [facility] Last Admin: 03/29/21 08:19 Dose: 4 mg Documented by: Guaifenesin/Dextromethorphan (Guaifenesin/Dextromethorphan 100-10 Mg/5 Ml Soln 10 Ml Cup) 10 ml PO Q4H PRN PRN Reason: Cough Last Admin: 03/27/21 09:24 Dose: 10 ml Documented by: Sodium Chloride (Normal Saline) 1,000 mls @ 999 mls/hr IV .BOLUS ONE Stop: 03/26/21 11:44 Last Admin: 03/26/21 10:51 Dose: 999 mls/hr Documented by: Remdesivir 200 mg/ Sodium (Chloride) 250 mls @ 250 mls/hr IV ONETIME ONE Stop: 03/26/21 13:29 Last Admin: 03/26/21 12:44 Dose: 250 mls/hr Documented by: Remdesivir 100 mg/ Sodium (Chloride) 100 mls @ 100 mls/hr IV Q24H [facility] Stop: 03/30/21 14:29 Last Admin: 03/30/21 12:35 Dose: 100 mls/hr Documented by: Levofloxacin/Dextrose 750 mg/ (Premix) 150 mls @ 100 mls/hr IV Q24H [facility] Last Admin: 03/26/21 22:45 Dose: 100 mls/hr Documented by: Vancomycin HCl 1.5 gm/ Premix 300 mls @ 200 mls/hr IV Q8H [facility] Last Admin: 03/29/21 05:02 Dose: 200 mls/hr Documented by: Vancomycin HCl 1.5 gm/ Premix 300 mls @ 200 mls/hr IV Q8H [facility] Last Admin: 04/02/21 13:42 Dose: Not Given Documented by: Ketorolac Tromethamine (Ketorolac 30 Mg/Ml Sdv) 30 mg IVPUSH ONETIME ONE Stop: 03/26/21 10:45 Last Admin: 03/26/21 10:50 Dose: 30 mg Documented by: Ondansetron HCl (Ondansetron 4 Mg/2 Ml Sdv) 4 mg IVPUSH ONETIME ONE Stop: 03/26/21 10:45 Last Admin: 03/26/21 10:50 Dose: 4 mg Documented by: Potassium Chloride (Potassium Chloride 20 Meq Tab.Er) 40 meq PO ONETIME ONE Stop: 03/26/21 20:01 Last Admin: 03/26/21 21:20 Dose: 40 meq Documented by: Ramipril (Ramipril 10 Mg Cap) 10 mg PO ONETIME ONE Stop: 03/26/21 21:16 Last Admin: 03/26/21 21:20 Dose: 10 mg Documented by: - Exam General: Alert, Oriented, Cooperative HEENT: Mucous Membr. Moist/[place] Neck: Trachea Midline Lungs: Clear to Auscultation. No: Rhonchi, Wheezing Cardiovascular: Bradycardia GI/Abdominal Exam: Normal Bowel Sounds, Soft, Non-Tender - Patient Data Lab Results Last 24 hrs: Laboratory Results - last 24 hr 04/02/21 04/02/21 04/02/21 Range/Units 05:19 05:19 12:32 WBC 9.94 (4.0-11.0) K/uL RBC 4.33 (4.30-5.90) M/uL Hgb 12.6 (12.0-16.0) g/dL Hct 38.3 (36.0-46.0) % MCV 88.5 (80.0-98.0) fL MCH 29.1 (27.0-32.0) pg MCHC 32.9 (31.0-37.0) g/dL RDW Std Deviation 40.9 (28.0-62.0) fl RDW Coeff of Zulma 13 (11.0-15.0) % Plt Count 599 H (150-400) K/uL MPV 10.80 (7.40-12.00) fL Neut % (Auto) 85.8 H (48.0-80.0) % Lymph % (Auto) 7.9 L (16.0-40.0) % Piatt % (Auto) 5.9 (0.0-15.0) % Eos % (Auto) 0.4 (0.0-7.0) % Baso % (Auto) 0.0 (0.0-1.5) % Neut # (Auto) 8.5 H (1.4-5.7) K/uL Lymph # (Auto) 0.8 (0.6-2.4) K/uL Piatt # (Auto) 0.6 (0.0-0.8) K/uL Eos # (Auto) 0.0 (0.0-0.7) K/uL Baso # (Auto) 0.0 (0.0-0.1) K/uL Nucleated RBC % 0.0 /100WBC Nucleated RBCs # 0 K/uL Sodium 142 (136-145) mmol/L Potassium 4.2 (3.5-5.1) mmol/L Chloride 104 (98-107) mmol/L Carbon Dioxide 28.6 (21.0-32.0) mmol/L BUN 20 H (7.0-18.0) mg/dL Creatinine 0.9 (0.6-1.0) mg/dL Est Cr Clr Drug Dosing 77.76 mL/min Estimated GFR (MDRD) > 60.0 ml/min Glucose 86 (74-106) mg/dL Calcium 8.2 L (8.5-10.1) mg/dL Total Bilirubin 0.8 (0.2-1.0) mg/dL AST 30 (15-37) IU/L ALT 71 H (14-63) IU/L Alkaline Phosphatase 75 (46-116) U/L Total Protein 6.4 (6.4-8.2) g/dL Albumin 2.2 L (3.4-5.0) g/dL Globulin 4.2 H (2.6-4.0) g/dL Albumin/Globulin Ratio 0.5 L (0.9-1.6) Vancomycin Trough 21.4 H (5.0-10.0) ug/mL Result Diagrams: 04/02/21 05:19 04/02/21 05:19 Daniel Results Last 24 hrs: Microbiology 03/28/21 05:30 Aerobic Blood Culture - Final Blood - Venous - Lab Draw NO GROWTH AFTER 5 DAYS Anaerobic Blood Culture - Final NO GROWTH AFTER 5 DAYS 03/28/21 05:20 Aerobic Blood Culture - Final Blood - Venous NO GROWTH AFTER 5 DAYS Anaerobic Blood Culture - Final NO GROWTH AFTER 5 DAYS Sepsis Event Note - Evaluation Sepsis Screening Result: No Definite Risk - Focused Exam Vital Signs: Vital Signs Temp Resp BP BP Pulse Ox 04/02/21 15:00 18 143/89 H 92 L 04/02/21 14:00 16 110/52 L 91 L 04/02/21 13:00 33 H 127/65 91 L 04/02/21 12:00 98.2 F 23 H 125/74 94 L 04/02/21 11:00 98.7 F 22 H 138/69 94 L 04/02/21 10:00 22 H 156/71 H 88 L 04/02/21 09:51 156/71 H 04/02/21 09:00 28 H 125/70 91 L 04/02/21 08:00 28 H 140/84 92 L 04/02/21 07:00 28 H 154/72 H 92 L 04/02/21 06:00 27 H 145/99 H 94 L 04/02/21 05:00 25 H 94 L 04/02/21 04:00 98.8 F 23 H 91 L - Problem List & Annotations (1) Hypertension SNOMED Code(s): 28824768 Code(s): I10 - ESSENTIAL (PRIMARY) HYPERTENSION Status: Acute Current Visit: Yes (2) Pneumonia due to COVID-19 virus SNOMED Code(s): 208813033103497495 Code(s): U07.1 - COVID-19; J12.82 - PNEUMONIA DUE TO CORONAVIRUS DISEASE 2019 Status: Acute Current Visit: Yes (3) COVID-19 SNOMED Code(s): 897825885 Code(s): U07.1 - COVID-19 Status: Acute Current Visit: No (4) Hypoxia SNOMED Code(s): 432812681 Code(s): R09.02 - HYPOXEMIA Status: Acute Current Visit: No (5) Bacteremia SNOMED Code(s): 8417488 Code(s): R78.81 - BACTEREMIA Status: Acute Current Visit: Yes - Problem List Review Problem List Initiated/Reviewed/Updated: Yes - My Orders Last 24 Hours: My Active Orders 04/03/21 05:11 CBC WITH AUTO DIFF [HEME] AM CMP [COMPREHENSIVE METABOLIC PN,CMP] [CHEM] AM 04/04/21 05:11 CBC WITH AUTO DIFF [HEME] AM CMP [COMPREHENSIVE METABOLIC PN,CMP] [CHEM] AM 04/05/21 05:11 CBC WITH AUTO DIFF [HEME] AM CMP [COMPREHENSIVE METABOLIC PN,CMP] [CHEM] AM - Plan Plan:: 1. Acute hypoxic respiratory failure secondary to COVID-19 pneumonia -Continue dexamethasone 6 mg per oral route once a day -Continue baricitinib 4 mg per oral route once a day -Continue with Zofran as needed -Continue Combivent therapy -Continue Robitussin as needed 2. Bacteremia -Continue Zosyn 4.5 g per IV route every 8 hours and Vancomycin 1.5 g per IV route every 8 hours -Monitor daily CBC/CMP 3. Hypertension -Continue ramipril
[2021-04-02] MEDS: Enoxaparin 40 MG/0.4 ML Syringe SUBCUT SCH (18:10)
[2021-04-03] MEDS: Piperacillin/Tazobactam 4.5 GM in Sodium Chloride 0.9% 100 ML IV SCH ×2 (02:48→10:54)
[2021-04-03] MEDS: Albuterol/Ipratropium 4 GM Inhalation Spray INH SCH ×6 (02:48→21:25)
[2021-04-03 06:36] LABS: BLOOD UREA NITROGEN,BUN 20 mg/dL (7.0-18.0); CARBON DIOXIDE,CO2 27.7 mmol/L (21.0-32.0); CHLORIDE,CL 105 mmol/L (98-107); GLUCOSE RANDOM 84 mg/dL (74-106); POTASSIUM,K 4.1 mmol/L (3.5-5.1); SODIUM,NA 142 mmol/L (136-145)
[2021-04-03] MEDS: Pantoprazole 40 MG Tab.CR PO SCH (08:10)
[2021-04-03] MEDS: Dexamethasone 4 MG Tab PO SCH (08:11)
--- NOTE | 2021-04-03 15:29 | PCM.PN ---
- General Info Date of Service: 04/03/21 Admission Dx/Problem (Free Text): Admission Diagnosis/Problem Admission Diagnosis/Problem Hypoxemia Subjective Update: The patient is a 35-year-old female, on day 9 of service, with a significant past medical history of hypertension, who was admitted to the medical floor today due to acute respiratory failure secondary to COVID-19 pneumonia. The patient is currently on heated high flow with a O2 flow rate of 50 and FiO2 of 65, and saturating at 92%. She has no other complaints at this time. Functional Status: Reports: Tolerating Diet, Ambulating, Urinating - Review of Systems General: Reports: Weakness, Fatigue, Malaise. Denies: Fever Pulmonary: Reports: Shortness of Breath, Cough, Sputum Cardiovascular: Reports: Dyspnea on Exertion. Denies: Chest Pain, Palpitations Gastrointestinal: Denies: Abdominal Pain, Constipation, Decreased Appetite Genitourinary: Denies: Dysuria, Frequency, Burning Musculoskeletal: Denies: Neck Pain, Shoulder Pain, Arm Pain Skin: Denies: Cyanosis, Jaundice, Mottled Neurological: Denies: Confusion, Dizziness, Headache - Patient Data Vitals - Most Recent: Last Vital Signs Temp 36.4 C 04/03/21 13:00 Pulse 81 03/31/21 09:00 Resp 39 H 04/03/21 14:00 BP 127/70 04/03/21 14:00 Pulse Ox 89 L 04/03/21 14:00 Weight - Most Recent: 101.456 kg I&O - Last 24 Hours: Intake & Output 04/03/21 04/03/21 04/03/21 06:59 14:59 22:59 Intake Total 1050 Output Total 700 Balance 350 Lab Results Last 24 Hours: Laboratory Results - last 24 hr 04/03/21 04/03/21 04/03/21 Range/Units 05:15 05:15 13:05 WBC 7.25 (4.0-11.0) K/uL RBC 4.04 L (4.30-5.90) M/uL Hgb 11.7 L (12.0-16.0) g/dL Hct 35.7 L (36.0-46.0) % MCV 88.4 (80.0-98.0) fL MCH 29.0 (27.0-32.0) pg MCHC 32.8 (31.0-37.0) g/dL RDW Std Deviation 41.7 (28.0-62.0) fl RDW Coeff of Zulma 13 (11.0-15.0) % Plt Count 632 H (150-400) K/uL MPV 10.70 (7.40-12.00) fL Neut % (Auto) 82.2 H (48.0-80.0) % Lymph % (Auto) 9.5 L (16.0-40.0) % Mitchell % (Auto) 6.6 (0.0-15.0) % Eos % (Auto) 1.7 (0.0-7.0) % Baso % (Auto) 0.0 (0.0-1.5) % Neut # (Auto) 6.0 H (1.4-5.7) K/uL Lymph # (Auto) 0.7 (0.6-2.4) K/uL Mitchell # (Auto) 0.5 (0.0-0.8) K/uL Eos # (Auto) 0.1 (0.0-0.7) K/uL Baso # (Auto) 0.0 (0.0-0.1) K/uL Nucleated RBC % 0.0 /100WBC Nucleated RBCs # 0 K/uL Sodium 142 (136-145) mmol/L Potassium 4.1 (3.5-5.1) mmol/L Chloride 105 (98-107) mmol/L Carbon Dioxide 27.7 (21.0-32.0) mmol/L BUN 20 H (7.0-18.0) mg/dL Creatinine 0.9 (0.6-1.0) mg/dL Est Cr Clr Drug Dosing 77.76 mL/min Estimated GFR (MDRD) > 60.0 ml/min Glucose 84 (74-106) mg/dL Calcium 8.1 L (8.5-10.1) mg/dL Total Bilirubin 0.8 (0.2-1.0) mg/dL AST 23 (15-37) IU/L ALT 68 H (14-63) IU/L Alkaline Phosphatase 70 (46-116) U/L Total Protein 5.9 L (6.4-8.2) g/dL Albumin 2.1 L (3.4-5.0) g/dL Globulin 3.8 (2.6-4.0) g/dL Albumin/Globulin Ratio 0.6 L (0.9-1.6) Vancomycin Trough 18.6 H (5.0-10.0) ug/mL Med Orders - Current: Current Medications Acetaminophen (Acetaminophen 325 Mg Tab) 650 mg PO Q6H PRN PRN Reason: Pain/Fever Last Admin: 04/02/21 09:51 Dose: 650 mg Documented by: Albuterol/Ipratropium (Albuterol/Ipratropium 4 Gm Inhalation Lexa) 0 gm INH Q4HRRT [facility] Last Admin: 04/03/21 14:17 Dose: 1 puff Documented by: Baricitinib (Baricitinib 2 Mg Tab) 4 mg PO DAILY [facility] Last Admin: 04/03/21 08:10 Dose: 4 mg Documented by: Dexamethasone (Dexamethasone 4 Mg Tab) 6 mg PO DAILY [facility] Last Admin: 04/03/21 08:11 Dose: 6 mg Documented by: Enoxaparin Sodium (Enoxaparin 40 Mg/0.4 Ml Syringe) 40 mg SUBCUT Q24H [facility] Last Admin: 04/02/21 18:10 Dose: 40 mg Documented by: Guaifenesin/Codeine Phosphate (Codeine/Guaifenesin 10-100 Mg/5 Ml Syrup 5 Ml Cup) 5 ml PO Q4H PRN PRN Reason: Cough Last Admin: 04/01/21 02:03 Dose: 5 ml Documented by: Piperacillin Sod/Tazobactam (Sod 4.5 gm/ Sodium Chloride) 100 mls @ 100 mls/hr IV Q8H [facility] Last Admin: 04/03/21 10:54 Dose: 100 mls/hr Documented by: Vancomycin HCl 1.25 gm/ Sodium (Chloride) 250 mls @ 166.667 mls/hr IV Q8H [facility] Last Admin: 04/03/21 13:43 Dose: 166.667 mls/hr Documented by: Ondansetron HCl (Ondansetron 4 Mg/2 Ml Sdv) 4 mg IVPUSH Q6H PRN PRN Reason: Nausea/Vomiting Pantoprazole Sodium (Pantoprazole 40 Mg Tab.Cr) 40 mg PO DAILY [facility] Last Admin: 04/03/21 08:10 Dose: 40 mg Documented by: Ramipril (Ramipril 10 Mg Cap) 10 mg PO DAILY [facility] Last Admin: 04/03/21 08:11 Dose: 10 mg Documented by: Sodium Chloride (Sodium Chloride 0.9% 10 Ml Syringe) 10 ml FLUSH ASDIRECTED PRN PRN Reason: Keep Vein Open Last Admin: 03/26/21 10:51 Dose: 10 ml Documented by: Sodium Chloride (Sodium Chloride 0.9% 2.5 Ml Syringe) 2.5 ml FLUSH ASDIRECTED PRN PRN Reason: Keep Vein Open Last Admin: 03/26/21 10:51 Dose: 2.5 ml Documented by: Vancomycin HCl (Pharmacy To Dose - Vancomycin) 1 dose .XX ASDIRECTED DUYEN Discontinued Medications Acetaminophen (Acetaminophen 325 Mg Tab) 650 mg PO NOW ONE Stop: 03/26/21 10:45 Last Admin: 03/26/21 10:50 Dose: 650 mg Documented by: Albuterol/Ipratropium (Albuterol/Ipratropium 4 Gm Inhalation Lexa) 1 gm INH Q4HRRT PRN PRN Reason: Dyspnea Baricitinib (Baricitinib 2 Mg Tab) 4 mg PO DAILY [facility] Last Admin: 03/29/21 08:19 Dose: 4 mg Documented by: Guaifenesin/Dextromethorphan (Guaifenesin/Dextromethorphan 100-10 Mg/5 Ml Soln 1 0 Ml Cup) 10 ml PO Q4H PRN PRN Reason: Cough Last Admin: 03/27/21 09:24 Dose: 10 ml Documented by: Sodium Chloride (Normal Saline) 1,000 mls @ 999 mls/hr IV .BOLUS ONE Stop: 03/26/21 11:44 Last Admin: 03/26/21 10:51 Dose: 999 mls/hr Documented by: Remdesivir 200 mg/ Sodium (Chloride) 250 mls @ 250 mls/hr IV ONETIME ONE Stop: 03/26/21 13:29 Last Admin: 03/26/21 12:44 Dose: 250 mls/hr Documented by: Remdesivir 100 mg/ Sodium (Chloride) 100 mls @ 100 mls/hr IV Q24H [facility]YEN Stop: 03/30/21 14:29 Last Admin: 03/30/21 12:35 Dose: 100 mls/hr Documented by: Levofloxacin/Dextrose 750 mg/ (Premix) 150 mls @ 100 mls/hr IV Q24H [facility] Last Admin: 03/26/21 22:45 Dose: 100 mls/hr Documented by: Vancomycin HCl 1.5 gm/ Premix 300 mls @ 200 mls/hr IV Q8H [facility] Last Admin: 03/29/21 05:02 Dose: 200 mls/hr Documented by: Vancomycin HCl 1.5 gm/ Premix 300 mls @ 200 mls/hr IV Q8H [facility] Last Admin: 04/02/21 13:42 Dose: Not Given Documented by: Ketorolac Tromethamine (Ketorolac 30 Mg/Ml Sdv) 30 mg IVPUSH ONETIME ONE Stop: 03/26/21 10:45 Last Admin: 03/26/21 10:50 Dose: 30 mg Documented by: Ondansetron HCl (Ondansetron 4 Mg/2 Ml Sdv) 4 mg IVPUSH ONETIME ONE Stop: 03/26/21 10:45 Last Admin: 03/26/21 10:50 Dose: 4 mg Documented by: Potassium Chloride (Potassium Chloride 20 Meq Tab.Er) 40 meq PO ONETIME ONE Stop: 03/26/21 20:01 Last Admin: 03/26/21 21:20 Dose: 40 meq Documented by: Ramipril (Ramipril 10 Mg Cap) 10 mg PO ONETIME ONE Stop: 03/26/21 21:16 Last Admin: 03/26/21 21:20 Dose: 10 mg Documented by: - Exam Quality Assessment: Supplemental Oxygen General: Alert, Oriented, Cooperative, Mild Distress Lungs: Decreased Breath Sounds, Crackles, Rales Cardiovascular: Regular Rate, Regular Rhythm GI/Abdominal Exam: Normal Bowel Sounds, Soft, Non-Tender - Patient Data Lab Results Last 24 hrs: Laboratory Results - last 24 hr 04/03/21 04/03/21 04/03/21 Range/Units 05:15 05:15 13:05 WBC 7.25 (4.0-11.0) K/uL RBC 4.04 L (4.30-5.90) M/uL Hgb 11.7 L (12.0-16.0) g/dL Hct 35.7 L (36.0-46.0) % MCV 88.4 (80.0-98.0) fL MCH 29.0 (27.0-32.0) pg MCHC 32.8 (31.0-37.0) g/dL RDW Std Deviation 41.7 (28.0-62.0) fl RDW Coeff of Zulma 13 (11.0-15.0) % Plt Count 632 H (150-400) K/uL MPV 10.70 (7.40-12.00) fL Neut % (Auto) 82.2 H (48.0-80.0) % Lymph % (Auto) 9.5 L (16.0-40.0) % Mitchell % (Auto) 6.6 (0.0-15.0) % Eos % (Auto) 1.7 (0.0-7.0) % Baso % (Auto) 0.0 (0.0-1.5) % Neut # (Auto) 6.0 H (1.4-5.7) K/uL Lymph # (Auto) 0.7 (0.6-2.4) K/uL Mitchell # (Auto) 0.5 (0.0-0.8) K/uL Eos # (Auto) 0.1 (0.0-0.7) K/uL Baso # (Auto) 0.0 (0.0-0.1) K/uL Nucleated RBC % 0.0 /100WBC Nucleated RBCs # 0 K/uL Sodium 142 (136-145) mmol/L Potassium 4.1 (3.5-5.1) mmol/L Chloride 105 (98-107) mmol/L Carbon Dioxide 27.7 (21.0-32.0) mmol/L BUN 20 H (7.0-18.0) mg/dL Creatinine 0.9 (0.6-1.0) mg/dL Est Cr Clr Drug Dosing 77.76 mL/min Estimated GFR (MDRD) > 60.0 ml/min Glucose 84 (74-106) mg/dL Calcium 8.1 L (8.5-10.1) mg/dL Total Bilirubin 0.8 (0.2-1.0) mg/dL AST 23 (15-37) IU/L ALT 68 H (14-63) IU/L Alkaline Phosphatase 70 (46-116) U/L Total Protein 5.9 L (6.4-8.2) g/dL Albumin 2.1 L (3.4-5.0) g/dL Globulin 3.8 (2.6-4.0) g/dL Albumin/Globulin Ratio 0.6 L (0.9-1.6) Vancomycin Trough 18.6 H (5.0-10.0) ug/mL Result Diagrams: 04/03/21 05:15 04/03/21 05:15 Sepsis Event Note - Evaluation Sepsis Screening Result: No Definite Risk - Focused Exam Vital Signs: Vital Signs Temp Resp BP BP Pulse Ox 04/03/21 14:00 39 H 127/70 89 L 04/03/21 13:00 36.4 C 41 H 93 L 04/03/21 12:00 34 H 123/69 88 L 04/03/21 11:00 33 H 138/71 89 L 04/03/21 10:00 41 H 140/74 83 L 04/03/21 09:00 33 H 138/66 95 04/03/21 08:11 125/62 04/03/21 08:00 36.2 C 19 125/62 92 L 04/03/21 07:00 35 H 150/69 H 90 L 04/03/21 06:00 31 H 95 04/03/21 05:00 34 H 152/80 H 95 04/03/21 04:00 23 H 134/72 91 L - Problem List & Annotations (1) Acute respiratory failure with hypoxia SNOMED Code(s): 01194792, 550959210 Code(s): J96.01 - ACUTE RESPIRATORY FAILURE WITH HYPOXIA Status: Acute Current Visit: Yes (2) Hypertension SNOMED Code(s): 35994698 Code(s): I10 - ESSENTIAL (PRIMARY) HYPERTENSION Status: Acute Current Visit: Yes (3) Hypoxemia SNOMED Code(s): 248444119 Code(s): R09.02 - HYPOXEMIA Status: Acute Current Visit: Yes (4) Pneumonia due to COVID-19 virus SNOMED Code(s): 024804647932798474 Code(s): U07.1 - COVID-19; J12.82 - PNEUMONIA DUE TO CORONAVIRUS DISEASE 2019 Status: Acute Current Visit: Yes - Problem List Review Problem List Initiated/Reviewed/Updated: Yes - My Orders Last 24 Hours: My Active Orders 04/04/21 13:00 VANCOMYCIN TROUGH [CHEM] Routine - Plan Plan:: 1. Acute hypoxic respiratory failure secondary to COVID-19 pneumonia -Continue dexamethasone 6 mg per oral route once a day -Continue baricitinib 4 mg per oral route once a day -Continue with Zofran as needed -Continue Combivent therapy -Continue Robitussin as needed 2. Bacteremia -Cultures noted, will switch to oral Levaquin based on culture and sensitivity -Monitor daily CBC/CMP 3. Hypertension -Continue ramipril
[2021-04-03] MEDS: Levofloxacin 750 MG Tab PO SCH (15:50)
[2021-04-03] MEDS: Enoxaparin 40 MG/0.4 ML Syringe SUBCUT SCH (17:48)
[2021-04-04] MEDS: Albuterol/Ipratropium 4 GM Inhalation Spray INH SCH ×6 (01:37→21:45)
[2021-04-04 06:55] LABS: BLOOD UREA NITROGEN,BUN 21 mg/dL (7.0-18.0); CARBON DIOXIDE,CO2 29.1 mmol/L (21.0-32.0); CHLORIDE,CL 105 mmol/L (98-107); GLUCOSE RANDOM 92 mg/dL (74-106); POTASSIUM,K 4.1 mmol/L (3.5-5.1); SODIUM,NA 142 mmol/L (136-145)
[2021-04-04] MEDS: Dexamethasone 4 MG Tab PO SCH (09:15)
[2021-04-04] MEDS: Pantoprazole 40 MG Tab.CR PO SCH (09:15)
--- NOTE | 2021-04-04 09:40 | PN ---
THC Physician - Brief Progress [id number]/17/2021 09:21[facility] Kizzy Watson, [place] - JASMYNE (BUNNY) - JASMYNE [facility]ENTER[facility]BERSEBAS BILLINGSCory, COVID+Date of Service 04/04/20 09:21HPI/Events of Note eICU admission [id number] female currently admitted to the ICU for ac [place] hypoxic respiratory failure secondary to COVID-19. Patient initially presented to hospital on and was initiated on COVID-19 treatment at that time. Patient has completed course of remdes ivir and is currently on Decadron as well as baricitinib. Patient has had progressively worsening hy poxemia currently on heated high flow nasal cannula thus transferred to the ICU for further managemen t.Patient seen on camera, sitting up in bed, eating breakfast and does not appear to be in distress a t this time, currently on heated high flowVital signs reviewedLabs/EMR reviewedAcute hypoxic respirat ory failure-Secondary to COVID-19 infection. -PPE and isolation per institution policy-Agree with hea wei high flow at this time. If patient continues to have significant work of breathing or worsening hypoxia recommend initiating CPAP/BiPAP at that time depending on ABG. We can assist further in this regards if patient has worsening symptoms. When initiating noninvasive therapy recommend targeting tidal volume around 6-8cc/kg-Coag negative staph likely contaminant, will defer to bedside team in re gards to antibiotics. Can consider obtaining procalcitonin to help de-escalate.-Agree with Decadron and baricitinib to complete course.-Recommend self proning as tolerated-Recommend keeping patient euv olemic as much as possible.-Continue with GI and DVT prophylaxisThank you for allowing us to particip ate in the care of this patient. Please do not hesitate to contact eICU for any questions, clarificat ion or assistance with implementation of above.Interventions Major-Hypoxemia - evaluation and managem ent, Infection - evaluation and management, Respiratory failure - evaluation and managementElectronic ally Signed by: YUE VELEZ) on 04/04/2021 09:39
--- NOTE | 2021-04-04 13:32 | PCM.PN ---
- General Info Date of Service: 04/04/21 Admission Dx/Problem (Free Text): Admission Diagnosis/Problem Admission Diagnosis/Problem Hypoxemia Subjective Update: The patient is a 35-year-old female, currently on heated high flow with a O2 flow rate of 40 and FiO2 of 50, and saturating at 92%. She has no other complaints at this time. Feels much better today, but was exhausted after walking a bit in the room Functional Status: Reports: Tolerating Diet, Ambulating, Urinating - Review of Systems General: Reports: Weakness, Fatigue, Malaise. Denies: Fever, Chills, Night Sweats Pulmonary: Reports: Shortness of Breath, Cough, Sputum. Denies: Pleuritic Chest Pain Cardiovascular: Reports: Dyspnea on Exertion. Denies: Chest Pain, Palpitations, Orthopnea Gastrointestinal: Denies: Abdominal Pain, Constipation, Decreased Appetite, Diarrhea Genitourinary: Denies: Dysuria, Frequency, Burning, Pain Musculoskeletal: Denies: Neck Pain, Shoulder Pain, Arm Pain, Hand Pain Skin: Denies: Cyanosis, Jaundice, Mottled, Pallor - Patient Data Vitals - Most Recent: Last Vital Signs Temp 36.1 C 04/04/21 12:00 Pulse 81 03/31/21 09:00 Resp 35 H 04/04/21 12:00 BP 119/75 04/04/21 12:00 Pulse Ox 88 L 04/04/21 12:00 Weight - Most Recent: 101.456 kg I&O - Last 24 Hours: Intake & Output 04/03/21 04/04/21 04/04/21 22:59 06:59 14:59 Intake Total 1050 400 Output Total 1400 950 Balance -350 -550 Lab Results Last 24 Hours: Laboratory Results - last 24 hr 04/03/21 04/04/21 04/04/21 Range/Units 13:05 05:48 05:48 WBC 9.19 (4.0-11.0) K/uL RBC 4.15 L (4.30-5.90) M/uL Hgb 12.1 (12.0-16.0) g/dL Hct 36.5 (36.0-46.0) % MCV 88.0 (80.0-98.0) fL MCH 29.2 (27.0-32.0) pg MCHC 33.2 (31.0-37.0) g/dL RDW Std Deviation 41.7 (28.0-62.0) fl RDW Coeff of Zulma 13 (11.0-15.0) % Plt Count 649 H (150-400) K/uL MPV 10.20 (7.40-12.00) fL Neut % (Auto) 81.8 H (48.0-80.0) % Lymph % (Auto) 8.2 L (16.0-40.0) % [place] % (Auto) 7.0 (0.0-15.0) % Eos % (Auto) 2.9 (0.0-7.0) % Baso % (Auto) 0.1 (0.0-1.5) % Neut # (Auto) 7.5 H (1.4-5.7) K/uL Lymph # (Auto) 0.8 (0.6-2.4) K/uL [place] # (Auto) 0.6 (0.0-0.8) K/uL Eos # (Auto) 0.3 (0.0-0.7) K/uL Baso # (Auto) 0.0 (0.0-0.1) K/uL Nucleated RBC % 0.0 /100WBC Nucleated RBCs # 0 K/uL Sodium 142 (136-145) mmol/L Potassium 4.1 (3.5-5.1) mmol/L Chloride 105 (98-107) mmol/L Carbon Dioxide 29.1 (21.0-32.0) mmol/L BUN 21 H (7.0-18.0) mg/dL Creatinine 0.9 (0.6-1.0) mg/dL Est Cr Clr Drug Dosing 77.76 mL/min Estimated GFR (MDRD) > 60.0 ml/min Glucose 92 (74-106) mg/dL Calcium 8.5 (8.5-10.1) mg/dL Total Bilirubin 0.5 (0.2-1.0) mg/dL AST 27 (15-37) IU/L ALT 79 H (14-63) IU/L Alkaline Phosphatase 71 (46-116) U/L Total Protein 6.4 (6.4-8.2) g/dL Albumin 2.2 L (3.4-5.0) g/dL Globulin 4.2 H (2.6-4.0) g/dL Albumin/Globulin Ratio 0.5 L (0.9-1.6) Vancomycin Trough 18.6 H (5.0-10.0) ug/mL Med Orders - Current: Current Medications Acetaminophen (Acetaminophen 325 Mg Tab) 650 mg PO Q6H PRN PRN Reason: Pain/Fever Last Admin: 04/02/21 09:51 Dose: 650 mg Documented by: Albuterol/Ipratropium (Albuterol/Ipratropium 4 Gm Inhalation Bee) 0 gm INH Q4HRRT [facility] Last Admin: 04/04/21 09:16 Dose: 1 puff Documented by: Baricitinib (Baricitinib 2 Mg Tab) 4 mg PO DAILY [facility] Last Admin: 04/04/21 09:16 Dose: 4 mg Documented by: Dexamethasone (Dexamethasone 4 Mg Tab) 6 mg PO DAILY [facility] Last Admin: 04/04/21 09:15 Dose: 6 mg Documented by: Enoxaparin Sodium (Enoxaparin 40 Mg/0.4 Ml Syringe) 40 mg SUBCUT Q24H [facility] Last Admin: 04/03/21 17:48 Dose: 40 mg Documented by: Guaifenesin/Codeine Phosphate (Codeine/Guaifenesin 10-100 Mg/5 Ml Syrup 5 Ml Cup) 5 ml PO Q4H PRN PRN Reason: Cough Last Admin: 04/01/21 02:03 Dose: 5 ml Documented by: Levofloxacin (Levofloxacin 750 Mg Tab) 750 mg PO Q24H [facility] Last Admin: 04/03/21 15:50 Dose: 750 mg Documented by: Ondansetron HCl (Ondansetron 4 Mg/2 Ml Sdv) 4 mg IVPUSH Q6H PRN PRN Reason: Nausea/Vomiting Pantoprazole Sodium (Pantoprazole 40 Mg Tab.Cr) 40 mg PO DAILY [facility] Last Admin: 04/04/21 09:15 Dose: 40 mg Documented by: Ramipril (Ramipril 10 Mg Cap) 10 mg PO DAILY [facility] Last Admin: 04/04/21 09:16 Dose: 10 mg Documented by: Sodium Chloride (Sodium Chloride 0.9% 10 Ml Syringe) 10 ml FLUSH ASDIRECTED PRN PRN Reason: Keep Vein Open Last Admin: 03/26/21 10:51 Dose: 10 ml Documented by: Sodium Chloride (Sodium Chloride 0.9% 2.5 Ml Syringe) 2.5 ml FLUSH ASDIRECTED PRN PRN Reason: Keep Vein Open Last Admin: 03/26/21 10:51 Dose: 2.5 ml Documented by: Vancomycin HCl (Pharmacy To Dose - Vancomycin) 1 dose .XX ASDIRECTED DUYEN Discontinued Medications Acetaminophen (Acetaminophen 325 Mg Tab) 650 mg PO NOW ONE Stop: 03/26/21 10:45 Last Admin: 03/26/21 10:50 Dose: 650 mg Documented by: Albuterol/Ipratropium (Albuterol/Ipratropium 4 Gm Inhalation Bee) 1 gm INH Q4HRRT PRN PRN Reason: Dyspnea Baricitinib (Baricitinib 2 Mg Tab) 4 mg PO DAILY [facility] Last Admin: 03/29/21 08:19 Dose: 4 mg Documented by: Guaifenesin/Dextromethorphan (Guaifenesin/Dextromethorphan 100-10 Mg/5 Ml Soln 10 Ml Cup) 10 ml PO Q4H PRN PRN Reason: Cough Last Admin: 03/27/21 09:24 Dose: 10 ml Documented by: Sodium Chloride (Normal Saline) 1,000 mls @ 999 mls/hr IV .BOLUS ONE Stop: 03/26/21 11:44 Last Admin: 03/26/21 10:51 Dose: 999 mls/hr Documented by: Remdesivir 200 mg/ Sodium (Chloride) 250 mls @ 250 mls/hr IV ONETIME ONE Stop: 03/26/21 13:29 Last Admin: 03/26/21 12:44 Dose: 250 mls/hr Documented by: Remdesivir 100 mg/ Sodium (Chloride) 100 mls @ 100 mls/hr IV Q24H [facility] Stop: 03/30/21 14:29 Last Admin: 03/30/21 12:35 Dose: 100 mls/hr Documented by: Levofloxacin/Dextrose 750 mg/ (Premix) 150 mls @ 100 mls/hr IV Q24H [facility] Last Admin: 03/26/21 22:45 Dose: 100 mls/hr Documented by: Piperacillin Sod/Tazobactam (Sod 4.5 gm/ Sodium Chloride) 100 mls @ 100 mls/hr IV Q8H [facility] Last Admin: 04/03/21 10:54 Dose: 100 mls/hr Documented by: Vancomycin HCl 1.5 gm/ Premix 300 mls @ 200 mls/hr IV Q8H [facility] Last Admin: 03/29/21 05:02 Dose: 200 mls/hr Documented by: Vancomycin HCl 1.5 gm/ Premix 300 mls @ 200 mls/hr IV Q8H [facility] Last Admin: 04/02/21 13:42 Dose: Not Given Documented by: Vancomycin HCl 1.25 gm/ Sodium (Chloride) 250 mls @ 166.667 mls/hr IV Q8H [facility] Last Admin: 04/04/21 06:16 Dose: 166.667 mls/hr Documented by: Ketorolac Tromethamine (Ketorolac 30 Mg/Ml Sdv) 30 mg IVPUSH ONETIME ONE Stop: 03/26/21 10:45 Last Admin: 03/26/21 10:50 Dose: 30 mg Documented by: Ondansetron HCl (Ondansetron 4 Mg/2 Ml Sdv) 4 mg IVPUSH ONETIME ONE Stop: 03/26/21 10:45 Last Admin: 03/26/21 10:50 Dose: 4 mg Documented by: Potassium Chloride (Potassium Chloride 20 Meq Tab.Er) 40 meq PO ONETIME ONE Stop: 03/26/21 20:01 Last Admin: 03/26/21 21:20 Dose: 40 meq Documented by: Ramipril (Ramipril 10 Mg Cap) 10 mg PO ONETIME ONE Stop: 03/26/21 21:16 Last Admin: 03/26/21 21:20 Dose: 10 mg Documented by: - Exam Quality Assessment: Supplemental Oxygen General: Alert, Oriented Lungs: Normal Respiratory Effort, Decreased Breath Sounds, Crackles, Rales Cardiovascular: Regular Rate, Regular Rhythm GI/Abdominal Exam: Normal Bowel Sounds, Soft, Non-Tender - Patient Data Lab Results Last 24 hrs: Laboratory Results - last 24 hr 04/03/21 04/04/21 04/04/21 Range/Units 13:05 05:48 05:48 WBC 9.19 (4.0-11.0) K/uL RBC 4.15 L (4.30-5.90) M/uL Hgb 12.1 (12.0-16.0) g/dL Hct 36.5 (36.0-46.0) % MCV 88.0 (80.0-98.0) fL MCH 29.2 (27.0-32.0) pg MCHC 33.2 (31.0-37.0) g/dL RDW Std Deviation 41.7 (28.0-62.0) fl RDW Coeff of Zulma 13 (11.0-15.0) % Plt Count 649 H (150-400) K/uL MPV 10.20 (7.40-12.00) fL Neut % (Auto) 81.8 H (48.0-80.0) % Lymph % (Auto) 8.2 L (16.0-40.0) % [place] % (Auto) 7.0 (0.0-15.0) % Eos % (Auto) 2.9 (0.0-7.0) % Baso % (Auto) 0.1 (0.0-1.5) % Neut # (Auto) 7.5 H (1.4-5.7) K/uL Lymph # (Auto) 0.8 (0.6-2.4) K/uL [place] # (Auto) 0.6 (0.0-0.8) K/uL Eos # (Auto) 0.3 (0.0-0.7) K/uL Baso # (Auto) 0.0 (0.0-0.1) K/uL Nucleated RBC % 0.0 /100WBC Nucleated RBCs # 0 K/uL Sodium 142 (136-145) mmol/L Potassium 4.1 (3.5-5.1) mmol/L Chloride 105 (98-107) mmol/L Carbon Dioxide 29.1 (21.0-32.0) mmol/L BUN 21 H (7.0-18.0) mg/dL Creatinine 0.9 (0.6-1.0) mg/dL Est Cr Clr Drug Dosing 77.76 mL/min Estimated GFR (MDRD) > 60.0 ml/min Glucose 92 (74-106) mg/dL Calcium 8.5 (8.5-10.1) mg/dL Total Bilirubin 0.5 (0.2-1.0) mg/dL AST 27 (15-37) IU/L ALT 79 H (14-63) IU/L Alkaline Phosphatase 71 (46-116) U/L Total Protein 6.4 (6.4-8.2) g/dL Albumin 2.2 L (3.4-5.0) g/dL Globulin 4.2 H (2.6-4.0) g/dL Albumin/Globulin Ratio 0.5 L (0.9-1.6) Vancomycin Trough 18.6 H (5.0-10.0) ug/mL Result Diagrams: 04/04/21 05:48 04/04/21 05:48 Sepsis Event Note - Evaluation Sepsis Screening Result: No Definite Risk - Focused Exam Vital Signs: Vital Signs Temp Resp BP BP Pulse Ox 04/04/21 12:00 36.1 C 35 H 119/75 88 L 04/04/21 11:00 35 H 131/77 95 04/04/21 10:00 29 H 140/83 88 L 04/04/21 09:16 129/79 04/04/21 09:00 34 H 136/81 89 L 04/04/21 08:30 38 H 89 L 04/04/21 08:00 36.4 C 41 H 129/79 74 L 04/04/21 07:00 24 H 136/87 92 L 04/04/21 06:00 28 H 132/65 92 L 04/04/21 05:00 25 H 128/67 94 L 04/04/21 04:00 36.8 C 28 H 134/83 92 L 04/04/21 03:00 21 H 138/77 93 L 04/04/21 02:00 25 H 131/75 92 L - Problem List & Annotations (1) Acute respiratory failure with hypoxia SNOMED Code(s): 80738409, 177666524 Code(s): J96.01 - ACUTE RESPIRATORY FAILURE WITH HYPOXIA Status: Acute Current Visit: Yes (2) Hypertension SNOMED Code(s): 67817267 Code(s): I10 - ESSENTIAL (PRIMARY) HYPERTENSION Status: Acute Current Visit: Yes (3) Hypoxemia SNOMED Code(s): 589490493 Code(s): R09.02 - HYPOXEMIA Status: Acute Current Visit: Yes (4) Pneumonia due to COVID-19 virus SNOMED Code(s): 410364702691828876 Code(s): U07.1 - COVID-19; J12.82 - PNEUMONIA DUE TO CORONAVIRUS DISEASE 2019 Status: Acute Current Visit: Yes - Problem List Review Problem List Initiated/Reviewed/Updated: Yes - My Orders Last 24 Hours: My Active Orders 04/03/21 16:00 levoFLOXacin [Levaquin] 750 mg PO Q24H 04/04/21 13:00 VANCOMYCIN TROUGH [CHEM] Routine 04/05/21 05:11 PROCALCITONIN [REF] AM - Plan Plan:: 1. Acute hypoxic respiratory failure secondary to COVID-19 pneumonia -Continue dexamethasone 6 mg per oral route once a day -Continue baricitinib 4 mg per oral route once a day -Continue with Zofran as needed -Continue Combivent therapy -Continue Robitussin as needed -Wean off a tolerated 2. Bacteremia -Cultures noted, most likely contaminant, will switch to oral Levaquin based on culture and sensitivity, send procal to [facility] -Monitor daily CBC/CMP 3. Hypertension -Continue ramipril
[2021-04-04] MEDS: Levofloxacin 750 MG Tab PO SCH (15:04)
[2021-04-04] MEDS: Enoxaparin 40 MG/0.4 ML Syringe SUBCUT SCH (17:24)
[2021-04-05] MEDS: Albuterol/Ipratropium 4 GM Inhalation Spray INH SCH ×4 (01:30→14:24)
[2021-04-05 06:50] LABS: BLOOD UREA NITROGEN,BUN 21 mg/dL (7.0-18.0); CARBON DIOXIDE,CO2 30.1 mmol/L (21.0-32.0); CHLORIDE,CL 105 mmol/L (98-107); GLUCOSE RANDOM 112 mg/dL (74-106); POTASSIUM,K 4.3 mmol/L (3.5-5.1); SODIUM,NA 142 mmol/L (136-145)
[2021-04-05] MEDS: Pantoprazole 40 MG Tab.CR PO SCH (08:44)
[2021-04-05] MEDS: Dexamethasone 4 MG Tab PO SCH (08:44)
--- NOTE | 2021-04-05 14:11 | PCM.PN ---
<Saige Kamara - Last Filed: 04/05/21 14:07> - General Info Date of Service: 04/05/21 Admission Dx/Problem (Free Text): Admission Diagnosis/Problem Admission Diagnosis/Problem Hypoxemia Subjective Update: 35-year-old female admitted for Covid pneumonia and bacteremia, currently on oral Levaquin. Patient is on heated high flow today FiO2 45%. She continues to do well on piracetam, dexamethasone, Lovenox, levofloxacin and vancomycin. Jaleesa ent states she had a bowel movement yesterday. Patient is tolerating diet well and denies decreased appetite. Patient likely to be weaned down to 5 L today and will be transferred to the general medical floor. - Review of Systems General: Denies: Fever HEENT: Denies: Headaches, Sore Throat Pulmonary: Reports: Shortness of Breath. Denies: Pleuritic Chest Pain Cardiovascular: Denies: Chest Pain, Palpitations Gastrointestinal: Denies: Abdominal Pain, Constipation, Nausea, Vomiting Genitourinary: Denies: Dysuria Musculoskeletal: Denies: Leg Pain Skin: Denies: Cyanosis Neurological: Denies: Confusion, Dizziness, Headache - Patient Data Vitals - Most Recent: Last Vital Signs Temp 97.7 F 04/05/21 12:00 Pulse 81 03/31/21 09:00 Resp 18 04/05/21 13:00 BP 145/101 H 04/05/21 13:00 Pulse Ox 91 L 04/05/21 13:00 Weight - Most Recent: 91.354 kg I&O - Last 24 Hours: Intake & Output 04/04/21 04/05/21 04/05/21 22:59 06:59 14:59 Intake Total 700 400 Output Total 1200 650 Balance -500 -250 Lab Results Last 24 Hours: Laboratory Results - last 24 hr 04/05/21 04/05/21 Range/Units 05:33 05:33 WBC 6.57 (4.0-11.0) K/uL RBC 4.17 L (4.30-5.90) M/uL Hgb 12.1 (12.0-16.0) g/dL Hct 37.1 (36.0-46.0) % MCV 89.0 (80.0-98.0) fL MCH 29.0 (27.0-32.0) pg MCHC 32.6 (31.0-37.0) g/dL RDW Std Deviation 41.8 (28.0-62.0) fl RDW Coeff of Zulma 13 (11.0-15.0) % Plt Count 629 H (150-400) K/uL MPV 10.90 (7.40-12.00) fL Neut % (Auto) 75.9 (48.0-80.0) % Lymph % (Auto) 12.8 L (16.0-40.0) % [place] % (Auto) 8.1 (0.0-15.0) % Eos % (Auto) 2.9 (0.0-7.0) % Baso % (Auto) 0.3 (0.0-1.5) % Neut # (Auto) 5.0 (1.4-5.7) K/uL Lymph # (Auto) 0.8 (0.6-2.4) K/uL [place] # (Auto) 0.5 (0.0-0.8) K/uL Eos # (Auto) 0.2 (0.0-0.7) K/uL Baso # (Auto) 0.0 (0.0-0.1) K/uL Nucleated RBC % 0.0 /100WBC Nucleated RBCs # 0 K/uL Sodium 142 (136-145) mmol/L Potassium 4.3 (3.5-5.1) mmol/L Chloride 105 (98-107) mmol/L Carbon Dioxide 30.1 (21.0-32.0) mmol/L BUN 21 H (7.0-18.0) mg/dL Creatinine 1.0 (0.6-1.0) mg/dL Est Cr Clr Drug Dosing 69.98 mL/min Estimated GFR (MDRD) > 60.0 ml/min Glucose 112 H (74-106) mg/dL Calcium 8.4 L (8.5-10.1) mg/dL Total Bilirubin 0.4 (0.2-1.0) mg/dL AST 33 (15-37) IU/L ALT 96 H (14-63) IU/L Alkaline Phosphatase 76 (46-116) U/L Total Protein 6.5 (6.4-8.2) g/dL Albumin 2.3 L (3.4-5.0) g/dL Globulin 4.2 H (2.6-4.0) g/dL Albumin/Globulin Ratio 0.6 L (0.9-1.6) Med Orders - Current: Current Medications Acetaminophen (Acetaminophen 325 Mg Tab) 650 mg PO Q6H PRN PRN Reason: Pain/Fever Last Admin: 04/02/21 09:51 Dose: 650 mg Documented by: Albuterol/Ipratropium (Albuterol/Ipratropium 4 Gm Inhalation Kendall) 0 gm INH Q4HRRT [facility] Last Admin: 04/05/21 09:30 Dose: 1 puff Documented by: Baricitinib (Baricitinib 2 Mg Tab) 4 mg PO DAILY [facility] Last Admin: 04/05/21 09:32 Dose: 4 mg Documented by: Dexamethasone (Dexamethasone 4 Mg Tab) 6 mg PO DAILY [facility] Last Admin: 04/05/21 08:44 Dose: 6 mg Documented by: Enoxaparin Sodium (Enoxaparin 40 Mg/0.4 Ml Syringe) 40 mg SUBCUT Q24H [facility] Last Admin: 04/04/21 17:24 Dose: 40 mg Documented by: Guaifenesin/Codeine Phosphate (Codeine/Guaifenesin 10-100 Mg/5 Ml Syrup 5 Ml Cup) 5 ml PO Q4H PRN PRN Reason: Cough Last Admin: 04/01/21 02:03 Dose: 5 ml Documented by: Levofloxacin (Levofloxacin 750 Mg Tab) 750 mg PO Q24H [facility] Last Admin: 04/04/21 15:04 Dose: 750 mg Documented by: Ondansetron HCl (Ondansetron 4 Mg/2 Ml Sdv) 4 mg IVPUSH Q6H PRN PRN Reason: Nausea/Vomiting Pantoprazole Sodium (Pantoprazole 40 Mg Tab.Cr) 40 mg PO DAILY [facility] Last Admin: 04/05/21 08:44 Dose: 40 mg Documented by: Ramipril (Ramipril 10 Mg Cap) 10 mg PO DAILY [facility] Last Admin: 04/05/21 08:44 Dose: 10 mg Documented by: Sodium Chloride (Sodium Chloride 0.9% 10 Ml Syringe) 10 ml FLUSH ASDIRECTED PRN PRN Reason: Keep Vein Open Last Admin: 03/26/21 10:51 Dose: 10 ml Documented by: Sodium Chloride (Sodium Chloride 0.9% 2.5 Ml Syringe) 2.5 ml FLUSH ASDIRECTED PRN PRN Reason: Keep Vein Open Last Admin: 03/26/21 10:51 Dose: 2.5 ml Documented by: Vancomycin HCl (Pharmacy To Dose - Vancomycin) 1 dose .XX ASDIRECTED [facility] Discontinued Medications Acetaminophen (Acetaminophen 325 Mg Tab) 650 mg PO NOW ONE Stop: 03/26/21 10:45 Last Admin: 03/26/21 10:50 Dose: 650 mg Documented by: Albuterol/Ipratropium (Albuterol/Ipratropium 4 Gm Inhalation Kendall) 1 gm INH Q4HRRT PRN PRN Reason: Dyspnea Baricitinib (Baricitinib 2 Mg Tab) 4 mg PO DAILY [facility] Last Admin: 03/29/21 08:19 Dose: 4 mg Documented by: Guaifenesin/Dextromethorphan (Guaifenesin/Dextromethorphan 100-10 Mg/5 Ml Soln 10 Ml Cup) 10 ml PO Q4H PRN PRN Reason: Cough Last Admin: 03/27/21 09:24 Dose: 10 ml Documented by: Sodium Chloride (Normal Saline) 1,000 mls @ 999 mls/hr IV .BOLUS ONE Stop: 03/26/21 11:44 Last Admin: 03/26/21 10:51 Dose: 999 mls/hr Documented by: Remdesivir 200 mg/ Sodium (Chloride) 250 mls @ 250 mls/hr IV ONETIME ONE Stop: 03/26/21 13:29 Last Admin: 03/26/21 12:44 Dose: 250 mls/hr Documented by: Remdesivir 100 mg/ Sodium (Chloride) 100 mls @ 100 mls/hr IV Q24H [facility] Stop: 03/30/21 14:29 Last Admin: 03/30/21 12:35 Dose: 100 mls/hr Documented by: Levofloxacin/Dextrose 750 mg/ (Premix) 150 mls @ 100 mls/hr IV Q24H [facility] Last Admin: 03/26/21 22:45 Dose: 100 mls/hr Documented by: Piperacillin Sod/Tazobactam (Sod 4.5 gm/ Sodium Chloride) 100 mls @ 100 mls/hr IV Q8H [facility] Last Admin: 04/03/21 10:54 Dose: 100 mls/hr Documented by: Vancomycin HCl 1.5 gm/ Premix 300 mls @ 200 mls/hr IV Q8H [facility] Last Admin: 03/29/21 05:02 Dose: 200 mls/hr Documented by: Vancomycin HCl 1.5 gm/ Premix 300 mls @ 200 mls/hr IV Q8H [facility] Last Admin: 04/02/21 13:42 Dose: Not Given Documented by: Vancomycin HCl 1.25 gm/ Sodium (Chloride) 250 mls @ 166.667 mls/hr IV Q8H [facility] Last Admin: 04/04/21 06:16 Dose: 166.667 mls/hr Documented by: Ketorolac Tromethamine (Ketorolac 30 Mg/Ml Sdv) 30 mg IVPUSH ONETIME ONE Stop: 03/26/21 10:45 Last Admin: 03/26/21 10:50 Dose: 30 mg Documented by: Ondansetron HCl (Ondansetron 4 Mg/2 Ml Sdv) 4 mg IVPUSH ONETIME ONE Stop: 03/26/21 10:45 Last Admin: 03/26/21 10:50 Dose: 4 mg Documented by: Potassium Chloride (Potassium Chloride 20 Meq Tab.Er) 40 meq PO ONETIME ONE Stop: 03/26/21 20:01 Last Admin: 03/26/21 21:20 Dose: 40 meq Documented by: Ramipril (Ramipril 10 Mg Cap) 10 mg PO ONETIME ONE Stop: 03/26/21 21:16 Last Admin: 03/26/21 21:20 Dose: 10 mg Documented by: - Exam Quality Assessment: Supplemental Oxygen General: Alert, Oriented, Cooperative HEENT: Pupils Equal, Pupils Reactive Neck: Supple, Trachea Midline Lungs: Decreased Breath Sounds, Rales Cardiovascular: Regular Rate, Regular Rhythm GI/Abdominal Exam: Normal Bowel Sounds, Soft, Non-Tender, No Distention Extremities: Normal Inspection, No Pedal Edema. No: Azul's Sign Peripheral Pulses: 2+: Dorsalis Pedis (L), Dorsalis Pedis (R) Skin: Warm, Dry, Intact Neurological: No New Focal Deficit - Patient Data Lab Results Last 24 hrs: Laboratory Results - last 24 hr 04/05/21 04/05/21 Range/Units 05:33 05:33 WBC 6.57 (4.0-11.0) K/uL RBC 4.17 L (4.30-5.90) M/uL Hgb 12.1 (12.0-16.0) g/dL Hct 37.1 (36.0-46.0) % MCV 89.0 (80.0-98.0) fL MCH 29.0 (27.0-32.0) pg MCHC 32.6 (31.0-37.0) g/dL RDW Std Deviation 41.8 (28.0-62.0) fl RDW Coeff of Zulma 13 (11.0-15.0) % Plt Count 629 H (150-400) K/uL MPV 10.90 (7.40-12.00) fL Neut % (Auto) 75.9 (48.0-80.0) % Lymph % (Auto) 12.8 L (16.0-40.0) % [place] % (Auto) 8.1 (0.0-15.0) % Eos % (Auto) 2.9 (0.0-7.0) % Baso % (Auto) 0.3 (0.0-1.5) % Neut # (Auto) 5.0 (1.4-5.7) K/uL Lymph # (Auto) 0.8 (0.6-2.4) K/uL [place] # (Auto) 0.5 (0.0-0.8) K/uL Eos # (Auto) 0.2 (0.0-0.7) K/uL Baso # (Auto) 0.0 (0.0-0.1) K/uL Nucleated RBC % 0.0 /100WBC Nucleated RBCs # 0 K/uL Sodium 142 (136-145) mmol/L Potassium 4.3 (3.5-5.1) mmol/L Chloride 105 (98-107) mmol/L Carbon Dioxide 30.1 (21.0-32.0) mmol/L BUN 21 H (7.0-18.0) mg/dL Creatinine 1.0 (0.6-1.0) mg/dL Est Cr Clr Drug Dosing 69.98 mL/min Estimated GFR (MDRD) > 60.0 ml/min Glucose 112 H (74-106) mg/dL Calcium 8.4 L (8.5-10.1) mg/dL Total Bilirubin 0.4 (0.2-1.0) mg/dL AST 33 (15-37) IU/L ALT 96 H (14-63) IU/L Alkaline Phosphatase 76 (46-116) U/L Total Protein 6.5 (6.4-8.2) g/dL Albumin 2.3 L (3.4-5.0) g/dL Globulin 4.2 H (2.6-4.0) g/dL Albumin/Globulin Ratio 0.6 L (0.9-1.6) Result Diagrams: 04/05/21 05:33 04/05/21 05:33 Sepsis Event Note - Evaluation Sepsis Screening Result: No Definite Risk - Focused Exam Vital Signs: Vital Signs Temp Resp BP BP Pulse Ox 04/05/21 13:00 18 145/101 H 91 L 04/05/21 12:00 97.7 F 20 144/95 H 91 L 04/05/21 11:00 14 162/100 H 90 L 04/05/21 10:00 13 146/95 H 94 L 04/05/21 09:00 20 166/98 H 90 L 04/05/21 08:44 146/79 H 04/05/21 08:00 97.5 F 22 H 146/79 H 95 04/05/21 07:00 28 H 147/84 H 91 L 04/05/21 06:00 28 H 128/77 92 L 04/05/21 05:00 97.4 F 31 H 124/69 96 04/05/21 04:00 26 H 139/84 92 L 04/05/21 03:00 27 H 120/68 90 L - Problem List Review Problem List Initiated/Reviewed/Updated: Yes - Plan Plan:: Wean oxygen and transfer to general medical floor later today. 1. Acute hypoxic respiratory failure secondary to COVID-19 pneumonia -Continue dexamethasone 6 mg per oral route once a day -Continue baricitinib 4 mg per oral route once a day -Continue with Zofran as needed -Continue Combivent therapy -Continue Robitussin as needed -Wean off a tolerated. 2. Bacteremia -Cultures noted, most likely contaminant, will switch to oral Levaquin based on culture and sensitivity, send procal to [facility] -Monitor daily CBC/CMP 3. Hypertension -Continue ramipril <Chris Rivas - Last Filed: 04/06/21 23:19> - Patient Data Vitals - Most Recent: Last Vital Signs Temp 36.8 C 04/06/21 21:00 Pulse 74 04/06/21 21:00 Resp 18 04/06/21 21:00 BP 130/74 04/06/21 21:00 Pulse Ox 91 L 04/06/21 21:00 I&O - Last 24 Hours: Intake & Output 04/06/21 04/06/21 04/07/21 14:59 22:59 06:59 Intake Total 800 Balance 800 Lab Results Last 24 Hours: Laboratory Results - last 24 hr 04/05/21 04/06/21 04/06/21 Range/Units 05:33 05:45 05:45 WBC 7.45 (4.0-11.0) K/uL RBC 4.41 (4.30-5.90) M/uL Hgb 12.8 (12.0-16.0) g/dL Hct 39.2 (36.0-46.0) % MCV 88.9 (80.0-98.0) fL MCH 29.0 (27.0-32.0) pg MCHC 32.7 (31.0-37.0) g/dL RDW Std Deviation 41.4 (28.0-62.0) fl RDW Coeff of Zulma 13 (11.0-15.0) % Plt Count 619 H (150-400) K/uL MPV 10.90 (7.40-12.00) fL Neut % (Auto) 72.6 (48.0-80.0) % Lymph % (Auto) 17.0 (16.0-40.0) % [place] % (Auto) 8.5 (0.0-15.0) % Eos % (Auto) 1.6 (0.0-7.0) % Baso % (Auto) 0.3 (0.0-1.5) % Neut # (Auto) 5.4 (1.4-5.7) K/uL Lymph # (Auto) 1.3 (0.6-2.4) K/uL [place] # (Auto) 0.6 (0.0-0.8) K/uL Eos # (Auto) 0.1 (0.0-0.7) K/uL Baso # (Auto) 0.0 (0.0-0.1) K/uL Nucleated RBC % 0.0 /100WBC Nucleated RBCs # 0 K/uL Sodium 141 (136-145) mmol/L Potassium 4.5 (3.5-5.1) mmol/L Chloride 103 (98-107) mmol/L Carbon Dioxide 28.3 (21.0-32.0) mmol/L BUN 24 H (7.0-18.0) mg/dL Creatinine 1.0 (0.6-1.0) mg/dL Est Cr Clr Drug Dosing 69.98 mL/min Estimated GFR (MDRD) > 60.0 ml/min Glucose 79 (74-106) mg/dL Calcium 9.0 (8.5-10.1) mg/dL Total Bilirubin 0.4 (0.2-1.0) mg/dL AST 24 (15-37) IU/L ALT 91 H (14-63) IU/L Alkaline Phosphatase 72 (46-116) U/L Total Protein 7.0 (6.4-8.2) g/dL Albumin 2.5 L (3.4-5.0) g/dL Globulin 4.5 H (2.6-4.0) g/dL Albumin/Globulin Ratio 0.6 L (0.9-1.6) Procalcitonin 0.08 ng/mL Med Orders - Current: Current Medications Acetaminophen (Acetaminophen 325 Mg Tab) 650 mg PO Q6H PRN PRN Reason: Pain/Fever Last Admin: 04/02/21 09:51 Dose: 650 mg Documented by: Albuterol/Ipratropium (Albuterol/Ipratropium 4 Gm Inhalation Kend[place]) 0 gm INH Q4HRRT PRN PRN Reason: Wheezing Baricitinib (Baricitinib 2 Mg Tab) 4 mg PO DAILY [facility] Last Admin: 04/06/21 09:31 Dose: 4 mg Documented by: Dexamethasone (Dexamethasone 4 Mg Tab) 6 mg PO DAILY [facility] Last Admin: 04/06/21 09:32 Dose: 6 mg Documented by: Enoxaparin Sodium (Enoxaparin 40 Mg/0.4 Ml Syringe) 40 mg SUBCUT Q24H [facility] Last Admin: 04/06/21 17:33 Dose: 40 mg Documented by: Guaifenesin/Codeine Phosphate (Codeine/Guaifenesin 10-100 Mg/5 Ml Syrup 5 Ml Cup) 5 ml PO Q4H PRN PRN Reason: Cough Last Admin: 04/01/21 02:03 Dose: 5 ml Documented by: Levofloxacin (Levofloxacin 750 Mg Tab) 750 mg PO Q24H [facility] Last Admin: 04/06/21 15:35 Dose: 750 mg Documented by: Ondansetron HCl (Ondansetron 4 Mg/2 Ml Sdv) 4 mg IVPUSH Q6H PRN PRN Reason: Nausea/Vomiting Pantoprazole Sodium (Pantoprazole 40 Mg Tab.Cr) 40 mg PO DAILY [facility] Last Admin: 04/06/21 09:32 Dose: 40 mg Documented by: Ramipril (Ramipril 10 Mg Cap) 10 mg PO DAILY [facility] Last Admin: 04/06/21 09:31 Dose: 10 mg Documented by: Sodium Chloride (Sodium Chloride 0.9% 10 Ml Syringe) 10 ml FLUSH ASDIRECTED PRN PRN Reason: Keep Vein Open Last Admin: 03/26/21 10:51 Dose: 10 ml Documented by: Sodium Chloride (Sodium Chloride 0.9% 2.5 Ml Syringe) 2.5 ml FLUSH ASDIRECTED PRN PRN Reason: Keep Vein Open Last Admin: 03/26/21 10:51 Dose: 2.5 ml Documented by: Discontinued Medications Acetaminophen (Acetaminophen 325 Mg Tab) 650 mg PO NOW ONE Stop: 03/26/21 10:45 Last Admin: 03/26/21 10:50 Dose: 650 mg Documented by: Albuterol/Ipratropium (Albuterol/Ipratropium 4 Gm Inhalation Kend[place]) 1 gm INH Q4HRRT PRN PRN Reason: Dyspnea Albuterol/Ipratropium (Albuterol/Ipratropium 4 Gm Inhalation Kend[place]) 0 gm INH Q4HRRT [facility] Last Admin: 04/05/21 14:24 Dose: 1 puff Documented by: Baricitinib (Baricitinib 2 Mg Tab) 4 mg PO DAILY [facility] Last Admin: 03/29/21 08:19 Dose: 4 mg Documented by: Guaifenesin/Dextromethorphan (Guaifenesin/Dextromethorphan 100-10 Mg/5 Ml Soln 10 Ml Cup) 10 ml PO Q4H PRN PRN Reason: Cough Last Admin: 03/27/21 09:24 Dose: 10 ml Documented by: Sodium Chloride (Normal Saline) 1,000 mls @ 999 mls/hr IV .BOLUS ONE Stop: 03/26/21 11:44 Last Admin: 03/26/21 10:51 Dose: 999 mls/hr Documented by: Remdesivir 200 mg/ Sodium (Chloride) 250 mls @ 250 mls/hr IV ONETIME ONE Stop: 03/26/21 13:29 Last Admin: 03/26/21 12:44 Dose: 250 mls/hr Documented by: Remdesivir 100 mg/ Sodium (Chloride) 100 mls @ 100 mls/hr IV Q24H [facility] Stop: 03/30/21 14:29 Last Admin: 03/30/21 12:35 Dose: 100 mls/hr Documented by: Levofloxacin/Dextrose 750 mg/ (Premix) 150 mls @ 100 mls/hr IV Q24H [facility] Last Admin: 03/26/21 22:45 Dose: 100 mls/hr Documented by: Piperacillin Sod/Tazobactam (Sod 4.5 gm/ Sodium Chloride) 100 mls @ 100 mls/hr IV Q8H [facility] Last Admin: 04/03/21 10:54 Dose: 100 mls/hr Documented by: Vancomycin HCl 1.5 gm/ Premix 300 mls @ 200 mls/hr IV Q8H [facility] Last Admin: 03/29/21 05:02 Dose: 200 mls/hr Documented by: Vancomycin HCl 1.5 gm/ Premix 300 mls @ 200 mls/hr IV Q8H [facility] Last Admin: 04/02/21 13:42 Dose: Not Given Documented by: Vancomycin HCl 1.25 gm/ Sodium (Chloride) 250 mls @ 166.667 mls/hr IV Q8H [facility] Last Admin: 04/04/21 06:16 Dose: 166.667 mls/hr Documented by: Ketorolac Tromethamine (Ketorolac 30 Mg/Ml Sdv) 30 mg IVPUSH ONETIME ONE Stop: 03/26/21 10:45 Last Admin: 03/26/21 10:50 Dose: 30 mg Documented by: Ondansetron HCl (Ondansetron 4 Mg/2 Ml Sdv) 4 mg IVPUSH ONETIME ONE Stop: 03/26/21 10:45 Last Admin: 03/26/21 10:50 Dose: 4 mg Documented by: Potassium Chloride (Potassium Chloride 20 Meq Tab.Er) 40 meq PO ONETIME ONE Stop: 03/26/21 20:01 Last Admin: 03/26/21 21:20 Dose: 40 meq Documented by: Ramipril (Ramipril 10 Mg Cap) 10 mg PO ONETIME ONE Stop: 03/26/21 21:16 Last Admin: 03/26/21 21:20 Dose: 10 mg Documented by: Vancomycin HCl (Pharmacy To Dose - Vancomycin) 1 dose .XX ASDIRECTED [facility] - Patient Data Lab Results Last 24 hrs: Laboratory Results - last 24 hr 04/05/21 04/06/21 04/06/21 Range/Units 05:33 05:45 05:45 WBC 7.45 (4.0-11.0) K/uL RBC 4.41 (4.30-5.90) M/uL Hgb 12.8 (12.0-16.0) g/dL Hct 39.2 (36.0-46.0) % MCV 88.9 (80.0-98.0) fL MCH 29.0 (27.0-32.0) pg MCHC 32.7 (31.0-37.0) g/dL RDW Std Deviation 41.4 (28.0-62.0) fl RDW Coeff of Zulma 13 (11.0-15.0) % Plt Count 619 H (150-400) K/uL MPV 10.90 (7.40-12.00) fL Neut % (Auto) 72.6 (48.0-80.0) % Lymph % (Auto) 17.0 (16.0-40.0) % [place] % (Auto) 8.5 (0.0-15.0) % Eos % (Auto) 1.6 (0.0-7.0) % Baso % (Auto) 0.3 (0.0-1.5) % Neut # (Auto) 5.4 (1.4-5.7) K/uL Lymph # (Auto) 1.3 (0.6-2.4) K/uL [place] # (Auto) 0.6 (0.0-0.8) K/uL Eos # (Auto) 0.1 (0.0-0.7) K/uL Baso # (Auto) 0.0 (0.0-0.1) K/uL Nucleated RBC % 0.0 /100WBC Nucleated RBCs # 0 K/uL Sodium 141 (136-145) mmol/L Potassium 4.5 (3.5-5.1) mmol/L Chloride 103 (98-107) mmol/L Carbon Dioxide 28.3 (21.0-32.0) mmol/L BUN 24 H (7.0-18.0) mg/dL Creatinine 1.0 (0.6-1.0) mg/dL Est Cr Clr Drug Dosing 69.98 mL/min Estimated GFR (MDRD) > 60.0 ml/min Glucose 79 (74-106) mg/dL Calcium 9.0 (8.5-10.1) mg/dL Total Bilirubin 0.4 (0.2-1.0) mg/dL AST 24 (15-37) IU/L ALT 91 H (14-63) IU/L Alkaline Phosphatase 72 (46-116) U/L Total Protein 7.0 (6.4-8.2) g/dL Albumin 2.5 L (3.4-5.0) g/dL Globulin 4.5 H (2.6-4.0) g/dL Albumin/Globulin Ratio 0.6 L (0.9-1.6) Procalcitonin 0.08 ng/mL Result Diagrams: 04/06/21 05:45 04/06/21 05:45 Sepsis Event Note - Focused Exam Vital Signs: Vital Signs Temp Pulse Resp BP Pulse Ox 04/06/21 21:00 36.8 C 74 18 130/74 91 L 04/06/21 17:35 17 90 L 04/06/21 15:33 36.3 C 18 131/70 87 L 04/06/21 11:32 36.4 C 18 142/91 H 87 L - Problem List & Annotations (1) Acute respiratory failure with hypoxia SNOMED Code(s): 44983990, 745911677 Code(s): J96.01 - ACUTE RESPIRATORY FAILURE WITH HYPOXIA Status: Acute Current Visit: Yes (2) Hypertension SNOMED Code(s): 87375868 Code(s): I10 - ESSENTIAL (PRIMARY) HYPERTENSION Status: Acute Current Visit: Yes (3) Hypoxemia SNOMED Code(s): 034520259 Code(s): R09.02 - HYPOXEMIA Status: Acute Current Visit: Yes (4) Pneumonia due to COVID-19 virus SNOMED Code(s): 873982262203665568 Code(s): U07.1 - COVID-19; J12.82 - PNEUMONIA DUE TO CORONAVIRUS DISEASE 2019 Status: Acute Current Visit: Yes - Plan Plan:: I have seen and evaluated the patient and agree with the residents note unless specified in my note
[2021-04-05] MEDS ORDERED: Albuterol/Ipratropium 4 GM Inhalation Spray INH PRN (15:26)
[2021-04-05] MEDS: Levofloxacin 750 MG Tab PO SCH (17:12)
[2021-04-05] MEDS: Enoxaparin 40 MG/0.4 ML Syringe SUBCUT SCH (17:12)
[2021-04-06 06:54] LABS: BLOOD UREA NITROGEN,BUN 24 mg/dL (7.0-18.0); CARBON DIOXIDE,CO2 28.3 mmol/L (21.0-32.0); CHLORIDE,CL 103 mmol/L (98-107); GLUCOSE RANDOM 79 mg/dL (74-106); POTASSIUM,K 4.5 mmol/L (3.5-5.1); SODIUM,NA 141 mmol/L (136-145)
[2021-04-06] MEDS: Dexamethasone 4 MG Tab PO SCH (09:32)
[2021-04-06] MEDS: Pantoprazole 40 MG Tab.CR PO SCH (09:32)
--- NOTE | 2021-04-06 11:23 | PCM.PN ---
<Saige Kamara - Last Filed: 04/06/21 11:20> - General Info Date of Service: 04/06/21 Admission Dx/Problem (Free Text): Admission Diagnosis/Problem Admission Diagnosis/Problem Hypoxemia Subjective Update: 35-year-old female admitted for Covid pneumonia and bacteremia, currently on oral Levaquin. Patient was downgraded to the medical floor yesterday after her oxygen requirements were weaned down to 5 L. Patient states she feels better and is doing well this morning. Patient has good appetite and has had a bowel movement. Patient is currently on 5 L nasal cannula and saturating at 90%. Patient states she has shortness of breath with exertion while walking to the bathroom. Denies cough at rest but states she coughs after she ambulates. No fever or chills. - Review of Systems General: Denies: Fever, Chills HEENT: Denies: Headaches Pulmonary: Reports: Shortness of Breath, Cough Cardiovascular: Reports: Dyspnea on Exertion. Denies: Chest Pain, Palpitations Gastrointestinal: Denies: Abdominal Pain, Constipation, Decreased Appetite, Diarrhea, Nausea, Vomiting Genitourinary: Denies: Dysuria Musculoskeletal: Denies: Leg Pain Skin: Denies: Cyanosis, Rash Neurological: Denies: Confusion, Dizziness, Headache, Numbness, Paresthesia - Patient Data Vitals - Most Recent: Last Vital Signs Temp 97.8 F 04/06/21 07:40 Pulse 61 04/06/21 03:41 Resp 18 04/06/21 10:38 BP 135/90 04/06/21 09:31 Pulse Ox 92 L 04/06/21 10:38 Weight - Most Recent: 91.354 kg I&O - Last 24 Hours: Intake & Output 04/05/21 04/06/21 04/06/21 22:59 06:59 14:59 Intake Total 1080 150 Output Total 1500 Balance -420 150 Lab Results Last 24 Hours: Laboratory Results - last 24 hr 04/05/21 04/06/21 04/06/21 Range/Units 05:33 05:45 05:45 WBC 7.45 (4.0-11.0) K/uL RBC 4.41 (4.30-5.90) M/uL Hgb 12.8 (12.0-16.0) g/dL Hct 39.2 (36.0-46.0) % MCV 88.9 (80.0-98.0) fL MCH 29.0 (27.0-32.0) pg MCHC 32.7 (31.0-37.0) g/dL RDW Std Deviation 41.4 (28.0-62.0) fl RDW Coeff of Zulma 13 (11.0-15.0) % Plt Count 619 H (150-400) K/uL MPV 10.90 (7.40-12.00) fL Neut % (Auto) 72.6 (48.0-80.0) % Lymph % (Auto) 17.0 (16.0-40.0) % Greer % (Auto) 8.5 (0.0-15.0) % Eos % (Auto) 1.6 (0.0-7.0) % Baso % (Auto) 0.3 (0.0-1.5) % Neut # (Auto) 5.4 (1.4-5.7) K/uL Lymph # (Auto) 1.3 (0.6-2.4) K/uL Greer # (Auto) 0.6 (0.0-0.8) K/uL Eos # (Auto) 0.1 (0.0-0.7) K/uL Baso # (Auto) 0.0 (0.0-0.1) K/uL Nucleated RBC % 0.0 /100WBC Nucleated RBCs # 0 K/uL Sodium 141 (136-145) mmol/L Potassium 4.5 (3.5-5.1) mmol/L Chloride 103 (98-107) mmol/L Carbon Dioxide 28.3 (21.0-32.0) mmol/L BUN 24 H (7.0-18.0) mg/dL Creatinine 1.0 (0.6-1.0) mg/dL Est Cr Clr Drug Dosing 69.98 mL/min Estimated GFR (MDRD) > 60.0 ml/min Glucose 79 (74-106) mg/dL Calcium 9.0 (8.5-10.1) mg/dL Total Bilirubin 0.4 (0.2-1.0) mg/dL AST 24 (15-37) IU/L ALT 91 H (14-63) IU/L Alkaline Phosphatase 72 (46-116) U/L Total Protein 7.0 (6.4-8.2) g/dL Albumin 2.5 L (3.4-5.0) g/dL Globulin 4.5 H (2.6-4.0) g/dL Albumin/Globulin Ratio 0.6 L (0.9-1.6) Procalcitonin 0.08 ng/mL Med Orders - Current: Current Medications Acetaminophen (Acetaminophen 325 Mg Tab) 650 mg PO Q6H PRN PRN Reason: Pain/Fever Last Admin: 04/02/21 09:51 Dose: 650 mg Documented by: Albuterol/Ipratropium (Albuterol/Ipratropium 4 Gm Inhalation [place]) 0 gm INH Q4HRRT PRN PRN Reason: Wheezing Baricitinib (Baricitinib 2 Mg Tab) 4 mg PO DAILY [facility] Last Admin: 04/06/21 09:31 Dose: 4 mg Documented by: Dexamethasone (Dexamethasone 4 Mg Tab) 6 mg PO DAILY [facility] Last Admin: 04/06/21 09:32 Dose: 6 mg Documented by: Enoxaparin Sodium (Enoxaparin 40 Mg/0.4 Ml Syringe) 40 mg SUBCUT Q24H [facility] Last Admin: 04/05/21 17:12 Dose: 40 mg Documented by: Guaifenesin/Codeine Phosphate (Codeine/Guaifenesin 10-100 Mg/5 Ml Syrup 5 Ml Cup) 5 ml PO Q4H PRN PRN Reason: Cough Last Admin: 04/01/21 02:03 Dose: 5 ml Documented by: Levofloxacin (Levofloxacin 750 Mg Tab) 750 mg PO Q24H [facility] Last Admin: 04/05/21 17:12 Dose: 750 mg Documented by: Ondansetron HCl (Ondansetron 4 Mg/2 Ml Sdv) 4 mg IVPUSH Q6H PRN PRN Reason: Nausea/Vomiting Pantoprazole Sodium (Pantoprazole 40 Mg Tab.Cr) 40 mg PO DAILY [facility] Last Admin: 04/06/21 09:32 Dose: 40 mg Documented by: Ramipril (Ramipril 10 Mg Cap) 10 mg PO DAILY [facility] Last Admin: 04/06/21 09:31 Dose: 10 mg Documented by: Sodium Chloride (Sodium Chloride 0.9% 10 Ml Syringe) 10 ml FLUSH ASDIRECTED PRN PRN Reason: Keep Vein Open Last Admin: 03/26/21 10:51 Dose: 10 ml Documented by: Sodium Chloride (Sodium Chloride 0.9% 2.5 Ml Syringe) 2.5 ml FLUSH ASDIRECTED PRN PRN Reason: Keep Vein Open Last Admin: 03/26/21 10:51 Dose: 2.5 ml Documented by: Discontinued Medications Acetaminophen (Acetaminophen 325 Mg Tab) 650 mg PO NOW ONE Stop: 03/26/21 10:45 Last Admin: 03/26/21 10:50 Dose: 650 mg Documented by: Albuterol/Ipratropium (Albuterol/Ipratropium 4 Gm Inhalation [place]) 1 gm INH Q4HRRT PRN PRN Reason: Dyspnea Albuterol/Ipratropium (Albuterol/Ipratropium 4 Gm Inhalation [place]) 0 gm INH Q4HRRT [facility] Last Admin: 04/05/21 14:24 Dose: 1 puff Documented by: Baricitinib (Baricitinib 2 Mg Tab) 4 mg PO DAILY [facility] Last Admin: 03/29/21 08:19 Dose: 4 mg Documented by: Guaifenesin/Dextromethorphan (Guaifenesin/Dextromethorphan 100-10 Mg/5 Ml Soln 10 Ml Cup) 10 ml PO Q4H PRN PRN Reason: Cough Last Admin: 03/27/21 09:24 Dose: 10 ml Documented by: Sodium Chloride (Normal Saline) 1,000 mls @ 999 mls/hr IV .BOLUS ONE Stop: 03/26/21 11:44 Last Admin: 03/26/21 10:51 Dose: 999 mls/hr Documented by: Remdesivir 200 mg/ Sodium (Chloride) 250 mls @ 250 mls/hr IV ONETIME ONE Stop: 03/26/21 13:29 Last Admin: 03/26/21 12:44 Dose: 250 mls/hr Documented by: Remdesivir 100 mg/ Sodium (Chloride) 100 mls @ 100 mls/hr IV Q24H [facility] Stop: 03/30/21 14:29 Last Admin: 03/30/21 12:35 Dose: 100 mls/hr Documented by: Levofloxacin/Dextrose 750 mg/ (Premix) 150 mls @ 100 mls/hr IV Q24H [facility] Last Admin: 03/26/21 22:45 Dose: 100 mls/hr Documented by: Piperacillin Sod/Tazobactam (Sod 4.5 gm/ Sodium Chloride) 100 mls @ 100 mls/hr IV Q8H [facility] Last Admin: 04/03/21 10:54 Dose: 100 mls/hr Documented by: Vancomycin HCl 1.5 gm/ Premix 300 mls @ 200 mls/hr IV Q8H [facility] Last Admin: 03/29/21 05:02 Dose: 200 mls/hr Documented by: Vancomycin HCl 1.5 gm/ Premix 300 mls @ 200 mls/hr IV Q8H [facility] Last Admin: 04/02/21 13:42 Dose: Not Given Documented by: Vancomycin HCl 1.25 gm/ Sodium (Chloride) 250 mls @ 166.667 mls/hr IV Q8H [facility] Last Admin: 04/04/21 06:16 Dose: 166.667 mls/hr Documented by: Ketorolac Tromethamine (Ketorolac 30 Mg/Ml Sdv) 30 mg IVPUSH ONETIME ONE Stop: 03/26/21 10:45 Last Admin: 03/26/21 10:50 Dose: 30 mg Documented by: Ondansetron HCl (Ondansetron 4 Mg/2 Ml Sdv) 4 mg IVPUSH ONETIME ONE Stop: 03/26/21 10:45 Last Admin: 03/26/21 10:50 Dose: 4 mg Documented by: Potassium Chloride (Potassium Chloride 20 Meq Tab.Er) 40 meq PO ONETIME ONE Stop: 03/26/21 20:01 Last Admin: 03/26/21 21:20 Dose: 40 meq Documented by: Ramipril (Ramipril 10 Mg Cap) 10 mg PO ONETIME ONE Stop: 03/26/21 21:16 Last Admin: 03/26/21 21:20 Dose: 10 mg Documented by: Vancomycin HCl (Pharmacy To Dose - Vancomycin) 1 dose .XX ASDIRECTED [facility] - Exam Quality Assessment: Supplemental Oxygen General: Alert, Oriented, Cooperative HEENT: Pupils Equal, Pupils Reactive Neck: Supple, Trachea Midline Lungs: Decreased Breath Sounds, Crackles Cardiovascular: Regular Rate, Regular Rhythm, No Murmurs GI/Abdominal Exam: Normal Bowel Sounds, Soft, Non-Tender, No Distention Extremities: Normal Inspection, No Pedal Edema. No: Azul's Sign, Leg Pain Peripheral Pulses: 2+: Dorsalis Pedis (L), Dorsalis Pedis (R) Skin: Warm, Dry, Intact Neurological: No New Focal Deficit Psy/Mental Status: Alert, Normal Affect, Normal Mood - Patient Data Lab Results Last 24 hrs: Laboratory Results - last 24 hr 04/05/21 04/06/21 04/06/21 Range/Units 05:33 05:45 05:45 WBC 7.45 (4.0-11.0) K/uL RBC 4.41 (4.30-5.90) M/uL Hgb 12.8 (12.0-16.0) g/dL Hct 39.2 (36.0-46.0) % MCV 88.9 (80.0-98.0) fL MCH 29.0 (27.0-32.0) pg MCHC 32.7 (31.0-37.0) g/dL RDW Std Deviation 41.4 (28.0-62.0) fl RDW Coeff of Zulma 13 (11.0-15.0) % Plt Count 619 H (150-400) K/uL MPV 10.90 (7.40-12.00) fL Neut % (Auto) 72.6 (48.0-80.0) % Lymph % (Auto) 17.0 (16.0-40.0) % Greer % (Auto) 8.5 (0.0-15.0) % Eos % (Auto) 1.6 (0.0-7.0) % Baso % (Auto) 0.3 (0.0-1.5) % Neut # (Auto) 5.4 (1.4-5.7) K/uL Lymph # (Auto) 1.3 (0.6-2.4) K/uL Greer # (Auto) 0.6 (0.0-0.8) K/uL Eos # (Auto) 0.1 (0.0-0.7) K/uL Baso # (Auto) 0.0 (0.0-0.1) K/uL Nucleated RBC % 0.0 /100WBC Nucleated RBCs # 0 K/uL Sodium 141 (136-145) mmol/L Potassium 4.5 (3.5-5.1) mmol/L Chloride 103 (98-107) mmol/L Carbon Dioxide 28.3 (21.0-32.0) mmol/L BUN 24 H (7.0-18.0) mg/dL Creatinine 1.0 (0.6-1.0) mg/dL Est Cr Clr Drug Dosing 69.98 mL/min Estimated GFR (MDRD) > 60.0 ml/min Glucose 79 (74-106) mg/dL Calcium 9.0 (8.5-10.1) mg/dL Total Bilirubin 0.4 (0.2-1.0) mg/dL AST 24 (15-37) IU/L ALT 91 H (14-63) IU/L Alkaline Phosphatase 72 (46-116) U/L Total Protein 7.0 (6.4-8.2) g/dL Albumin 2.5 L (3.4-5.0) g/dL Globulin 4.5 H (2.6-4.0) g/dL Albumin/Globulin Ratio 0.6 L (0.9-1.6) Procalcitonin 0.08 ng/mL Result Diagrams: 04/06/21 05:45 04/06/21 05:45 Sepsis Event Note - Evaluation Sepsis Screening Result: No Definite Risk - Focused Exam Vital Signs: Vital Signs Temp Pulse Resp BP BP Pulse Ox 04/06/21 10:38 18 92 L 04/06/21 09:31 135/90 04/06/21 09:29 92 L 04/06/21 07:40 97.8 F 16 141/93 H 90 L 04/06/21 03:41 96.9 F 61 16 138/84 92 L 04/05/21 23:39 96.5 F L 59 L 16 130/72 91 L - Problem List Review Problem List Initiated/Reviewed/Updated: Yes - My Orders Last 24 Hours: My Active Orders 04/05/21 18:49 Transfer Patient (Change bed) [ADT] Routine 04/07/21 05:11 CBC WITH AUTO DIFF [HEME] DAILY COMPREHENSIVE METABOLIC PN,CMP [CHEM] DAILY 04/08/21 05:11 CBC WITH AUTO DIFF [HEME] DAILY COMPREHENSIVE METABOLIC PN,CMP [CHEM] DAILY 04/09/21 05:11 CBC WITH AUTO DIFF [HEME] DAILY COMPREHENSIVE METABOLIC PN,CMP [CHEM] DAILY 04/10/21 05:11 CBC WITH AUTO DIFF [HEME] DAILY COMPREHENSIVE METABOLIC PN,CMP [CHEM] DAILY - Plan Plan:: Wean oxygen and transfer to general medical floor later today. 1. Acute hypoxic respiratory failure secondary to COVID-19 pneumonia -Continue dexamethasone 6 mg per oral route once a day -Continue baricitinib 4 mg per oral route once a day -Continue with Zofran as needed -Continue Combivent therapy -Continue Robitussin as needed -Wean off a tolerated. 2. Bacteremia -Oral Levaquin. -Monitor daily CBC/CMP 3. Hypertension -Continue ramipril <Chris Rivas - Last Filed: 04/06/21 23:22> - Patient Data Vitals - Most Recent: Last Vital Signs Temp 36.8 C 04/06/21 21:00 Pulse 74 04/06/21 21:00 Resp 18 04/06/21 21:00 BP 130/74 04/06/21 21:00 Pulse Ox 91 L 04/06/21 21:00 I&O - Last 24 Hours: Intake & Output 04/06/21 04/06/21 04/07/21 14:59 22:59 06:59 Intake Total 800 Balance 800 Lab Results Last 24 Hours: Laboratory Results - last 24 hr 04/05/21 04/06/21 04/06/21 Range/Units 05:33 05:45 05:45 WBC 7.45 (4.0-11.0) K/uL RBC 4.41 (4.30-5.90) M/uL Hgb 12.8 (12.0-16.0) g/dL Hct 39.2 (36.0-46.0) % MCV 88.9 (80.0-98.0) fL MCH 29.0 (27.0-32.0) pg MCHC 32.7 (31.0-37.0) g/dL RDW Std Deviation 41.4 (28.0-62.0) fl RDW Coeff of Zulma 13 (11.0-15.0) % Plt Count 619 H (150-400) K/uL MPV 10.90 (7.40-12.00) fL Neut % (Auto) 72.6 (48.0-80.0) % Lymph % (Auto) 17.0 (16.0-40.0) % Greer % (Auto) 8.5 (0.0-15.0) % Eos % (Auto) 1.6 (0.0-7.0) % Baso % (Auto) 0.3 (0.0-1.5) % Neut # (Auto) 5.4 (1.4-5.7) K/uL Lymph # (Auto) 1.3 (0.6-2.4) K/uL Greer # (Auto) 0.6 (0.0-0.8) K/uL Eos # (Auto) 0.1 (0.0-0.7) K/uL Baso # (Auto) 0.0 (0.0-0.1) K/uL Nucleated RBC % 0.0 /100WBC Nucleated RBCs # 0 K/uL Sodium 141 (136-145) mmol/L Potassium 4.5 (3.5-5.1) mmol/L Chloride 103 (98-107) mmol/L Carbon Dioxide 28.3 (21.0-32.0) mmol/L BUN 24 H (7.0-18.0) mg/dL Creatinine 1.0 (0.6-1.0) mg/dL Est Cr Clr Drug Dosing 69.98 mL/min Estimated GFR (MDRD) > 60.0 ml/min Glucose 79 (74-106) mg/dL Calcium 9.0 (8.5-10.1) mg/dL Total Bilirubin 0.4 (0.2-1.0) mg/dL AST 24 (15-37) IU/L ALT 91 H (14-63) IU/L Alkaline Phosphatase 72 (46-116) U/L Total Protein 7.0 (6.4-8.2) g/dL Albumin 2.5 L (3.4-5.0) g/dL Globulin 4.5 H (2.6-4.0) g/dL Albumin/Globulin Ratio 0.6 L (0.9-1.6) Procalcitonin 0.08 ng/mL Med Orders - Current: Current Medications Acetaminophen (Acetaminophen 325 Mg Tab) 650 mg PO Q6H PRN PRN Reason: Pain/Fever Last Admin: 04/02/21 09:51 Dose: 650 mg Documented by: Albuterol/Ipratropium (Albuterol/Ipratropium 4 Gm Inhalation [place]) 0 gm INH Q4HRRT PRN PRN Reason: Wheezing Baricitinib (Baricitinib 2 Mg Tab) 4 mg PO DAILY [facility] Last Admin: 04/06/21 09:31 Dose: 4 mg Documented by: Dexamethasone (Dexamethasone 4 Mg Tab) 6 mg PO DAILY [facility] Last Admin: 04/06/21 09:32 Dose: 6 mg Documented by: Enoxaparin Sodium (Enoxaparin 40 Mg/0.4 Ml Syringe) 40 mg SUBCUT Q24H [facility] Last Admin: 04/06/21 17:33 Dose: 40 mg Documented by: Guaifenesin/Codeine Phosphate (Codeine/Guaifenesin 10-100 Mg/5 Ml Syrup 5 Ml Cup) 5 ml PO Q4H PRN PRN Reason: Cough Last Admin: 04/01/21 02:03 Dose: 5 ml Documented by: Levofloxacin (Levofloxacin 750 Mg Tab) 750 mg PO Q24H [facility] Last Admin: 04/06/21 15:35 Dose: 750 mg Documented by: Ondansetron HCl (Ondansetron 4 Mg/2 Ml Sdv) 4 mg IVPUSH Q6H PRN PRN Reason: Nausea/Vomiting Pantoprazole Sodium (Pantoprazole 40 Mg Tab.Cr) 40 mg PO DAILY [facility] Last Admin: 04/06/21 09:32 Dose: 40 mg Documented by: Ramipril (Ramipril 10 Mg Cap) 10 mg PO DAILY [facility] Last Admin: 04/06/21 09:31 Dose: 10 mg Documented by: Sodium Chloride (Sodium Chloride 0.9% 10 Ml Syringe) 10 ml FLUSH ASDIRECTED PRN PRN Reason: Keep Vein Open Last Admin: 03/26/21 10:51 Dose: 10 ml Documented by: Sodium Chloride (Sodium Chloride 0.9% 2.5 Ml Syringe) 2.5 ml FLUSH ASDIRECTED PRN PRN Reason: Keep Vein Open Last Admin: 03/26/21 10:51 Dose: 2.5 ml Documented by: Discontinued Medications Acetaminophen (Acetaminophen 325 Mg Tab) 650 mg PO NOW ONE Stop: 03/26/21 10:45 Last Admin: 03/26/21 10:50 Dose: 650 mg Documented by: Albuterol/Ipratropium (Albuterol/Ipratropium 4 Gm Inhalation [place]) 1 gm INH Q4HRRT PRN PRN Reason: Dyspnea Albuterol/Ipratropium (Albuterol/Ipratropium 4 Gm Inhalation [place]) 0 gm INH Q4HRRT [facility] Last Admin: 04/05/21 14:24 Dose: 1 puff Documented by: Baricitinib (Baricitinib 2 Mg Tab) 4 mg PO DAILY [facility] Last Admin: 03/29/21 08:19 Dose: 4 mg Documented by: Guaifenesin/Dextromethorphan (Guaifenesin/Dextromethorphan 100-10 Mg/5 Ml Soln 10 Ml Cup) 10 ml PO Q4H PRN PRN Reason: Cough Last Admin: 03/27/21 09:24 Dose: 10 ml Documented by: Sodium Chloride (Normal Saline) 1,000 mls @ 999 mls/hr IV .BOLUS ONE Stop: 03/26/21 11:44 Last Admin: 03/26/21 10:51 Dose: 999 mls/hr Documented by: Remdesivir 200 mg/ Sodium (Chloride) 250 mls @ 250 mls/hr IV ONETIME ONE Stop: 03/26/21 13:29 Last Admin: 03/26/21 12:44 Dose: 250 mls/hr Documented by: Remdesivir 100 mg/ Sodium (Chloride) 100 mls @ 100 mls/hr IV Q24H [facility] Stop: 03/30/21 14:29 Last Admin: 03/30/21 12:35 Dose: 100 mls/hr Documented by: Levofloxacin/Dextrose 750 mg/ (Premix) 150 mls @ 100 mls/hr IV Q24H [facility] Last Admin: 03/26/21 22:45 Dose: 100 mls/hr Documented by: Piperacillin Sod/Tazobactam (Sod 4.5 gm/ Sodium Chloride) 100 mls @ 100 mls/hr IV Q8H [facility] Last Admin: 04/03/21 10:54 Dose: 100 mls/hr Documented by: Vancomycin HCl 1.5 gm/ Premix 300 mls @ 200 mls/hr IV Q8H [facility] Last Admin: 03/29/21 05:02 Dose: 200 mls/hr Documented by: Vancomycin HCl 1.5 gm/ Premix 300 mls @ 200 mls/hr IV Q8H [facility] Last Admin: 04/02/21 13:42 Dose: Not Given Documented by: Vancomycin HCl 1.25 gm/ Sodium (Chloride) 250 mls @ 166.667 mls/hr IV Q8H [facility] Last Admin: 04/04/21 06:16 Dose: 166.667 mls/hr Documented by: Ketorolac Tromethamine (Ketorolac 30 Mg/Ml Sdv) 30 mg IVPUSH ONETIME ONE Stop: 03/26/21 10:45 Last Admin: 03/26/21 10:50 Dose: 30 mg Documented by: Ondansetron HCl (Ondansetron 4 Mg/2 Ml Sdv) 4 mg IVPUSH ONETIME ONE Stop: 03/26/21 10:45 Last Admin: 03/26/21 10:50 Dose: 4 mg Documented by: Potassium Chloride (Potassium Chloride 20 Meq Tab.Er) 40 meq PO ONETIME ONE Stop: 03/26/21 20:01 Last Admin: 03/26/21 21:20 Dose: 40 meq Documented by: Ramipril (Ramipril 10 Mg Cap) 10 mg PO ONETIME ONE Stop: 03/26/21 21:16 Last Admin: 03/26/21 21:20 Dose: 10 mg Documented by: Vancomycin HCl (Pharmacy To Dose - Vancomycin) 1 dose .XX ASDIRECTED [facility] - Patient Data Lab Results Last 24 hrs: Laboratory Results - last 24 hr 04/05/21 04/06/21 04/06/21 Range/Units 05:33 05:45 05:45 WBC 7.45 (4.0-11.0) K/uL RBC 4.41 (4.30-5.90) M/uL Hgb 12.8 (12.0-16.0) g/dL Hct 39.2 (36.0-46.0) % MCV 88.9 (80.0-98.0) fL MCH 29.0 (27.0-32.0) pg MCHC 32.7 (31.0-37.0) g/dL RDW Std Deviation 41.4 (28.0-62.0) fl RDW Coeff of Zulma 13 (11.0-15.0) % Plt Count 619 H (150-400) K/uL MPV 10.90 (7.40-12.00) fL Neut % (Auto) 72.6 (48.0-80.0) % Lymph % (Auto) 17.0 (16.0-40.0) % Greer % (Auto) 8.5 (0.0-15.0) % Eos % (Auto) 1.6 (0.0-7.0) % Baso % (Auto) 0.3 (0.0-1.5) % Neut # (Auto) 5.4 (1.4-5.7) K/uL Lymph # (Auto) 1.3 (0.6-2.4) K/uL Greer # (Auto) 0.6 (0.0-0.8) K/uL Eos # (Auto) 0.1 (0.0-0.7) K/uL Baso # (Auto) 0.0 (0.0-0.1) K/uL Nucleated RBC % 0.0 /100WBC Nucleated RBCs # 0 K/uL Sodium 141 (136-145) mmol/L Potassium 4.5 (3.5-5.1) mmol/L Chloride 103 (98-107) mmol/L Carbon Dioxide 28.3 (21.0-32.0) mmol/L BUN 24 H (7.0-18.0) mg/dL Creatinine 1.0 (0.6-1.0) mg/dL Est Cr Clr Drug Dosing 69.98 mL/min Estimated GFR (MDRD) > 60.0 ml/min Glucose 79 (74-106) mg/dL Calcium 9.0 (8.5-10.1) mg/dL Total Bilirubin 0.4 (0.2-1.0) mg/dL AST 24 (15-37) IU/L ALT 91 H (14-63) IU/L Alkaline Phosphatase 72 (46-116) U/L Total Protein 7.0 (6.4-8.2) g/dL Albumin 2.5 L (3.4-5.0) g/dL Globulin 4.5 H (2.6-4.0) g/dL Albumin/Globulin Ratio 0.6 L (0.9-1.6) Procalcitonin 0.08 ng/mL Result Diagrams: 04/06/21 05:45 04/06/21 05:45 Sepsis Event Note - Focused Exam Vital Signs: Vital Signs Temp Pulse Resp BP Pulse Ox 04/06/21 21:00 36.8 C 74 18 130/74 91 L 04/06/21 17:35 17 90 L 04/06/21 15:33 36.3 C 18 131/70 87 L 04/06/21 11:32 36.4 C 18 142/91 H 87 L - Problem List & Annotations (1) Acute respiratory failure with hypoxia SNOMED Code(s): 17506928, 887510744 Code(s): J96.01 - ACUTE RESPIRATORY FAILURE WITH HYPOXIA Status: Acute Current Visit: Yes (2) Hypertension SNOMED Code(s): 36862847 Code(s): I10 - ESSENTIAL (PRIMARY) HYPERTENSION Status: Acute Current Visit: Yes (3) Hypoxemia SNOMED Code(s): 871769942 Code(s): R09.02 - HYPOXEMIA Status: Acute Current Visit: Yes (4) Pneumonia due to COVID-19 virus SNOMED Code(s): 152389152041482968 Code(s): U07.1 - COVID-19; J12.82 - PNEUMONIA DUE TO CORONAVIRUS DISEASE 2019 Status: Acute Current Visit: Yes - Plan Plan:: I have seen and evaluated the patient and agree with the residents note unless specified in my note
[2021-04-06] MEDS: Levofloxacin 750 MG Tab PO SCH (15:35)
[2021-04-06] MEDS: Enoxaparin 40 MG/0.4 ML Syringe SUBCUT SCH (17:33)
[2021-04-07 06:49] LABS: CARBON DIOXIDE,CO2 27.9 mmol/L (21.0-32.0); POTASSIUM,K 4.3 mmol/L (3.5-5.1)
[2021-04-07] MEDS: Dexamethasone 4 MG Tab PO SCH (08:20)
[2021-04-07] MEDS: Pantoprazole 40 MG Tab.CR PO SCH (08:21)
--- NOTE | 2021-04-07 10:35 | PCM.DCSUM1 ---
Discharge Summary - Discharge Data Discharge Date: 04/07/21 Discharge Disposition: Home, Self-Care 01 Condition: Good - Referral to Home Health Primary Care Physician: Chad Baptiste Service - Patient Instructions Diet: Usual Diet as Tolerated Activity: As Tolerated Notify Provider of: Fever, Increased Pain Other/Special Instructions: Please seek immediate medical attention if you experience worsening fever, chills, increased shortness of breath, chest pain, palpitations, dizziness, lightheadedness, loss of consciousness. - Discharge Plan *PRESCRIPTION DRUG MONITORING PROGRAM REVIEWED*: Not Applicable *COPY OF PRESCRIPTION DRUG MONITORING REPORT IN PATIENT ELISA: Not Applicable Home Medications: Home Meds Ramipril 10 mg PO DAILY 03/23/21 [History] Patient Handouts: COVID-19 Frequently Asked Questions, COVID-19, COVID-19: How to Protect Yourself and Others - CDC, Frequently Asked Questions About COVID-19 Vaccination - [facility] (12/01/2020), Infection Prevention in the Home Referrals: Maryjo Everett, [employer] DAT[employer]ELOPER [Ordering Only Provider] - 04/20/21 9:00 am - Patient Data Vitals - Most Recent: Last Vital Signs Temp 96.7 F L 04/07/21 08:19 Pulse 58 L 04/07/21 08:19 Resp 18 04/07/21 08:19 BP 141/95 H 04/07/21 08:21 Pulse Ox 90 L 04/07/21 08:19 Weight - Most Recent: 201 lb 6.4 oz I&O - Last 24 hours: Intake & Output 04/06/21 04/07/21 04/07/21 22:59 06:59 14:59 Intake Total 800 150 Output Total 0 Balance 800 150 Lab Results - Last 24 hrs: Laboratory Results - last 24 hr 04/07/21 04/07/21 Range/Units 05:50 05:50 WBC 6.38 (4.0-11.0) K/uL RBC 4.46 (4.30-5.90) M/uL Hgb 13.1 (12.0-16.0) g/dL Hct 40.1 (36.0-46.0) % MCV 89.9 (80.0-98.0) fL MCH 29.4 (27.0-32.0) pg MCHC 32.7 (31.0-37.0) g/dL RDW Std Deviation 43.3 (28.0-62.0) fl RDW Coeff of [place] 13 (11.0-15.0) % Plt Count 671 H (150-400) K/uL MPV 10.60 (7.40-12.00) fL Neut % (Auto) 71.3 (48.0-80.0) % Lymph % (Auto) 21.5 (16.0-40.0) % [place] % (Auto) 6.1 (0.0-15.0) % Eos % (Auto) 0.9 (0.0-7.0) % Baso % (Auto) 0.2 (0.0-1.5) % Neut # (Auto) 4.6 (1.4-5.7) K/uL Lymph # (Auto) 1.4 (0.6-2.4) K/uL [place] # (Auto) 0.4 (0.0-0.8) K/uL Eos # (Auto) 0.1 (0.0-0.7) K/uL Baso # (Auto) 0.0 (0.0-0.1) K/uL Nucleated RBC % 0.0 /100WBC Nucleated RBCs # 0 K/uL Sodium 142 (136-145) mmol/L Potassium 4.3 (3.5-5.1) mmol/L Chloride 104 (98-107) mmol/L Carbon Dioxide 27.9 (21.0-32.0) mmol/L BUN 28 H (7.0-18.0) mg/dL Creatinine 1.1 H (0.6-1.0) mg/dL Est Cr Clr Drug Dosing 63.62 mL/min Estimated GFR (MDRD) 56.2 ml/min Glucose 91 (74-106) mg/dL Calcium 9.1 (8.5-10.1) mg/dL Total Bilirubin 0.4 (0.2-1.0) mg/dL AST 20 (15-37) IU/L ALT 82 H (14-63) IU/L Alkaline Phosphatase 76 (46-116) U/L Total Protein 7.0 (6.4-8.2) g/dL Albumin 2.6 L (3.4-5.0) g/dL Globulin 4.4 H (2.6-4.0) g/dL Albumin/Globulin Ratio 0.6 L (0.9-1.6) Med Orders - Current: Current Medications Acetaminophen (Acetaminophen 325 Mg Tab) 650 mg PO Q6H PRN PRN Reason: Pain/Fever Last Admin: 04/02/21 09:51 Dose: 650 mg Documented by: Albuterol/Ipratropium (Albuterol/Ipratropium 4 Gm Inhalation [place]) 0 gm INH Q4HRRT PRN PRN Reason: Wheezing Baricitinib (Baricitinib 2 Mg Tab) 4 mg PO DAILY [facility] Last Admin: 04/07/21 08:21 Dose: 4 mg Documented by: Dexamethasone (Dexamethasone 4 Mg Tab) 6 mg PO DAILY [facility] Last Admin: 04/07/21 08:20 Dose: 6 mg Documented by: Enoxaparin Sodium (Enoxaparin 40 Mg/0.4 Ml Syringe) 40 mg SUBCUT Q24H [facility] Last Admin: 04/06/21 17:33 Dose: 40 mg Documented by: Guaifenesin/Codeine Phosphate (Codeine/Guaifenesin 10-100 Mg/5 Ml Syrup 5 Ml Cup) 5 ml PO Q4H PRN PRN Reason: Cough Last Admin: 04/01/21 02:03 Dose: 5 ml Documented by: Levofloxacin (Levofloxacin 750 Mg Tab) 750 mg PO Q24H [facility] Last Admin: 04/06/21 15:35 Dose: 750 mg Documented by: Ondansetron HCl (Ondansetron 4 Mg/2 Ml Sdv) 4 mg IVPUSH Q6H PRN PRN Reason: Nausea/Vomiting Pantoprazole Sodium (Pantoprazole 40 Mg Tab.Cr) 40 mg PO DAILY [facility] Last Admin: 04/07/21 08:21 Dose: 40 mg Documented by: Ramipril (Ramipril 10 Mg Cap) 10 mg PO DAILY [facility] Last Admin: 04/07/21 08:21 Dose: 10 mg Documented by: Sodium Chloride (Sodium Chloride 0.9% 10 Ml Syringe) 10 ml FLUSH ASDIRECTED PRN PRN Reason: Keep Vein Open Last Admin: 03/26/21 10:51 Dose: 10 ml Documented by: Sodium Chloride (Sodium Chloride 0.9% 2.5 Ml Syringe) 2.5 ml FLUSH ASDIRECTED PRN PRN Reason: Keep Vein Open Last Admin: 03/26/21 10:51 Dose: 2.5 ml Documented by: Discontinued Medications Acetaminophen (Acetaminophen 325 Mg Tab) 650 mg PO NOW ONE Stop: 03/26/21 10:45 Last Admin: 03/26/21 10:50 Dose: 650 mg Documented by: Albuterol/Ipratropium (Albuterol/Ipratropium 4 Gm Inhalation [place]) 1 gm INH Q4HRRT PRN PRN Reason: Dyspnea Albuterol/Ipratropium (Albuterol/Ipratropium 4 Gm Inhalation [place]) 0 gm INH Q4HRRT [facility] Last Admin: 04/05/21 14:24 Dose: 1 puff Documented by: Baricitinib (Baricitinib 2 Mg Tab) 4 mg PO DAILY [facility] Last Admin: 03/29/21 08:19 Dose: 4 mg Documented by: Guaifenesin/Dextromethorphan (Guaifenesin/Dextromethorphan 100-10 Mg/5 Ml Soln 10 Ml Cup) 10 ml PO Q4H PRN PRN Reason: Cough Last Admin: 03/27/21 09:24 Dose: 10 ml Documented by: Sodium Chloride (Normal Saline) 1,000 mls @ 999 mls/hr IV .BOLUS ONE Stop: 03/26/21 11:44 Last Admin: 03/26/21 10:51 Dose: 999 mls/hr Documented by: Remdesivir 200 mg/ Sodium (Chloride) 250 mls @ 250 mls/hr IV ONETIME ONE Stop: 03/26/21 13:29 Last Admin: 03/26/21 12:44 Dose: 250 mls/hr Documented by: Remdesivir 100 mg/ Sodium (Chloride) 100 mls @ 100 mls/hr IV Q24H [place] Stop: 03/30/21 14:29 Last Admin: 03/30/21 12:35 Dose: 100 mls/hr Documented by: Levofloxacin/Dextrose 750 mg/ (Premix) 150 mls @ 100 mls/hr IV Q24H [facility] Last Admin: 03/26/21 22:45 Dose: 100 mls/hr Documented by: Piperacillin Sod/Tazobactam (Sod 4.5 gm/ Sodium Chloride) 100 mls @ 100 mls/hr IV Q8H [facility] Last Admin: 04/03/21 10:54 Dose: 100 mls/hr Documented by: Vancomycin HCl 1.5 gm/ Premix 300 mls @ 200 mls/hr IV Q8H [facility] Last Admin: 03/29/21 05:02 Dose: 200 mls/hr Documented by: Vancomycin HCl 1.5 gm/ Premix 300 mls @ 200 mls/hr IV Q8H [facility] Last Admin: 04/02/21 13:42 Dose: Not Given Documented by: Vancomycin HCl 1.25 gm/ Sodium (Chloride) 250 mls @ 166.667 mls/hr IV Q8H [facility] Last Admin: 04/04/21 06:16 Dose: 166.667 mls/hr Documented by: Ketorolac Tromethamine (Ketorolac 30 Mg/Ml Sdv) 30 mg IVPUSH ONETIME ONE Stop: 03/26/21 10:45 Last Admin: 03/26/21 10:50 Dose: 30 mg Documented by: Ondansetron HCl (Ondansetron 4 Mg/2 Ml Sdv) 4 mg IVPUSH ONETIME ONE Stop: 03/26/21 10:45 Last Admin: 03/26/21 10:50 Dose: 4 mg Documented by: Potassium Chloride (Potassium Chloride 20 Meq Tab.Er) 40 meq PO ONETIME ONE Stop: 03/26/21 20:01 Last Admin: 03/26/21 21:20 Dose: 40 meq Documented by: Ramipril (Ramipril 10 Mg Cap) 10 mg PO ONETIME ONE Stop: 03/26/21 21:16 Last Admin: 03/26/21 21:20 Dose: 10 mg Documented by: Vancomycin HCl (Pharmacy To Dose - Vancomycin) 1 dose .XX ASDIRECTED [facility]
--- NOTE | 2021-04-07 11:34 | PCM.DCSUM1 ---
<Saige Kamara - Last Filed: 04/07/21 11:40> Discharge Summary - Hospital Course Free Text/Narrative:: 35-year-old female with a history of hypertension was admitted for Covid pneumonia on 03/26/2021. Patient presented to the ER with 1 week of shortness of breath, nausea, vomiting and headache. WBC was 9.22, Hgb 12.7, sodium 135, potassium 3.2. Patient was febrile at 104.4 and tachycardic, pulse 103. Patient was saturating at 77% on room air. Patient was placed on heated high flow at 45, FiO2 75. Patient spent 4 nights in ICU. Patient received remdesivir, dexamethasone, Combivent, and oxygen therapy. Patient potassium was repleted. Blood cultures grew gram-positive which was likely a contaminant. Patient received and Zosyn. Patient was transitioned to 5 days of oral levofloxacin. Oxygen requirements improved and patient was transferred to the medical floor. Patient is stable and currently on 2 L nasal cannula saturating at 92%. Patient will be sent home on oxygen. Patient will use 3 L with exertion and 2 L at rest. - Discharge Data Discharge Date: 04/07/21 Discharge Disposition: Home, Self-Care 01 Condition: Good - Referral to Home Health Primary Care Physician: [facility] - Patient Instructions Diet: Usual Diet as Tolerated Activity: As Tolerated Notify Provider of: Fever, Increased Pain Other/Special Instructions: Please seek immediate medical attention if you experience worsening fever, chills, increased shortness of breath, chest pain, palpitations, dizziness, lightheadedness, loss of consciousness. You are being sent home on oxygen nasal cannula. As discussed please use 3 L nasal cannula w hile walking or exerting yourself. Please use 2 L nasal cannula at rest. As discussed please purchase a pulse oximeter to monitor your oxygen level. If your oxygen needs suddenly increase please seek medical attention immediately. You have been sent a prescription for an albuterol inhaler which is to be used when you experience shortness of breath. - Discharge Plan *PRESCRIPTION DRUG MONITORING PROGRAM REVIEWED*: Not Applicable *COPY OF PRESCRIPTION DRUG MONITORING REPORT IN PATIENT ELISA: Not Applicable Prescriptions/Med Rec: Albuterol Sulfate [Albuterol Sulfate HFA] 8.5 gm INH Q2H #1 ea guaiFENesin [Robitussin] 100 mg PO Q6H PRN #1 cap PRN Reason: Cough Home Medications: Home Meds Ramipril 10 mg PO DAILY 03/23/21 [History] Albuterol Sulfate [Albuterol Sulfate HFA] 8.5 gm INH Q2H #1 ea 04/07/21 [Rx] guaiFENesin [Robitussin] 100 mg PO Q6H PRN #1 cap 04/07/21 [Rx] Oxygen Therapy Mode: Nasal Cannula Oxygen Flow Rate (L/min): 3 Patient Handouts: Albuterol inhalation powder, COVID-19 Frequently Asked Questions, COVID-19, Guaifenesin oral solution and syrup, COVID-19: How to Protect Yourself and Others - CDC, Frequently Asked Questions About COVID-19 Vaccination - [facility] (12/01/2020), Infection Prevention in the Home Referrals: Maryjo Everett NP [Ordering Only Provider] - 04/20/21 9:00 am - Discharge Summary/Plan Comment DC Time >30 min.: Yes Total # of Minutes for Discharge Time: 45 - General Info Admission Dx/Problem (Free Text: Admission Diagnosis/Problem Admission Diagnosis/Problem Hypoxemia - Review of Systems General: Denies: Fever, Chills HEENT: Denies: Sinus Congestion, Sore Throat Pulmonary: Denies: Shortness of Breath, Pleuritic Chest Pain, Cough Cardiovascular: Reports: Dyspnea on Exertion. Denies: Chest Pain, Palpitations Gastrointestinal: Denies: Abdominal Pain, Constipation, Decreased Appetite, Diarrhea, Nausea, Vomiting Genitourinary: Denies: Dysuria Musculoskeletal: Denies: Leg Pain Skin: Denies: Rash Neurological: Denies: Confusion, Dizziness, Headache, Numbness, Paresthesia - Patient Data Vitals - Most Recent: Last Vital Signs Temp 96.7 F L 04/07/21 08:19 Pulse 58 L 04/07/21 08:19 Resp 18 04/07/21 08:19 BP 141/95 H 04/07/21 08:21 Pulse Ox 90 L 04/07/21 08:19 Weight - Most Recent: 91.354 kg I&O - Last 24 hours: Intake & Output 04/06/21 04/07/21 04/07/21 22:59 06:59 14:59 Intake Total 800 150 Output Total 0 Balance 800 150 Lab Results - Last 24 hrs: Laboratory Results - last 24 hr 04/07/21 04/07/21 Range/Units 05:50 05:50 WBC 6.38 (4.0-11.0) K/uL RBC 4.46 (4.30-5.90) M/uL Hgb 13.1 (12.0-16.0) g/dL Hct 40.1 (36.0-46.0) % MCV 89.9 (80.0-98.0) fL MCH 29.4 (27.0-32.0) pg MCHC 32.7 (31.0-37.0) g/dL RDW Std Deviation 43.3 (28.0-62.0) fl RDW Coeff of Zulma 13 (11.0-15.0) % Plt Count 671 H (150-400) K/uL MPV 10.60 (7.40-12.00) fL Neut % (Auto) 71.3 (48.0-80.0) % Lymph % (Auto) 21.5 (16.0-40.0) % [place] % (Auto) 6.1 (0.0-15.0) % Eos % (Auto) 0.9 (0.0-7.0) % Baso % (Auto) 0.2 (0.0-1.5) % Neut # (Auto) 4.6 (1.4-5.7) K/uL Lymph # (Auto) 1.4 (0.6-2.4) K/uL [place] # (Auto) 0.4 (0.0-0.8) K/uL Eos # (Auto) 0.1 (0.0-0.7) K/uL Baso # (Auto) 0.0 (0.0-0.1) K/uL Nucleated RBC % 0.0 /100WBC Nucleated RBCs # 0 K/uL Sodium 142 (136-145) mmol/L Potassium 4.3 (3.5-5.1) mmol/L Chloride 104 (98-107) mmol/L Carbon Dioxide 27.9 (21.0-32.0) mmol/L BUN 28 H (7.0-18.0) mg/dL Creatinine 1.1 H (0.6-1.0) mg/dL Est Cr Clr Drug Dosing 63.62 mL/min Estimated GFR (MDRD) 56.2 ml/min Glucose 91 (74-106) mg/dL Calcium 9.1 (8.5-10.1) mg/dL Total Bilirubin 0.4 (0.2-1.0) mg/dL AST 20 (15-37) IU/L ALT 82 H (14-63) IU/L Alkaline Phosphatase 76 (46-116) U/L Total Protein 7.0 (6.4-8.2) g/dL Albumin 2.6 L (3.4-5.0) g/dL Globulin 4.4 H (2.6-4.0) g/dL Albumin/Globulin Ratio 0.6 L (0.9-1.6) Med Orders - Current: Current Medications Acetaminophen (Acetaminophen 325 Mg Tab) 650 mg PO Q6H PRN PRN Reason: Pain/Fever Last Admin: 04/02/21 09:51 Dose: 650 mg Documented by: Albuterol/Ipratropium (Albuterol/Ipratropium 4 Gm Inhalation [place]) 0 gm INH Q4HRRT PRN PRN Reason: Wheezing Baricitinib (Baricitinib 2 Mg Tab) 4 mg PO DAILY [facility] Last Admin: 04/07/21 08:21 Dose: 4 mg Documented by: Dexamethasone (Dexamethasone 4 Mg Tab) 6 mg PO DAILY [facility] Last Admin: 04/07/21 08:20 Dose: 6 mg Documented by: Enoxaparin Sodium (Enoxaparin 40 Mg/0.4 Ml Syringe) 40 mg SUBCUT Q24H [facility] Last Admin: 04/06/21 17:33 Dose: 40 mg Documented by: Guaifenesin/Codeine Phosphate (Codeine/Guaifenesin 10-100 Mg/5 Ml Syrup 5 Ml Cup) 5 ml PO Q4H PRN PRN Reason: Cough Last Admin: 04/01/21 02:03 Dose: 5 ml Documented by: Levofloxacin (Levofloxacin 750 Mg Tab) 750 mg PO Q24H [facility] Last Admin: 04/06/21 15:35 Dose: 750 mg Documented by: Ondansetron HCl (Ondansetron 4 Mg/2 Ml Sdv) 4 mg IVPUSH Q6H PRN PRN Reason: Nausea/Vomiting Pantoprazole Sodium (Pantoprazole 40 Mg Tab.Cr) 40 mg PO DAILY [facility] Last Admin: 04/07/21 08:21 Dose: 40 mg Documented by: Ramipril (Ramipril 10 Mg Cap) 10 mg PO DAILY [facility] Last Admin: 04/07/21 08:21 Dose: 10 mg Documented by: Sodium Chloride (Sodium Chloride 0.9% 10 Ml Syringe) 10 ml FLUSH ASDIRECTED PRN PRN Reason: Keep Vein Open Last Admin: 03/26/21 10:51 Dose: 10 ml Documented by: Sodium Chloride (Sodium Chloride 0.9% 2.5 Ml Syringe) 2.5 ml FLUSH ASDIRECTED PRN PRN Reason: Keep Vein Open Last Admin: 03/26/21 10:51 Dose: 2.5 ml Documented by: Discontinued Medications Acetaminophen (Acetaminophen 325 Mg Tab) 650 mg PO NOW ONE Stop: 03/26/21 10:45 Last Admin: 03/26/21 10:50 Dose: 650 mg Documented by: Albuterol/Ipratropium (Albuterol/Ipratropium 4 Gm Inhalation [place]) 1 gm INH Q4HRRT PRN PRN Reason: Dyspnea Albuterol/Ipratropium (Albuterol/Ipratropium 4 Gm Inhalation [place]) 0 gm INH Q4HRRT [facility] Last Admin: 04/05/21 14:24 Dose: 1 puff Documented by: Baricitinib (Baricitinib 2 Mg Tab) 4 mg PO DAILY [facility] Last Admin: 03/29/21 08:19 Dose: 4 mg Documented by: Guaifenesin/Dextromethorphan (Guaifenesin/Dextromethorphan 100-10 Mg/5 Ml Soln 10 Ml Cup) 10 ml PO Q4H PRN PRN Reason: Cough Last Admin: 03/27/21 09:24 Dose: 10 ml Documented by: Sodium Chloride (Normal Saline) 1,000 mls @ 999 mls/hr IV .BOLUS ONE Stop: 03/26/21 11:44 Last Admin: 03/26/21 10:51 Dose: 999 mls/hr Documented by: Remdesivir 200 mg/ Sodium (Chloride) 250 mls @ 250 mls/hr IV ONETIME ONE Stop: 03/26/21 13:29 Last Admin: 03/26/21 12:44 Dose: 250 mls/hr Documented by: Remdesivir 100 mg/ Sodium (Chloride) 100 mls @ 100 mls/hr IV Q24H [facility] Stop: 03/30/21 14:29 Last Admin: 03/30/21 12:35 Dose: 100 mls/hr Documented by: Levofloxacin/Dextrose 750 mg/ (Premix) 150 mls @ 100 mls/hr IV Q24H [facility] Last Admin: 03/26/21 22:45 Dose: 100 mls/hr Documented by: Piperacillin Sod/Tazobactam (Sod 4.5 gm/ Sodium Chloride) 100 mls @ 100 mls/hr IV Q8H [facility] Last Admin: 04/03/21 10:54 Dose: 100 mls/hr Documented by: Vancomycin HCl 1.5 gm/ Premix 300 mls @ 200 mls/hr IV Q8H [facility] Last Admin: 03/29/21 05:02 Dose: 200 mls/hr Documented by: Vancomycin HCl 1.5 gm/ Premix 300 mls @ 200 mls/hr IV Q8H [facility] Last Admin: 04/02/21 13:42 Dose: Not Given Documented by: Vancomycin HCl 1.25 gm/ Sodium (Chloride) 250 mls @ 166.667 mls/hr IV Q8H [facility] Last Admin: 04/04/21 06:16 Dose: 166.667 mls/hr Documented by: Ketorolac Tromethamine (Ketorolac 30 Mg/Ml Sdv) 30 mg IVPUSH ONETIME ONE Stop: 03/26/21 10:45 Last Admin: 03/26/21 10:50 Dose: 30 mg Documented by: Ondansetron HCl (Ondansetron 4 Mg/2 Ml Sdv) 4 mg IVPUSH ONETIME ONE Stop: 03/26/21 10:45 Last Admin: 03/26/21 10:50 Dose: 4 mg Documented by: Potassium Chloride (Potassium Chloride 20 Meq Tab.Er) 40 meq PO ONETIME ONE Stop: 03/26/21 20:01 Last Admin: 03/26/21 21:20 Dose: 40 meq Documented by: Ramipril (Ramipril 10 Mg Cap) 10 mg PO ONETIME ONE Stop: 03/26/21 21:16 Last Admin: 03/26/21 21:20 Dose: 10 mg Documented by: Vancomycin HCl (Pharmacy To Dose - Vancomycin) 1 dose .XX ASDIRECTED [facility] - Exam Quality Assessment: Reports: Supplemental Oxygen General: Reports: Alert, Oriented, Cooperative, No Acute Distress HEENT: Reports: Pupils Equal, Pupils Reactive Neck: Reports: Supple, Trachea Midline Lungs: Reports: Normal Respiratory Effort, Decreased Breath Sounds. Denies: Wheezing Cardiovascular: Reports: Regular Rate, Regular Rhythm GI/Abdominal Exam: Normal Bowel Sounds, Soft, Non-Tender Back Exam: Reports: Normal Inspection. Denies: CVA Tenderness (L), CVA Tenderness (R) Extremities: Normal Inspection, Normal Range of Motion, Non-Tender, No Pedal Edema. No: Azul's Sign Skin: Reports: Warm, Dry, Intact Neurological: Reports: No New Focal Deficit <Chris Rivas - Last Filed: 04/07/21 14:25> Discharge Summary - Hospital Course Free Text/Narrative:: I have seen and evaluated the patient and agree with the residents note unless specified in my note - Referral to Home Health Primary [facility] Physician: [facility] - Discharge Diagnosis/Problem(s) (1) Acute respiratory failure with hypoxia SNOMED Code(s): 27659965, 223481427 ICD Code: J96.01 - ACUTE RESPIRATORY FAILURE WITH HYPOXIA Status: Acute Current Visit: Yes (2) Hypertension SNOMED Code(s): 16490564 ICD Code: I10 - ESSENTIAL (PRIMARY) HYPERTENSION Status: Acute Current Visit: Yes (3) Hypoxemia SNOMED Code(s): 498810029 ICD Code: R09.02 - HYPOXEMIA Status: Acute Current Visit: Yes (4) Pneumonia due to COVID-19 virus SNOMED Code(s): 870187637191344065 ICD Code: U07.1 - COVID-19; J12.82 - PNEUMONIA DUE TO CORONAVIRUS DISEASE 2019 Status: Acute Current Visit: Yes - Patient Data Vitals - Most Recent: Last Vital Signs Temp 36.6 C 04/07/21 11:48 Pulse 87 04/07/21 11:48 Resp 18 04/07/21 13:31 BP 144/73 H 04/07/21 11:48 Pulse Ox 90 L 04/07/21 13:31 I&O - Last 24 hours: Intake & Output 04/06/21 04/07/21 04/07/21 22:59 06:59 14:59 Intake Total 800 150 Output Total 0 Balance 800 150 Lab Results - Last 24 hrs: Laboratory Results - last 24 hr 04/07/21 04/07/21 Range/Units 05:50 05:50 WBC 6.38 (4.0-11.0) K/uL RBC 4.46 (4.30-5.90) M/uL Hgb 13.1 (12.0-16.0) g/dL Hct 40.1 (36.0-46.0) % MCV 89.9 (80.0-98.0) fL MCH 29.4 (27.0-32.0) pg MCHC 32.7 (31.0-37.0) g/dL RDW Std Deviation 43.3 (28.0-62.0) fl RDW Coeff of Zulma 13 (11.0-15.0) % Plt Count 671 H (150-400) K/uL MPV 10.60 (7.40-12.00) fL Neut % (Auto) 71.3 (48.0-80.0) % Lymph % (Auto) 21.5 (16.0-40.0) % [place] % (Auto) 6.1 (0.0-15.0) % Eos % (Auto) 0.9 (0.0-7.0) % Baso % (Auto) 0.2 (0.0-1.5) % Neut # (Auto) 4.6 (1.4-5.7) K/uL Lymph # (Auto) 1.4 (0.6-2.4) K/uL [place] # (Auto) 0.4 (0.0-0.8) K/uL Eos # (Auto) 0.1 (0.0-0.7) K/uL Baso # (Auto) 0.0 (0.0-0.1) K/uL Nucleated RBC % 0.0 /100WBC Nucleated RBCs # 0 K/uL Sodium 142 (136-145) mmol/L Potassium 4.3 (3.5-5.1) mmol/L Chloride 104 (98-107) mmol/L Carbon Dioxide 27.9 (21.0-32.0) mmol/L BUN 28 H (7.0-18.0) mg/dL Creatinine 1.1 H (0.6-1.0) mg/dL Est Cr Clr Drug Dosing 63.62 mL/min Estimated GFR (MDRD) 56.2 ml/min Glucose 91 (74-106) mg/dL Calcium 9.1 (8.5-10.1) mg/dL Total Bilirubin 0.4 (0.2-1.0) mg/dL AST 20 (15-37) IU/L ALT 82 H (14-63) IU/L Alkaline Phosphatase 76 (46-116) U/L Total Protein 7.0 (6.4-8.2) g/dL Albumin 2.6 L (3.4-5.0) g/dL Globulin 4.4 H (2.6-4.0) g/dL Albumin/Globulin Ratio 0.6 L (0.9-1.6) Med Orders - Current: Current Medications Acetaminophen (Acetaminophen 325 Mg Tab) 650 mg PO Q6H PRN PRN Reason: Pain/Fever Last Admin: 04/02/21 09:51 Dose: 650 mg Documented by: Albuterol/Ipratropium (Albuterol/Ipratropium 4 Gm Inhalation [place]) 0 gm INH Q4HRRT PRN PRN Reason: Wheezing Baricitinib (Baricitinib 2 Mg Tab) 4 mg PO DAILY [facility] Last Admin: 04/07/21 08:21 Dose: 4 mg Documented by: Dexamethasone (Dexamethasone 4 Mg Tab) 6 mg PO DAILY [facility] Last Admin: 04/07/21 08:20 Dose: 6 mg Documented by: Enoxaparin Sodium (Enoxaparin 40 Mg/0.4 Ml Syringe) 40 mg SUBCUT Q24H [facility] Last Admin: 04/06/21 17:33 Dose: 40 mg Documented by: Guaifenesin/Codeine Phosphate (Codeine/Guaifenesin 10-100 Mg/5 Ml Syrup 5 Ml Cup) 5 ml PO Q4H PRN PRN Reason: Cough Last Admin: 04/01/21 02:03 Dose: 5 ml Documented by: Levofloxacin (Levofloxacin 750 Mg Tab) 750 mg PO Q24H [facility] Last Admin: 04/06/21 15:35 Dose: 750 mg Documented by: Ondansetron HCl (Ondansetron 4 Mg/2 Ml Sdv) 4 mg IVPUSH Q6H PRN PRN Reason: Nausea/Vomiting Pantoprazole Sodium (Pantoprazole 40 Mg Tab.Cr) 40 mg PO DAILY [facility] Last Admin: 04/07/21 08:21 Dose: 40 mg Documented by: Ramipril (Ramipril 10 Mg Cap) 10 mg PO DAILY [facility] Last Admin: 04/07/21 08:21 Dose: 10 mg Documented by: Sodium Chloride (Sodium Chloride 0.9% 10 Ml Syringe) 10 ml FLUSH ASDIRECTED PRN PRN Reason: Keep Vein Open Last Admin: 03/26/21 10:51 Dose: 10 ml Documented by: Sodium Chloride (Sodium Chloride 0.9% 2.5 Ml Syringe) 2.5 ml FLUSH ASDIRECTED PRN PRN Reason: Keep Vein Open Last Admin: 03/26/21 10:51 Dose: 2.5 ml Documented by: Discontinued Medications Acetaminophen (Acetaminophen 325 Mg Tab) 650 mg PO NOW ONE Stop: 03/26/21 10:45 Last Admin: 03/26/21 10:50 Dose: 650 mg Documented by: Albuterol/Ipratropium (Albuterol/Ipratropium 4 Gm Inhalation [place]) 1 gm INH Q4HRRT PRN PRN Reason: Dyspnea Albuterol/Ipratropium (Albuterol/Ipratropium 4 Gm Inhalation [place]) 0 gm INH Q4HRRT [facility] Last Admin: 04/05/21 14:24 Dose: 1 puff Documented by: Baricitinib (Baricitinib 2 Mg Tab) 4 mg PO DAILY [facility] Last Admin: 03/29/21 08:19 Dose: 4 mg Documented by: Guaifenesin/Dextromethorphan (Guaifenesin/Dextromethorphan 100-10 Mg/5 Ml Soln 10 Ml Cup) 10 ml PO Q4H PRN PRN Reason: Cough Last Admin: 03/27/21 09:24 Dose: 10 ml Documented by: Sodium Chloride (Normal Saline) 1,000 mls @ 999 mls/hr IV .BOLUS ONE Stop: 03/26/21 11:44 Last Admin: 03/26/21 10:51 Dose: 999 mls/hr Documented by: Remdesivir 200 mg/ Sodium (Chloride) 250 mls @ 250 mls/hr IV ONETIME ONE Stop: 03/26/21 13:29 Last Admin: 03/26/21 12:44 Dose: 250 mls/hr Documented by: Remdesivir 100 mg/ Sodium (Chloride) 100 mls @ 100 mls/hr IV Q24H [facility] Stop: 03/30/21 14:29 Last Admin: 03/30/21 12:35 Dose: 100 mls/hr Documented by: Levofloxacin/Dextrose 750 mg/ (Premix) 150 mls @ 100 mls/hr IV Q24H [facility] Last Admin: 03/26/21 22:45 Dose: 100 mls/hr Documented by: Piperacillin Sod/Tazobactam (Sod 4.5 gm/ Sodium Chloride) 100 mls @ 100 mls/hr IV Q8H [facility] Last Admin: 04/03/21 10:54 Dose: 100 mls/hr Documented by: Vancomycin HCl 1.5 gm/ Premix 300 mls @ 200 mls/hr IV Q8H [facility] Last Admin: 03/29/21 05:02 Dose: 200 mls/hr Documented by: Vancomycin HCl 1.5 gm/ Premix 300 mls @ 200 mls/hr IV Q8H [facility] Last Admin: 04/02/21 13:42 Dose: Not Given Documented by: Vancomycin HCl 1.25 gm/ Sodium (Chloride) 250 mls @ 166.667 mls/hr IV Q8H [facility] Last Admin: 04/04/21 06:16 Dose: 166.667 mls/hr Documented by: Ketorolac Tromethamine (Ketorolac 30 Mg/Ml Sdv) 30 mg IVPUSH ONETIME ONE Stop: 03/26/21 10:45 Last Admin: 03/26/21 10:50 Dose: 30 mg Documented by: Ondansetron HCl (Ondansetron 4 Mg/2 Ml Sdv) 4 mg IVPUSH ONETIME ONE Stop: 03/26/21 10:45 Last Admin: 03/26/21 10:50 Dose: 4 mg Documented by: Potassium Chloride (Potassium Chloride 20 Meq Tab.Er) 40 meq PO ONETIME ONE Stop: 03/26/21 20:01 Last Admin: 03/26/21 21:20 Dose: 40 meq Documented by: Ramipril (Ramipril 10 Mg Cap) 10 mg PO ONETIME ONE Stop: 03/26/21 21:16 Last Admin: 03/26/21 21:20 Dose: 10 mg Documented by: Vancomycin HCl (Pharmacy To Dose - Vancomycin) 1 dose .XX ASDIRECTED [facility]
== END 2021-04-07 14:50 | disposition home or self-care (01) | DRG 177 ==
LOC: MW.ED 10:00 → MW.MS 13:33 → MW.ICU 03-31 10:44 → MW.MS 04-01 13:53 → MW.ICU 04-03 18:30 → MW.MS 04-05 19:35
PROVIDERS: ADMIT Student in an Organized Health Care Education/Training Program; ATTEND Student in an Organized Health Care Education/Training Program
PROC: XW033E5 Introduction of Remdesivir Anti-infective into Peripheral Vein, Percutaneous Approach, New Technology Group 5 (ICD-10-PCS; principal; 2021-03-26)
PROC: 5A0955A Assistance with Respiratory Ventilation, Greater than 96 Consecutive Hours, High Flow/Velocity Cannula (ICD-10-PCS; 2021-03-26)
PROC: 3E0DX3Z Introduction of Anti-inflammatory into Mouth and Pharynx, External Approach (ICD-10-PCS; 2021-03-26)
PROC: XW0DXM6 Introduction of Baricitinib into Mouth and Pharynx, External Approach, New Technology Group 6 (ICD-10-PCS; 2021-03-26)
PROC: 8E0ZXY6 Isolation (ICD-10-PCS; 2021-03-26)
PROC: 5A09457 Assistance with Respiratory Ventilation, 24-96 Consecutive Hours, Continuous Positive Airway Pressure (ICD-10-PCS; 2021-03-31)
DX: U07.1 COVID-19 (principal); J96.01 Acute respiratory failure with hypoxia; J12.82 Pneumonia due to coronavirus disease 2019; Z79.899 Other long term (current) drug therapy; I10 Essential (primary) hypertension; H54.7 Unspecified visual loss; E87.6 Hypokalemia
CPT/HCPCS: 36415; 71045; 71045-26; 80053; 80202; 83605; 84145; 84484; 85025; 86140; 87040; 87077; 87186; 93005; 93010; 94640; 94660; 96365; 96367; 96375; 99284; 99285-25; A9270-GY; J1650; J1885; J1956; J2405; J2543; J3370; J7030; J7050; J8540